=== PATIENT | female | born 1950 | race Caucasian/White ===

== ENCOUNTER 2021-11-08 09:55 | Outpatient (CLI) | payer MEDICARE, MEDICAID, SELFPAY ==
--- NOTE | 2021-11-08 10:03 | USCV_ITS ---
Paulina Kraus Age: 71 Gender: F : 1950 Exam Date: 11/08/2021 10:17 Ordering Phys: Gerald Cooper XX Technologist: [place] [facility] [place]: Aortic stenosis BP: 125 / 70 HR: 74 Rhythm: Sinus Technical Quality: Adequate MEASUREMENTS (Male / Female) Normal Values 2D ECHO LV Diastolic Diameter PLAX 4.0 cm 4.2 - 5.9 / 3.9 - 5.3 cm LV Systolic Diameter PLAX 2.1 cm IVS Diastolic Thickness 1.1 cm 0.6 - 1.0 / 0.6 - 0.9 cm IVS Systolic Thickness 1.3 cm LVPW Diastolic Thickness 1.1 cm 0.6 - 1.0 / 0.6 - 0.9 cm LVPW Systolic Thickness 1.3 cm LVOT Diameter 2.1 cm LV Ejection Fraction 2D Teich 79.0 % LV Ejection Fraction MOD 2C 71.9 % LV Ejection Fraction 2C AL 72.1 % LA Diameter 3.7 cm LA Width 3.8 cm LA Height 5.0 cm RA Width 3.8 cm RA Height 4.5 cm M-MODE LV Diastolic Diameter MM 4.2 cm 4.2 - 5.9 / 3.9 - 5.3 cm LV Systolic Diameter MM 2.7 cm LV Ejection Fraction MM Teich 66.6 % IVS Diastolic Thickness MM 1.2 cm 0.6 - 1.0 / 0.6 - 0.9 cm IVS Systolic Thickness MM 1.8 cm LVPW Diastolic Thickness MM 1.1 cm 0.6 - 1.0 / 0.6 - 0.9 cm LVPW Systolic Thickness MM 2.0 cm RV Diastolic Diameter MM 1.7 cm Aortic Annulus Diameter 2.7 cm LA Ao Ratio MM 1.4 MV E Point Septal Separation 0.9 cm DOPPLER AV Peak Velocity 512.8 cm/s LVOT Peak Velocity 108.0 cm/s AV Area Cont Eq vti 0.8 cm squared AV Area Cont Eq pk 0.7 cm squared MV Area PHT 5.0 cm squared Mitral E to A Ratio 0.7 MV E' Velocity 50.0 cm/s Mitral E to MV E' Ratio 15.7 Mitral E to LV E' Lateral Ratio 16.6 Mitral E to LV E' Septal Ratio 15.0 TR Peak Velocity 281.0 cm/s TR Peak Gradient 31.6 mmHg TV Peak E Velocity 68.0 cm/s Right Atrial Pressure 3.0 mmHg Pulmonary Artery Systolic Pressu 34.6 mmHg FINDINGS Left Ventricle Normal left ventricular cavity size. Normal left ventricular systolic function. Moderate concentric left ventricular hypertrophy. Left ventricular ejection fraction is estimated at 70 %. No regional wall motion abnormalities. Grade I diastolic dysfunction (abnormal relaxation filling pattern), normal to mildly elevated filling pressures. Right Ventricle Normal right ventricular size and systolic function. RVSP could not be calculated due to incomplete tricuspid regurgitation velocity profile. Right Atrium Normal right atrial size. Left Atrium Mildly increased left atrial size. Mitral Valve Moderate mitral annular calcification. No mitral valve stenosis. Trace mitral valve regurgitation. Aortic Valve Markedly thickened and calcified aortic valve. Severe aortic valve stenosis, pweak velocity 4.8 m/s, peak gradient 93 mm Hg, mean gradient 44 mmHg, HILDA 0.81 cm squared. Trace aortic valve regurgitation. Tricuspid Valve Tricuspid valve not well visualized. Pulmonic Valve Pulmonic valve not well visualized. No pulmonary valve stenosis. Pericardium No pericardial effusion. Aorta Normal size aortic root and proximal ascending aorta. Normal sized inferior vena cava. CONCLUSIONS 1. Normal left ventricular cavity size and systolic function. Moderate concentric left ventricular hypertrophy. Left ventricular ejection fraction is estimated at 70 %. No regional wall motion abnormalities. Grade I diastolic dysfunction (abnormal relaxation filling pattern), normal to mildly elevated filling pressures. 2. Severe aortic valve stenosis, pweak velocity 4.8 m/s, peak gradient 93 mm Hg, mean gradient 44 mmHg, HILDA 0.81 cm squared. 3. No prior similar studies to compare. Carolina Narayanan MD (Electronically Signed) Final Date: 09 November 2021 18:05 S
== END 2021-11-08 09:56 | disposition home or self-care (01) ==
PROVIDERS: PCP Specialist; Visit Provider Family Medicine
DX: I35.0 Nonrheumatic aortic (valve) stenosis (principal)
CPT/HCPCS: 93306

== ENCOUNTER → 2022-01-03 11:01 | Outpatient (BNVA) | payer MEDICARE, MEDICAID, SELFPAY | PROVIDERS: PCP Family Medicine; Visit Provider Internal Medicine Cardiovascular Disease | DX: I35.0 Nonrheumatic aortic (valve) stenosis (principal); E78.5 Hyperlipidemia, unspecified; E03.9 Hypothyroidism, unspecified | CPT/HCPCS: 99213 ==

== ENCOUNTER 2023-02-15 11:15 | Outpatient (CLI) | payer MEDICARE, SELFPAY ==
--- NOTE | 2023-02-15 11:31 | MM_ITS ---
WS: [id number] . BILATERAL SCREENING DIGITAL TOMOSYNTHESIS MAMMOGRAM WITH CAD HISTORY: SCREENING COMPARISON: 05/20/2018 Bilateral CC and MLO views with tomosynthesis and synthetic mammography submitted. Computer aided det ection analyzed. Breast composition: There are scattered areas of fibroglandular density. No suspicious masses, microc alcifications or architectural distortion. Bilateral breast calcifications. MM/[place] [id number] IMPRESSION: BI-RADS: 2-Benign FOLLOW UP: 1 Year Follow-up
== END 2023-02-15 11:16 | disposition home or self-care (01) ==
LOC: RAD 11:21
PROVIDERS: PCP Family Medicine; Visit Provider Registered Nurse
DX: Z12.31 Encounter for screening mammogram for malignant neoplasm of breast (principal)
CPT/HCPCS: 77063; 77067

== ENCOUNTER 2023-03-05 19:11 | Inpatient (IN) | payer MEDICARE, MEDICAID, SELFPAY ==
[2023-03-05 19:40] VITALS: BP 81/57; PULSE 95; RESP 16; TEMP 37.1; O2SAT 94; BMI 55.9
--- NOTE | 2023-03-05 20:03 | CTR_ITS ---
PROCEDURE INFORMATION: Exam: CT Head Without Contrast Exam date and time: 03/05/2023 8:32 PM Age: 72 years old Clinical indication: Pain; Headache; Additional info: Fall, head pain TECHNIQUE: Imaging protocol: Computed tomography of the head without contrast. Radiation optimization: All CT scans at this facility use at least one of these dose optimization techniques: automated exposure control; mA and/or kV adjustment per patient size (includes targeted exams where dose is matched to clinical indication); or iterative reconstruction. REPORTING DATA: Count of CT and Cardiac NM exams in prior 12 months: This patient has received 0 known CTs and 0 known cardiac nuclear medicine studies in the 12 months prior to the current study. COMPARISON: No relevant prior studies available. RADIATION DOSE METRICS: Total DLP (mGy-cm): 1841 FINDINGS: Brain: There is a cystic mass emanating from the left parasellar region measuring 3.8 x 3.0 cm maximum size for example on series 17, image 41. There are multiple regions of hypodensity in the left thalamus which may be chronic lacunar-type infarcts. There is mild mass effect with partial effacement of the left aspect of the 3rd ventricle. No acute hemorrhage. There are mild involutional white matter changes. No significant midline shift. Cerebral ventricles: Normal ventricular size. No ventriculomegaly. Paranasal sinuses: Visualized sinuses are unremarkable. No fluid levels. Mastoid air cells: Visualized mastoid air cells are well aerated. Bones/joints: Unremarkable. No acute fracture. Soft tissues: Unremarkable. CT/CT head wo con* [id number] IMPRESSION: 1. No acute intracranial findings. 2. There is a cystic mass in the left parasellar region with mass effect measuring 3.8 x 3.0 cm maximum size. There is adjacent regions of hypodensity in the left thalamus which may be related to chronic lacunar-type infarcts. Further characterization with MRI brain with and without contrast material is recommended. Differential diagnosis is most likely an arachnoid cyst or dermoid/epidermoid.
--- NOTE | 2023-03-05 20:11 | W.ED.FALL ---
Documented by User: Mike Randle DO 03/05/23 20:15 HPI - Fall General: Chief Complaint: Fall Stated Complaint: fall Time Seen by Provider: 03/05/23 19:56 History of Present Illness: Patient brought to the ER by EMS with complaints of falling off her bed injuring the back of her head approximately 1700. Patient denies being on any blood thinners any loss of consciousness or nausea vomiting. Patient is altered at baseline due to Alzheimer's but daughter states she is acting more tired than normal. MD complaint: fall Onset (ago): hour(s) (3 hours ago) Fall from: out of bed Place fall occurred: home Symptoms prior to fall: none Location of injury: head Associated symptoms-after fall: Reports no associated symptoms; Denies abdominal pain or chest pain Review of Systems General: Reports: 10 or more systems reviewed and unremarkable except in HPI and below Const: Denies: fever(s) or chills Eyes: Denies: change in vision or photophobia ENMT: Denies: throat pain or odynophagia Card: Denies: chest pain, palpitations or irregular heart rhythm Resp: Denies: dyspnea, productive cough or non-productive cough GI: Denies: abdominal pain, nausea, vomiting or diarrhea PFSH ED PFSH: Medical History COPD (chronic obstructive pulmonary disease) Dyslipidemia GERD (gastroesophageal reflux disease) Hypothyroidism Surgical History H/O: hysterectomy Social History Smoking and tobacco status: current every day smoker Physical Exam Const: COMMON NORMALS: no acute distress, average body habitus, no limitations, healthy appearing, alert and well nourished HENMT: COMMON NORMALS: normocephalic, hearing grossly normal bilaterally, external ears normal, Normal external nose present and moist oral mucous membranes HEAD & SCALP: normocephalic and other (Abrasion to posterior superior occipital area.) NOSE: Normal external nose present EXTERNAL EAR: Yes external ears normal Eye: COMMON NORMALS: Equal, round and reactive pupils present, EOMs intact bilaterally, conjunctivae normal and no scleral icterus CONJUNCTIVA: Yes conjunctivae normal PUPIL: Yes Equal, round and reactive pupils present Neck/C-Spine: COMMON NORMALS: full ROM, no lymphadenopathy, supple, no meningeal signs, no JVD and Thyroid normal THYROID: Thyroid normal Lymph: LYMPHATIC: no lymphadenopathy noted Chest: COMMONS NORMALS: normal inspection of the chest and normal palpation of entire chest wall Resp: COMMON NORMALS: normal respiratory effort, No retractions, No use of accessory muscles and clear to auscultation bilaterally AUSCULTATION: clear to auscultation bilaterally Cardio: COMMON NORMALS: no JVD, regular rate, regular rhythm, S1 normal heart sound present, S2 normal heart sound present, No gallops present (Cardio), No clicks present (Cardio), No murmurs present (Cardio) and No rub (Cardio) RATE: regular rate RHYTHM: regular rhythm HEART SOUNDS: S1 normal heart sound present and S2 normal heart sound present GI: COMMON NORMALS: Normal to inspection, nondistended, normoactive bowel sounds present, Soft to palpation, non-tender, No hepatosplenomegaly present and no masses PALPATION: Yes Soft to palpation and Yes No hepatosplenomegaly present : COMMON NORMALS: Yes no CVA tenderness BLADDER/KIDNEY EXAM: Yes no CVA tenderness Back/Pelvis: COMMON NORMALS: no CVA tenderness, thoracic and lumbar spine normal to inspection and no thoracic nor lumbar tenderness Neuro: SENSORIUM/ORIENTATION: Yes alert MENINGEAL SIGNS: Yes no meningeal signs Course Vital Signs: Vital signs: Vital Signs Temperature 98.8 F 03/05/23 19:40 Pulse Rate 90 03/05/23 23:12 Respiratory Rate 18 03/05/23 23:12 Blood Pressure 91/54 03/05/23 23:12 Pulse Oximetry 97 03/05/23 23:12 Oxygen Delivery Me thod Room Air 03/05/23 23:12 MDM - Fall Differential Diagnosis Likely concussion without loss of consciousness; Unlikely syncope, dislocation of shoulder region, fracture of wrist, compression fracture or concussion with loss of consciousness Medical Records I reviewed the patient's medical records. Lab Data I reviewed the patient's lab results. 03/05/23 20:05 03/05/23 20:[address] 03/05/23 20:03 IMPRESSION: 1. No acute intracranial findings. 2. There is a cystic mass in the left parasellar region with mass effect measuring 3.8 x 3.0 cm maximum size. There is adjacent regions of hypodensity in the left thalamus which may be related to chronic lacunar-type infarcts. Further characterization with MRI brain with and without contrast material is recommended. Differential diagnosis is most likely an arachnoid cyst or dermoid/epidermoid. ADDENDUM: 03/05/232132 THIS REPORT CONTAINS FINDINGS THAT MAY BE CRITICAL TO PATIENT CARE. The findings were verbally communicated via telephone conference with Mike Byrne at 9:30 PM CDT on 03/05/2023. The findings were acknowledged and understood. Head MRI 03/05/23 21:43 IMPRESSION: 1. No acute intracranial findings. 2. 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 Adjacent to this there is cystic changes in the left thalamus and cerebral peduncle which are most likely giant perivascular spaces. No suspicious appearing intracranial mass. Chest X-Ray 03/05/23 21:50 IMPRESSION: Mild perihilar infiltrates. Correlate for pulmonary vascular congestion versus pneumonia. Laboratory Results WBC 25.9 10^3/uL (4.0-10.0) H 03/05/23 20:05 RBC 4.16 10^6/uL (4.1-5.3) 03/05/23 20:05 Hgb 12.9 g/dL (11.5-15.3) 03/05/23 20:05 Hct 40.0 % (37.0-47.0) 03/05/23 20:05 MCV 96.2 fl (81-99) 03/05/23 20:05 MCH 31.0 pg (28.0-34.0) 03/05/23 20:05 MCHC 32.3 g/dL (30.0-36.0) 03/05/23 20:05 RDW 13.2 % (12.1-15.1) 03/05/23 20:05 Plt Count 313 10^3/cmm (130-400) 03/05/23 20:05 MPV 10.1 fL (7.4-10.4) 03/05/23 20:05 Neut % (Auto) 90.2 % 03/05/23 20:05 Lymph % (Auto) 2.6 % 03/05/23 20:05 [place] % (Auto) 6.1 % 03/05/23 20:05 Eos % (Auto) 0.0 % 03/05/23 20:05 Baso % (Auto) 0.3 % 03/05/23 20:05 Neut # (Auto) 23.39 10^3/uL (1.8-7.7) H 03/05/23 20:05 Lymph # (Auto) 0.7 10^3/uL (0.8-4.8) L 03/05/23 20:05 [place] # (Auto) 1.6 10^3/uL (0.2-0.9) H 03/05/23 20:05 Eos # (Auto) 0.0 10^3/uL (0.0-0.8) 03/05/23 20:05 Baso # (Auto) 0.1 10^3/uL (0.0-0.1) 03/05/23 20:05 Nucleated RBC % (auto) 0 % 03/05/23 20:05 Nucleated RBCs # 0.0 /100WBC 03/05/23 20:05 Sodium 136 mmol/L (136-145) 03/05/23 20:05 Potassium 3.7 mmol/L (3.5-5.1) 03/05/23 20:05 Chloride 98 mmol/L (98-107) 03/05/23 20:05 Carbon Dioxide 22 mmol/L (22-29) 03/05/23 20:05 Anion Gap 19.7 (5-19) H 03/05/23 20:05 BUN 17 mg/dL (8-23) 03/05/23 20:05 Creatinine 1.0 mg/dL (0.5-0.9) H 03/05/23 20:05 GFR Calculation Not Reportable 03/05/23 20:05 Glucose 119 mg/dL (65-115) H 03/05/23 20:05 Calculated Osmolality 285 mOsm/kg (285-295) 03/05/23 20:05 Lactic Acid 2.0 mmol/L (0.5-2.2) 03/05/23 22:13 Calcium 9.2 mg/dL (8.5-10.5) 03/05/23 20:05 Total Bilirubin 0.5 mg/dL (0.15-1.2) 03/05/23 20:05 AST 36 U/L (0-32) H 03/05/23 20:05 ALT 11 U/L (0-33) 03/05/23 20:05 Alkaline Phosphatase 138 U/L (35-105) H 03/05/23 20:05 Total Protein 7.2 g/dL (6.6-8.7) 03/05/23 20:05 Albumin 3.9 g/dL (3.5-5.2) 03/05/23 20:05 Globulin 3.3 g/dL (1.3-4.6) 03/05/23 20:05 Procalcitonin 1.15 ng/mL (0-0.5) H 03/05/23 22:13 Urine Color Yellow (Yellow) 03/05/23 21:11 Urine Appearance Sl hazy (CLEAR) A 03/05/23 21:11 Urine pH 5 (5-7) 03/05/23 21:11 Ur Specific [place] 1.020 (1.005-1.030) 03/05/23 21:11 Urine Protein Trace (Negative) 03/05/23 21:11 Urine Glucose (UA) Norm (Normal) 03/05/23 21:11 Urine Ketones Negative (Negative) 03/05/23 21:11 Urine Blood 2+ (Negative) H 03/05/23 21:11 Urine Nitrate Positive (Negative) H 03/05/23 21:11 Urine Bilirubin Neg (Negative) 03/05/23 21:11 Urine Urobilinogen Neg mg/dL (Negative) 03/05/23 21:11 Ur Leukocyte Esterase Negative (Negative) 03/05/23 21:11 Urine RBC 0-4 /hpf (0-2) H 03/05/23 21:11 Urine WBC 5-10 /hpf (0-5) H 03/05/23 21:11 Ur Squamous Epith Cells 0-4 /hpf (0-5) H 03/05/23 21:11 Amorphous Sediment Not Reportable 03/05/23 21:11 Urine Bacteria 4+ /hpf (NONE) H 03/05/23 21:11 Discharge Plan Discharge Patient Disposition: Admitted As Inpatient Clinical Impression: Acute cystitis, Closed head injury Condition: Stable Prescriptions: No Action oxybutynin chloride 5 mg tablet 5 mg PO TID sennosides-docusate sodium [Stimulant Laxative Plus] 8.6-50 mg tablet 1 tab-cap PO BID venlafaxine 75 mg capsule,extended release 24hr 75 mg PO DAILY atorvastatin 20 mg tablet 20 mg PO DAILY albuterol sulfate [Ventolin HFA] 90 mcg/actuation HFA aerosol inhaler 1 inh inhalation BID famotidine 20 mg tablet 20 mg PO BID ondansetron HCl 4 mg tablet 4 mg PO Q8H PRN Referrals: Gerald Cooper [Primary Care Provider] - Coding Level of Care Code ED Satellite Installation Technician for Chg Fwd Documented by User: Ronn Carr MD 03/05/23 23:38 HPI - Fall General: Chief Complaint: Fall Stated Complaint: fall Time Seen by Provider: 03/05/23 19:56 PFS ED PFSH: Medical History COPD (chronic obstructive pulmonary disease) Dyslipidemia GERD (gastroesophageal reflux disease) Hypothyroidism Surgical History H/O: hysterectomy Social History Smoking and tobacco status: current every day smoker Course Vital Signs: Vital signs: Vital Signs Temperature 98.8 F 03/05/23 19:40 Pulse Rate 90 03/05/23 23:12 Respiratory Rate 18 03/05/23 23:12 Blood Pressure 91/54 03/05/23 23:12 Pulse Oximetry 97 03/05/23 23:12 Oxygen Delivery Me thod Room Air 03/05/23 23:12 MDM - Fall Medical Decision Making Patient presents after a fall MRI does show a cyst no acute findings she has no signs of a bleed she does have a urinary tract infection with a leukocytosis will admit at this time for treatment. I took care of her from Dr. Randle to follow the MRI. Lab Data 03/05/23 20:05 03/05/23 20:[address] 03/05/23 20:03 IMPRESSION: 1. No acute intracranial findings. 2. There is a cystic mass in the left parasellar region with mass effect measuring 3.8 x 3.0 cm maximum size. There is adjacent regions of hypodensity in the left thalamus which may be related to chronic lacunar-type infarcts. Further characterization with MRI brain with and without contrast material is recommended. Differential diagnosis is most likely an arachnoid cyst or dermoid/epidermoid. ADDENDUM: 03/05/232132 THIS REPORT CONTAINS FINDINGS THAT MAY BE CRITICAL TO PATIENT CARE. The findings were verbally communicated via telephone conference with Mike Byrne at 9:30 PM CDT on 03/05/2023. The findings were acknowledged and understood. Head MRI 03/05/23 21:43 IMPRESSION: 1. No acute intracranial findings. 2. 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 Adjacent to this there is cystic changes in the left thalamus and cerebral peduncle which are most likely giant perivascular spaces. No suspicious appearing intracranial mass. Chest X-Ray 03/05/23 21:50 IMPRESSION: Mild perihilar infiltrates. Correlate for pulmonary vascular congestion versus pneumonia. Laboratory Results WBC 25.9 10^3/uL (4.0-10.0) H 03/05/23 20:05 RBC 4.16 10^6/uL (4.1-5.3) 03/05/23 20:05 Hgb 12.9 g/dL (11.5-15.3) 03/05/23 20:05 Hct 40.0 % (37.0-47.0) 03/05/23 20:05 MCV 96.2 fl (81-99) 03/05/23 20:05 MCH 31.0 pg (28.0-34.0) 03/05/23 20:05 MCHC 32.3 g/dL (30.0-36.0) 03/05/23 20:05 RDW 13.2 % (12.1-15.1) 03/05/23 20:05 Plt Count 313 10^3/cmm (130-400) 03/05/23 20:05 MPV 10.1 fL (7.4-10.4) 03/05/23 20:05 Neut % (Auto) 90.2 % 03/05/23 20:05 Lymph % (Auto) 2.6 % 03/05/23 20:05 [place] % (Auto) 6.1 % 03/05/23 20:05 Eos % (Auto) 0.0 % 03/05/23 20:05 Baso % (Auto) 0.3 % 03/05/23 20:05 Neut # (Auto) 23.39 10^3/uL (1.8-7.7) H 03/05/23 20:05 Lymph # (Auto) 0.7 10^3/uL (0.8-4.8) L 03/05/23 20:05 [place] # (Auto) 1.6 10^3/uL (0.2-0.9) H 03/05/23 20:05 Eos # (Auto) 0.0 10^3/uL (0.0-0.8) 03/05/23 20:05 Baso # (Auto) 0.1 10^3/uL (0.0-0.1) 03/05/23 20:05 Nucleated RBC % (auto) 0 % 03/05/23 20:05 Nucleated RBCs # 0.0 /100WBC 03/05/23 20:05 Sodium 136 mmol/L (136-145) 03/05/23 20:05 Potassium 3.7 mmol/L (3.5-5.1) 03/05/23 20:05 Chloride 98 mmol/L (98-107) 03/05/23 20:05 Carbon Dioxide 22 mmol/L (22-29) 03/05/23 20:05 Anion Gap 19.7 (5-19) H 03/05/23 20:05 BUN 17 mg/dL (8-23) 03/05/23 20:05 Creatinine 1.0 mg/dL (0.5-0.9) H 03/05/23 20:05 GFR Calculation Not Reportable 03/05/23 20:05 Glucose 119 mg/dL (65-115) H 03/05/23 20:05 Calculated Osmolality 285 mOsm/kg (285-295) 03/05/23 20:05 Lactic Acid 2.0 mmol/L (0.5-2.2) 03/05/23 22:13 Calcium 9.2 mg/dL (8.5-10.5) 03/05/23 20:05 Total Bilirubin 0.5 mg/dL (0.15-1.2) 03/05/23 20:05 AST 36 U/L (0-32) H 03/05/23 20:05 ALT 11 U/L (0-33) 03/05/23 20:05 Alkaline Phosphatase 138 U/L (35-105) H 03/05/23 20:05 Total Protein 7.2 g/dL (6.6-8.7) 03/05/23 20:05 Albumin 3.9 g/dL (3.5-5.2) 03/05/23 20:05 Globulin 3.3 g/dL (1.3-4.6) 03/05/23 20:05 Procalcitonin 1.15 ng/mL (0-0.5) H 03/05/23 22:13 Urine Color Yellow (Yellow) 03/05/23 21:11 Urine Appearance Sl hazy (CLEAR) A 03/05/23 21:11 Urine pH 5 (5-7) 03/05/23 21:11 Ur Specific [place] 1.020 (1.005-1.030) 03/05/23 21:11 Urine Protein Trace (Negative) 03/05/23 21:11 Urine Glucose (UA) Norm (Normal) 03/05/23 21:11 Urine Ketones Negative (Negative) 03/05/23 21:11 Urine Blood 2+ (Negative) H 03/05/23 21:11 Urine Nitrate Positive (Negative) H 03/05/23 21:11 Urine Bilirubin Neg (Negative) 03/05/23 21:11 Urine Urobilinogen Neg mg/dL (Negative) 03/05/23 21:11 Ur Leukocyte Esterase Negative (Negative) 03/05/23 21:11 Urine RBC 0-4 /hpf (0-2) H 03/05/23 21:11 Urine WBC 5-10 /hpf (0-5) H 03/05/23 21:11 Ur Squamous Epith Cells 0-4 /hpf (0-5) H 03/05/23 21:11 Amorphous Sediment Not Reportable 03/05/23 21:11 Urine Bacteria 4+ /hpf (NONE) H 03/05/23 21:11 Discharge Plan Discharge Patient Disposition: Admitted As Inpatient Clinical Impression: Acute cystitis, Closed head injury Condition: Stable Prescriptions: No Action oxybutynin chloride 5 mg tablet 5 mg PO TID sennosides-docusate sodium [Stimulant Laxative Plus] 8.6-50 mg tablet 1 tab-cap PO BID venlafaxine 75 mg capsule,extended release 24hr 75 mg PO DAILY atorvastatin 20 mg tablet 20 mg PO DAILY albuterol sulfate [Ventolin HFA] 90 mcg/actuation HFA aerosol inhaler 1 inh inhalation BID famotidine 20 mg tablet 20 mg PO BID ondansetron HCl 4 mg tablet 4 mg PO Q8H PRN Referrals: Gerald Cooper [Primary Care Provider] - Coding Level of Care Code ED Satellite Installation Technician for Brendan Peralta
[2023-03-05 20:12] VITALS: BP 79/58; PULSE 93; RESP 18; O2SAT 94
[2023-03-05 20:15] LABS: Basophils # 0.1 10^3/uL (0.0-0.1); Basophils % 0.3 %; Hemoglobin 12.9 g/dL (11.5-15.3); Lymphocytes # 0.7 10^3/uL (0.8-4.8); Lymphocytes % 2.6 %; Mean Corpuscular HGB Conc 32.3 g/dL (30.0-36.0); Mean Corpuscular Volume 96.2 fl (81-99); Mean Platelet Volume 10.1 fL (7.4-10.4); Monocytes # 1.6 10^3/uL (0.2-0.9); Monocytes % 6.1 %; Neutrophils # 23.39 10^3/uL (1.8-7.7); Neutrophils % 90.2 %; Nucleated Red Blood Cells % 0 %; Platelet Count 313 10^3/cmm (130-400); Red Blood Count 4.16 10^6/uL (4.1-5.3); Red Cell Distribution Width 13.2 % (12.1-15.1); White Blood Count 25.9 10^3/uL (4.0-10.0)
[2023-03-05] MEDS: sodium chloride 0.9% 1,000 ML 999 ML IV (20:16)
[2023-03-05 20:40] LABS: Alanine Aminotransferase 11 U/L (0-33); Albumin Level 3.9 g/dL (3.5-5.2); Alkaline Phosphatase 138 U/L (35-105); Anion Gap 19.7 (5-19); Aspartate Amino Transferase 36 U/L (0-32); Blood Urea Nitrogen 17 mg/dL (8-23); Calcium 9.2 mg/dL (8.5-10.5); Carbon Dioxide 22 mmol/L (22-29); Chloride 98 mmol/L (98-107); Globulin 3.3 g/dL (1.3-4.6); Glucose 119 mg/dL (65-115); Osmolality Calculated 285 mOsm/kg (285-295); Potassium 3.7 mmol/L (3.5-5.1); Sodium 136 mmol/L (136-145); Total Bilirubin 0.5 mg/dL (0.15-1.2); Total Protein 7.2 g/dL (6.6-8.7)
[2023-03-05 20:53] VITALS: BP 97/58; PULSE 91; RESP 17; O2SAT 95
[2023-03-05 21:14] VITALS: BP 94/52; PULSE 91; RESP 18; O2SAT 96
[2023-03-05 21:37] VITALS: BP 114/58; PULSE 87; RESP 20; O2SAT 96
[2023-03-05 21:42] LABS: Add Urine Microscopic? YES; Bilirubin Urine Neg (Negative); Blood Urine 2+ (Negative); Glucose Urine UA Norm (Normal); Ketones Urine Negative (Negative); Leukocyte Esterase Urine Negative (Negative); Nitrate Urine Positive (Negative); Protein Urine Trace (Negative); Urine Appearance SL Hazy (CLEAR); Urine Color Yellow (Yellow); Urobilinogen Urine Neg (Negative); pH Urine 5 (5-7)
[2023-03-05 21:43] LABS: Add Urine Culture? Yes; Bacteria Urine 4+ /hpf; RBC Urine 0-4 /hpf (0-2); Squamous Epithelial Cell Urine 0-4 /hpf (0-5)
--- NOTE | 2023-03-05 21:43 | MRR_ITS ---
PROCEDURE INFORMATION: Exam: MR Head Without and With Contrast Exam date and time: 03/05/2023 10:27 PM Age: 72 years old Clinical indication: Injury or trauma; Fall; Other: Fell and hit head; Speech disturbance; Aphasia; Additional info: Abnormal CT, parasellar cytic mass, falls, leukocytosis, pain TECHNIQUE: Imaging protocol: Magnetic resonance imaging of the head without and with contrast. Contrast material: MULTIHANCE; Contrast volume: 20 ml; Contrast route: INTRAVENOUS (IV); Other contrast: Rectal; COMPARISON: CT head wo con* [id number] 03/05/2023 8:32 PM FINDINGS: Brain: In the region of the left choroidal fissure there is a large CSF density mass which measures 3.2 cm AP x 3.4 cm transverse by 2.4 cm craniocaudal. This has suppression on FLAIR imaging, does not demonstrate diffusion restriction and does not enhance on the postcontrast imaging. This bulges towards the left parasellar region along its medial course. The mass elevates the left basal ganglia and compresses inferiorly the left hippocampus. In the left thalamus and cerebral peduncle there are numerous adjacent regions of cystic change measuring in conglomerate dimension 2.3 x 1.9 cm for example on series 601, image 12 which are likely giant perivascular spaces. Mild mass effect appearance seen with partially effaced left lateral ventricle. There is no midline shift. Mild involutional changes of the white matter stable. No diffusion restriction. No acute intracranial hemorrhage. Cerebral ventricles: Normal ventricular size. Bones/joints: Unremarkable. Paranasal sinuses: Scattered paranasal sinus mucosal thickening, without air-fluid level present. Mastoid air cells: Trace [id number]-left mastoid fluid. Orbital cavities: Unremarkable. Soft tissues: Unremarkable. Other findings: Study is motion degraded. MR/MR head wo/w con [id number] IMPRESSION: 1. No acute intracranial findings. 2. 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 Adjacent to this there is cystic changes in the left thalamus and cerebral peduncle which are most likely giant perivascular spaces. No suspicious appearing intracranial mass.
--- NOTE | 2023-03-05 21:50 | XRR_ITS ---
PROCEDURE INFORMATION: Exam: XR Chest Exam date and time: 03/05/2023 10:00 PM Age: 72 years old Clinical indication: Injury or trauma; Fall; Blunt trauma (contusions or hematomas); Additional info: Leukkocytosis TECHNIQUE: Imaging protocol: Radiologic exam of the chest. Views: 1 view. COMPARISON: No relevant prior studies available. FINDINGS: Lungs: Mild bilateral perihilar infiltrates. Pleural spaces: Unremarkable. No pleural effusion. No pneumothorax. Heart/Mediastinum: Mild cardiomegaly. Bones/joints: Unremarkable. XR/XR chest 1V portable [id number] IMPRESSION: Mild perihilar infiltrates. Correlate for pulmonary vascular congestion versus pneumonia.
--- NOTE | 2023-03-05 22:24 | PC.NURSE ---
Patient left for MRI via wheelchair with reliability technician
[2023-03-05] MEDS: gadobenate dimeglumine 20 mL vial IV (22:49)
[2023-03-05 22:57] LABS: Procalcitonin 1.15 ng/mL (0-0.5)
--- NOTE | 2023-03-05 23:02 | PC.NURSE ---
Patient returned from MRI
[2023-03-05] MEDS: cefTRIAXone 1,000 MG in sodium chloride 0.9% (plus) 50 ML 100 MG IV (23:08)
[2023-03-05 23:12] VITALS: BP 91/54; PULSE 90; RESP 18; O2SAT 97
[2023-03-06] VITALS (38 sets, daily range): BP systolic 86–129; BP diastolic 42–98; PULSE 71–96; RESP 14–28; TEMP 36.8; O2SAT 90–99; BMI 43.6
--- NOTE | 2023-03-06 00:18 | CTR_ITS ---
PROCEDURE INFORMATION: Exam: CT Abdomen And Pelvis Without Contrast Exam date and time: 03/06/2023 12:45 AM Age: 72 years old Clinical indication: Abnormal findings; Abnormal lab test; Elevated wbc; Prior surgery; Surgery type: Hysterectomy; Patient HX: Wbc of 26k with bacteriuria. ; Additional info: UTI, kidney stone TECHNIQUE: Imaging protocol: Computed tomography of the abdomen and pelvis without contrast. Radiation optimization: All CT scans at this facility use at least one of these dose optimization techniques: automated exposure control; mA and/or kV adjustment per patient size (includes targeted exams where dose is matched to clinical indication); or iterative reconstruction. REPORTING DATA: Count of CT and Cardiac NM exams in prior 12 months: This patient has received [address] and 0 known cardiac nuclear medicine studies in the 12 months prior to the current study. COMPARISON: CR (CHEST, ) 03/05/2023 10:00 PM RADIATION DOSE METRICS: Total DLP (mGy-cm): 879.65 FINDINGS: Lungs: There is a 5 mm right lower lobe calcified granuloma present with minimal right basilar atelectasis. Heart: Cardiomegaly with valvular calcifications. Liver: Normal. No mass. Gallbladder and bile ducts: The gallbladder is distended with gallstones. Pancreas: Normal. No ductal dilation. Spleen: Granuloma in the spleen. Adrenal glands: Mildly thickened left adrenal gland likely adenomatous hyperplasia. Kidneys and ureters: Normal. No hydronephrosis. Stomach and bowel: There are postsurgical changes in the small bowel midabdomen. Appendix: No evidence of appendicitis. Intraperitoneal space: Unremarkable. No free air. No significant fluid collection. Vasculature: Unremarkable. No abdominal aortic aneurysm. Lymph nodes: Unremarkable. No enlarged lymph nodes. Urinary bladder: There is air in the bladder with excreted contrast. Reproductive: Unremarkable as visualized. Bones/joints: Unremarkable. No acute fracture. Soft tissues: There is a large left infraumbilical ventral abdominal wall hernia containing portions of the descending colon. There is stranding in the hernia sac with neck of the hernia measuring 3 cm. There is also thickening of the colon at the level of the hernia neck with stool seen in the colon proximal and distal to the hernia sac. No high-grade obstruction is seen. Soft tissue inflammation is seen in the left ventral abdominal wall adjacent to the hernia sac. There is no drainable abscess or fluid collection seen. CT/CT abdomen pelvis wo con [id number] IMPRESSION: 1. There is a left lower quadrant ventral abdominal wall hernia with narrow neck containing a portion of descending colon. The colon in the neck of the hernia is thickened and there is likely partial large bowel obstruction present. There is stranding in the hernia sac suspicious for strangulation- correlate for possible incarceration clinically. There is also adjacent soft tissue inflammation suspicious for cellulitis. No abscess or fluid collection is seen. 2. Distended gallbladder with gallstones. Suggest right upper quadrant ultrasound correlation. 3. Small focus of air in the bladder. Correlate for cystitis.
--- NOTE | 2023-03-06 00:33 | ECG_ITS ---
[facility] Test Date: 2023-03-06 Pat Name: Paulina Kraus Department: Room: ICU04 Gender: Female Living Supervisor: : 1950 Requested By: Tarik Green Order Number: [id number] Ru MD: Angel Casillas M.D. Measurements Intervals [place] Rate: 83 P: 51 [place]: 136 QRS: -19 QRSD: 93 T: 85 QT: 348 QTc: 410 Interpretive Statements SINUS RHYTHM LEFT VENTRICULAR HYPERTROPHY AND ST-T CHANGE [VOLTAGE CRITERIA PLUS ST/T ABNORMALITY] POSSIBLE ANTERIOR MYOCARDIAL INFARCTION , OF INDETERMINATE AGE [30 ms Q WAVE IN V3/V4, OR R < 0.2 mV IN V4] No previous ECG available for comparison Electronically Signed On 03-06-2023 14:18:18 CDT by Angel Casillas M.D. [id number]
--- NOTE | 2023-03-06 00:34 | P.HP_ITS ---
Providers/Chief Complaint Admitting Physician: Tarik Green MD Primary Care Provider: Gerald Cooper Chief Complaint: fall History of Present Illness Paulina Kraus is a 72 year old female history of [place] PD, history of smoking, hypothyroidism, GERD CKD stage III, dyslipidemia, dementia, history of aortic stenosis, patient has declined TAVR, declined heart cath who presents [facility] due to increased confusion, and fall out of bed. Currently patient is alert to person, not to place, to time, she can follow commands, but is quite confused, family members at bedside tells me that she lives at home with her daughter and her son-in-law, she has been more confused recently, she has been falling, this evening, she fell out of bed, not exactly sure how, she has dementia, no fevers, no chills, no cough. She denies any shortness of breath, she is on room air, she shows me that she has a knot in her abdomen that she wants me to take a look at that it bothers her sometimes. She denies any headache, no blurry vision, no neck pain, no back pain, no joint pain, but family numbers do tell me that she has been complaining of right knee pain recently she has had a right knee replaced Review of Systems Const: Denies: fever(s) Card: Denies: chest pain Resp: Denies: dyspnea GI: Denies: abdominal pain : Denies: flank pain, difficulty voiding or dysuria Neuro: Denies: headache(s) Medications/Allergies Home Medications Medication Instructions Recorded Confirmed Last Taken Type albuterol sulfate 90 mcg/actuation 1 inh inhalation BID 12/06/21 Unknown Hist ory aerosol inhaler (Ventolin HFA) atorvastatin 20 mg tablet 20 mg PO DAILY 12/06/21 Unknown History famotidine 20 mg tablet 20 mg PO BID 12/06/21 Unknown History ondansetron HCl 4 mg tablet 4 mg PO Q8H PRN 12/06/21 Unknown History oxybutynin chloride 5 mg tablet 5 mg PO TID 12/06/21 Unknown History sennosides 8.6 mg-docusate sodium 1 tab-cap PO BID 12/06/21 Unknown History 50 mg tablet (Stimulant Laxative Plus) venlafaxine 75 mg capsule,extended 75 mg PO DAILY 12/06/21 Unknown History release 24 hr Allergies Allergy/AdvReac Type Severity Reaction Status Date / Time Latex, Natural Rubber Allergy Unknown unknown Verified 07/10/22 08:44 tomato Allergy Unknown unknown Verified 07/10/22 08:44 PFSH Acute PFSH: Medical History COPD (chronic obstructive pulmonary disease) Dyslipidemia GERD (gastroesophageal reflux disease) Hypothyroidism Surgical History H/O: hysterectomy Social History Smoking and tobacco status: current every day smoker Vitals/I&O/Wt Last Vital Signs Temp 98.8 F 03/05/23 19:40 Pulse 83 03/06/23 00:05 Resp 18 03/05/23 23:12 BP 98/64 03/06/23 00:05 Pulse Ox 97 03/06/23 00:05 O2 Del Method Room Air 03/06/23 00:05 Weight last 48 hrs Weight 88.451 kg Physical Exam Const: COMMON NORMALS: no acute distress ORIENTATION/CONSCIOUSNESS: Yes awake, Yes oriented to person and Yes confused; not oriented to place and not oriented to time HENMT: COMMON NORMALS: normocephalic HEAD & SCALP: normocephalic Eye: COMMON NORMALS: Equal, round and reactive pupils present Neck/C-Spine: COMMON NORMALS: no JVD Lymph: LYMPHATIC: no lymphadenopathy noted Resp: COMMON NORMALS: normal respiratory effort, No retractions, No use of accessory muscles and clear to auscultation bilaterally AUSCULTATION: clear to auscultation bilaterally Cardio: COMMON NORMALS: no JVD, regular rate, regular rhythm, S1 normal heart sound present and S2 normal heart sound present RATE: regular rate RHYTHM: regular rhythm HEART SOUNDS: S1 normal heart sound present and S2 normal heart sound present GI: COMMON NORMALS: Normal to inspection, nondistended, normoactive bowel sounds present, Soft to palpation, non-tender and no bruits PALPATION: Yes Soft to palpation OTHER: Masslike density, left lower quadrant, site of incisional hernia : COMMON NORMALS: Yes no CVA tenderness Extremity: COMMON NORMALS: no pedal edema Neuro: OTHER: pupils equal round reactive to light, can follow some neurologic testing such as squeezing my fingers, wiggling her toes able to smile for me Data 03/05/23 20:05 03/05/23 20:05 Micro: Microbiology 03/05/23 22:16 Blood Culture - Preliminary Blood SPECIMEN COLLECTED 03/05/23 22:13 Blood Culture - Preliminary Blood SPECIMEN COLLECTED A&P Assessment and plan (1) Acute encephalopathy: (2) Fall: (3) Acute cystitis: (4) GERD (gastroesophageal reflux disease): (5) Dyslipidemia: (6) Dementia: (7) Aortic stenosis: (8) Hypothyroidism: (9) COPD exacerbation: (10) Pneumonia: (11) DINA (acute kidney injury): Plan Acute encephalopathy -Secondary to UTI -Monitor mentation -Aspiration precautions, neurochecks Urinary tract infection -With leukocyte elevated Pro-Jl -Start Zosyn DINA sec to dehydration, UTI, will get CPK given her fall, IV fluids Recurrent falls, PT OT Pneumonia: pneumonia on chest x-ray, Zosyn, MRSA nares PCR, vancomycin COPD exacerbation, DuoNeb, budesonide, Decadron Masslike density right lower quadrant, CT scan Hypothyroidism, not on levothyroxine, check TSH Full code, Lovenox for DVT prophylaxis Attestations Medical Necessity Statement*: Patient requires hot sedation for acute encephalopathy, UTI, inpatient, greater than 2 midnights Diagnoses Acute encephalopathy G93.40 Fall W19.XXXA Acute cystitis N30.00 GERD (gastroesophageal reflux disease) K21.9 Dyslipidemia E78.5 Dementia F03.90 Aortic stenosis I35.0 Hypothyroidism E03.9 COPD exacerbation J44.1 Pneumonia J18.9 DINA (acute kidney injury) N17.9
[2023-03-06] MEDS: sodium chloride 0.9% 1,000 ML 75 ML IV ×2 (01:26→13:35)
[2023-03-06] MEDS: dexamethasone 10 mg/mL INJ 6 MG IVP (01:29)
[2023-03-06] MEDS: enoxaparin 40 mg/0.4 mL Syringe SUBCUT (01:32)
--- NOTE | 2023-03-06 01:40 | US_ITS ---
WS: [id number] Gallbladder and right upper quadrant ultrasound, 03/06/2023 Clinical Data: gallstones Comparison: None. Findings: The gallbladder shows sludge and at least 2 stones. The wall measures 0.2 cm with no pericholecystic fluid. The common bile duct is 0.5 cm and there are no intrahepatic ductal abnormalities. Liver shows no cysts, masses or dilated intrahepatic ducts. The main portal vein shows normal flow. The pancreas is obscured by overlying bowel gas but no cyst, pseudocyst, or evidence of pancreatitis is noted. Right kidney measures 10.6 cm and no cyst, masses or hydronephrosis can be seen. The aorta and inferior vena cava show no vascular abnormalities. US/US gall bladder [id number] Impression: Sludge in the gallbladder and at least 2 gallstones.
--- NOTE | 2023-03-06 01:40 | PC.PHAR ---
Pharmacokinetic dosing service Date: 03/06/2023 Time: 139 Objective: Patient: Paulina Kraus Floor: ICU-4 Age: 72 yo Serum creatinine: 1.0 mg/dL Height: 49.5 Inches Weight (kg): 88.451 Diagnosis: Relevant medical/social history: Cultures and sensitivities: Other labs: Assessment: IBW (kg): 37.54 Dosing wt(kg): 57.9 Estimated Creatinine clearance (ml/min): 30.6 CRCL method: Cockcroft and Gault using ibw(default). Drug selected: Vancomycin Loading dose (mg): 0 Vd (liters): 52.1 (factor used: 0.9 L/kg) Clive (hr-1): 0.030 Half life (hrs): 23.10 Recommended dose: 1000 mg Interval: 24 hrs Infusion time (hrs): 1.5 Predicted peak (mcg/mL): 36.6 Predicted trough (mcg/mL): 18.64 Adjusted body weight was selected for vancomycin dosing. To switch back, select the total body weight option above. Renal function is stable [ ] /unstable [ ] Recommendations: Give Vancomycin 1000 mg q 24 hrs with an expected Cpeak of 36.6 mcg/ml and an expected Ctrough of 18.64 mcg/ml Renal dosing of other antibiotics (review renal dosing of other medications and list guidelines here): Thank you for the consult, will continue to follow. Signature: Henny Austin [facility]
[2023-03-06 01:50] LABS: C Reactive Protein 56.2 mg/L (0.0-4.9); Chol HDL Ratio 2.79 mg/dL (0.0-4.40); Cholesterol 120 mg/dL (0-200); HDL Cholesterol 43 mg/dL (60-100); LDL Cholesterol Calculated 63 mg/dL (50-129); LDL HDL Ratio 1.47 RATIO (0.00-3.22); NT Pro B Type Natriuretic Pept 1815 pg/mL (0-125); Thyroid Stimulating Hormone 0.73 uIU/mL (0.27-4.20); Triglycerides 72 mg/dL (0-150)
[2023-03-06 01:50] LABS: Estmated Average Glucose 97
[2023-03-06 01:55] LABS: Creatine Phosphokinase 1656 U/L (26-192)
--- NOTE | 2023-03-06 02:10 | ECG_ITS ---
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 Measurements Intervals [place] Rate: 85 P: 137 [place]: 139 QRS: 208 QRSD: 86 T: 96 QT: 342 QTc: 407 Interpretive Statements ECTOPIC ATRIAL RHYTHM RIGHT AXIS DEVIATION [QRS AXIS > 100] POSSIBLE ANTERIOR MYOCARDIAL INFARCTION , PROBABLY OLD [30 ms Q WAVE IN V3/V4, OR R < 0.2 mV IN V4] Compared to ECG 03/06/2023 00:40:06 Ectopic atrial rhythm now present Right-axis deviation now present Sinus rhythm no longer present Left ventricular hypertrophy no longer present ST (T wave) deviation no longer present Myocardial infarct finding still present Electronically Signed On 03-06-2023 14:22:43 CDT by Angel Casillas M.D. [id number]
[2023-03-06 02:45] LABS: Troponin(5th) Baseline 592 ng/L (0-10)
[2023-03-06] MEDS: vancomycin 1,000 MG in sodium chloride 0.9% 250 ML 250 MG IV (02:52)
--- NOTE | 2023-03-06 03:16 | PC.NURSE ---
Admission Note: Pt arrived to ICU 4 from ER @0057 03/06/23. Continuos cardiac monitoring initiated. Pt reports 0/10 pain at this time. Lower abdomen is firm, tender to the touch, and distended. Dr. Green aware. Pt is a poor historian, hx. membreno, no family @bedside. Room air, SpO2 93%. No skin issues noted @ this time.
[2023-03-06 04:11] LABS: Adenovirus Not Detected (NOT DETECT); Chlamydia Pneumoniae Not Detected (NOT DETECT); Coronavirus 229E,HKU1,NL63,OC4 Not Detected (NOT DETECT); Human Metapneumovirus Not Detected (NOT DETECT); Human Rhinovirus/Enterovirus Not Detected (NOT DETECT); Influenza A Not Detected (NOT DETECT); Influenza A H1 Not Detected (NOT DETECT); Influenza A H1-2009 Not Detected (NOT DETECT); Influenza A H3 Not Detected (NOT DETECT); Influenza B Not Detected (NOT DETECT); Mycoplasma Pneumoniae Not Detected (NOT DETECT); Parainfluenza Virus Type 1 Not Detected (NOT DETECT); Parainfluenza Virus Type 2 Not Detected (NOT DETECT); Parainfluenza Virus Type 3 Not Detected (NOT DETECT); Parainfluenza Virus Type 4 Not Detected (NOT DETECT); Respiratory Syncytial Virus A Not Detected (NOT DETECT); Respiratory Syncytial Virus B Not Detected (NOT DETECT); SARS-COV-2 Not Detected (NOT DETECT)
[2023-03-06] MEDS: piperacillin-tazobactam 3.375 GM in sodium chloride 0.9% (plus) 50 ML IV ×3 (04:22→18:50)
[2023-03-06 04:59] LABS: Troponin 5 2HR 665.6 ng/L (0-10); Troponin 5 2HR Delta 73.6 ABS# (0-10)
[2023-03-06] MEDS: ipratropium-albuterol 3 mL Neb INHALATION ×6 (05:19→23:32)
--- NOTE | 2023-03-06 05:27 | USCV_ITS ---
Paulina Kraus Age: 72 Gender: F : 1950 Exam Date: 03/06/2023 08:33 Ordering Phys: Tarik Green MD Technologist: Harrison Scott Exam Location: [facility] Indication: NSTEMI BP: 101 / 54 HR: 78 Rhythm: Sinus Technical Quality: Adequate MEASUREMENTS (Male / Female) Normal Values 2D ECHO LVOT Diameter 2.0 cm LV Ejection Fraction MOD 2C 63.7 % LV Ejection Fraction 2C AL 63.8 % LA Diameter 3.6 cm LA Width 3.0 cm LA Height 4.3 cm RA Width 3.7 cm RA Height 4.4 cm Aorta at Sinotubular Diameter 1.7 cm IVC Diameter 1.9 cm M-MODE Aortic Annulus Diameter 2.2 cm LA Ao Ratio MM 1.7 MV E Point Septal Separation 0.4 cm DOPPLER AV Peak Velocity 607.0 cm/s LVOT Peak Velocity 157.0 cm/s AV Area Cont Eq vti 0.7 cm squared AV Area Cont Eq pk 0.8 cm squared MV Peak Velocity 199.0 cm/s MV Area PHT 4.5 cm squared Mitral E to A Ratio 0.9 MV E' Velocity 59.0 cm/s Mitral E to MV E' Ratio 15.6 Mitral E to LV E' Lateral Ratio 16.0 Mitral E to LV E' Septal Ratio 15.4 TR Peak Velocity 455.3 cm/s TR Peak Gradient 82.9 mmHg TR Mean Velocity 323.0 cm/s TR Mean Gradient 47.2 mmHg TR Velocity Time Integral 119.8 cm Right Atrial Pressure 8.0 mmHg Pulmonary Artery Systolic Pressu 90.9 mmHg PV Peak Velocity 141.0 cm/s RV Acceleration Time 0.1 s RV Ejection Time 0.3 s RV AcT/ET 0.3 FINDINGS Left Ventricle Normal left ventricular size and systolic function, EF 69 %. Moderate hypokinesia of the apical septum. Grade I/IV diastolic dysfunction (abnormal relaxation filling pattern), normal to mildly elevated filling pressures. Right Ventricle The right ventricle is normal in size and function. Right Atrium The right atrium is normal in size. Left Atrium Mildly increased left atrial size. Mitral Valve Moderate mitral annular calcification. Aortic Valve Severe aortic valve stenosis, mean gradient 76.8 mmHg, HILDA 0.65 cm squared. Peak velocity of 6.07 m/s. Peak gradient of 158 mmHg and a mean gradient of 74 mmHg Tricuspid Valve Mild tricuspid valve regurgitation. Estimated pulmonary artery peak systolic pressure 91 mmHg Pulmonic Valve Trace pulmonary valve regurgitation. Pericardium No pericardial effusion. Aorta Normal ascending aorta dimension. IVC The inferior vena cava appears normal. CONCLUSIONS Normal left ventricular size and systolic function, EF 69 %. Moderate hypokinesia of the apical septum. Grade I/IV diastolic dysfunction (abnormal relaxation filling pattern), normal to mildly elevated filling pressures. Severe aortic valve stenosis, mean gradient 76.8 mmHg, HILDA 0.65 cm squared. Peak velocity of 6.07 m/s. Peak gradient of 158 mmHg and a mean gradient of 74 mmHg. Mildly increased left atrial size. Moderate mitral annular calcification. Mild tricuspid valve regurgitation. Severe pulmonary hypertension.Estimated pulmonary artery peak systolic pressure 91 mmHg. Trace pulmonary valve regurgitation. Compared to the study from 11/08/2021, exact comparison may be difficult because of the difference in technical quality. The aortic stenosis appears to be more severe. Development of severe pulmonary hypertension also is noted Dr Chante Lopez MD [facility] (Electronically Signed) Final Date: 07 Mar 2023 07:52 S
[2023-03-06] MEDS: heparin drip 25,000 UNIT/500 ML PREMIX 26 UNIT IV (05:46)
[2023-03-06] MEDS: heparin 5,000 unit/mL INJ 1 mL IV (05:47)
--- NOTE | 2023-03-06 06:30 | ECG_ITS ---
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 Measurements Intervals [place] Rate: 80 P: 47 [place]: 131 QRS: -20 QRSD: 87 T: 110 QT: 347 QTc: 403 Interpretive Statements SINUS RHYTHM LEFT VENTRICULAR HYPERTROPHY AND ST-T CHANGE [VOLTAGE CRITERIA PLUS ST/T ABNORMALITY] Compared to ECG 03/06/2023 02:10:40 Left ventricular hypertrophy now present ST (T wave) deviation now present Ectopic atrial rhythm no longer present Right-axis deviation no longer present Myocardial infarct finding no longer present Electronically Signed On 03-06-2023 14:24:31 CDT by Angel Casillas M.D. [id number]
[2023-03-06] MEDS: budesonide 0.5 mg/2 mL Neb INHALATION ×2 (07:41→20:37)
[2023-03-06 08:19] LABS: Lactic Sepsis W/Reflex 0.9 mmol/L (0.5-2.2)
[2023-03-06 08:29] LABS: Troponin 5 6HR 822.7 ng/L (0-10); Troponin 5 6HR Delta 230.7 ng/L (0-12)
--- NOTE | 2023-03-06 08:40 | PC.PHAR ---
pts daughter caprice [phone] verified pts medications
--- NOTE | 2023-03-06 09:23 | PC.OT ---
OT EVALUATION HELD THIS DATE DUE TO HIGH/ELEVATED TROPONIN LEVELS. WILL ATTEMPT AGAIN TOMORROW.
[2023-03-06 10:03] LABS: Basophils % 0.1 %; Hematocrit 33.5 % (37.0-47.0); Hemoglobin 10.7 g/dL (11.5-15.3); Lymphocytes # 1.2 10^3/uL (0.8-4.8); Lymphocytes % 5.4 %; Mean Corpuscular HGB Conc 31.9 g/dL (30.0-36.0); Mean Corpuscular Hemoglobin 31.4 pg (28.0-34.0); Mean Corpuscular Volume 98.2 fl (81-99); Mean Platelet Volume 10.1 fL (7.4-10.4); Monocytes # 1.7 10^3/uL (0.2-0.9); Monocytes % 7.7 %; Neutrophils # 19.09 10^3/uL (1.8-7.7); Neutrophils % 86.3 %; Nucleated Red Blood Cells % 0 %; Platelet Count 243 10^3/cmm (130-400); Red Blood Count 3.41 10^6/uL (4.1-5.3); Red Cell Distribution Width 13.2 % (12.1-15.1); White Blood Count 22.1 10^3/uL (4.0-10.0)
[2023-03-06] MEDS: aspirin 300 mg Supp PR (10:04)
[2023-03-06 10:17] LABS: Alanine Aminotransferase 19 U/L (0-33); Alkaline Phosphatase 99 U/L (35-105); Anion Gap 14.6 (5-19); Aspartate Amino Transferase 97 U/L (0-32); Blood Urea Nitrogen 14 mg/dL (8-23); Calcium 8.2 mg/dL (8.5-10.5); Carbon Dioxide 21 mmol/L (22-29); Chloride 105 mmol/L (98-107); Glucose 112 mg/dL (65-115); Iron 14 ug/dL (37-145); Osmolality Calculated 285 mOsm/kg (285-295); Percent Saturation 5.4 % (20-50); Potassium 3.6 mmol/L (3.5-5.1); Sodium 137 mmol/L (136-145); Total Bilirubin 0.5 mg/dL (0.15-1.2); Total Iron Binding Capacity 258 mcg/dl; Unsaturated Iron Binding 244 ug/dL (112-347)
[2023-03-06 10:32] LABS: Vitamin B12 203 pg/mL (232-1245)
[2023-03-06 11:38] LABS: Folate Level 6.2 ng/mL (4.8-37.3)
[2023-03-06 12:13] LABS: Partial Thromboplastin Time 160.6 SECONDS (23.9-36.7)
[2023-03-06 15:03] LABS: Partial Thromboplastin Time 35.1 SECONDS (23.9-36.7)
--- NOTE | 2023-03-06 15:23 | PM.CONSULT ---
Providers/Reason For Consult Consulting Physician/Specialty*: Dr. Jeet Butler, DO/General surgery Reason for Consult*: Incarcerated ventral hernia Attending Physician: Mark Cash MD Primary Care Provider: Gerald Cooper History of Present Illness History of Present Illness Paulina Kraus is a 72 year old female who presented to the hospital due to multiple falls. She has some dementia and is oriented x2 currently. HPI and review of systems are limited secondary to this. She was found to have a UTI. CT of the abdomen pelvis also revealed a ventral hernia containing small and large bowel with some fat stranding. She reports that she has had that hernia for many years and that it feels the same way it always feels. She does have some pain with palpation at the site that she says has been present for years. Denies any nausea or vomiting. She reports having a bowel movement yesterday. She does not remember what abdominal surgeries that she has had Review of Systems General: Reports: ROS unobtainable due to mental status Medications/Allergies Home Medications Medication Instructions Recorded Confirmed Last Taken Type albuterol sulfate 90 mcg/actuation 2 puff inhalation Q4H PRN 12/06/21 03/06/23 Unknown History aerosol inhaler (Ventolin HFA) Shortness Of Breath atorvastatin 20 mg tablet 20 mg PO BEDTIME 12/06/21 03/06/23 Unknown History famotidine 20 mg tablet 20 mg PO BID 12/06/21 03/06/23 Unknown History oxybutynin chloride 5 mg tablet 5 mg PO TID 12/06/21 03/06/23 Unknown History sennosides 8.6 mg-docusate sodium 1 tab-cap PO BID PRN Constipation 12/06/21 03/06/23 Unknown History 50 mg tablet (Stimulant Laxative Plus) venlafaxine 75 mg capsule,extended 75 mg PO QAM 12/06/21 03/06/23 Unknown History release 24 hr donepezil 10 mg tablet 10 mg PO BEDTIME 03/06/23 03/06/23 Unknown History levothyroxine 125 mcg tablet 125 mcg PO QAM 03/06/23 03/06/23 Unknown History risperidone 0.25 mg tablet 0.25 mg PO BID 03/06/23 03/06/23 Unknown History Allergies Allergy/AdvReac Type Severity Reaction Status Date / Time Latex, Natural Rubber Allergy Unknown unknown Verified 03/06/23 08:36 tomato Allergy Unknown unknown Verified 03/06/23 08:36 Current Medications Generic Name Dose Route Start Last Admin Trade Name Freq PRN Reason Stop Dose Admin Albuterol/Ipratropium 3 ml 03/06/23 04:00 03/06/23 11:24 Ipratropium-Albuterol 3 Ml Neb INHALATION 3 ml Q4H.RESPIRATORY VELIA Administration Aspirin 300 mg 03/06/23 09:25 03/06/23 10:04 Aspirin 300 Mg Supp NM 300 mg DAILY VELIA Administration Budesonide 0.5 mg 03/06/23 08:00 03/06/23 07:41 Budesonide 0.5 Mg/2 Ml Neb INHALATION 0.5 mg BID.RESPIRATORY VELIA Administration Heparin Sodium (Porcine) 0 unit 03/06/23 05:27 03/06/23 05:47 Heparin 5,000 Unit/Ml Inj 1 Ml IV 4,600 unit PRN PRN Administration Heparin weight-base protocol Protocol Piperacillin Sod/Tazobactam 50 mls @ 12.5 mls/hr 03/06/23 03:30 03/06/23 15:23 Sod 3.375 gm/ Sodium Chloride IV Infused Q8H VELIA Infusion Protocol Sodium Chloride 1,000 mls @ 75 mls/hr 03/06/23 01:03 03/06/23 13:35 Sodium Chloride 0.9% IV 75 mls/hr .Q12Q00Y VELIA Administration Vancomycin HCl 1,000 mg/ 250 mls @ 250 mls/hr 03/06/23 02:00 03/06/23 03:59 Sodium Chloride IV Infused Q24H VELIA Infusion Heparin Sodium/Sodium Chloride 25,000 unit in 500 mls @ 0 mls/hr 03/06/23 05:30 03/06/23 12:30 Heparin Drip IV 0 unit/kg/hr .Q0M VELIA 0 mls/hr Titration Protocol Per Protocol PFSH Acute PFSH: Medical History (Updated 03/06/23 @ 15:27 by Jeet Butler DO) Bowel obstruction COPD (chronic obstructive pulmonary disease) Dyslipidemia GERD (gastroesophageal reflux disease) Hernia Hypothyroidism Ovarian cancer Surgical History H/O: hysterectomy Social History Smoking and tobacco status: current every day smoker Vitals/I&O/Wt Last Vital Signs Temp 98.2 F 03/06/23 05:00 Pulse 71 03/06/23 12:00 Resp 16 03/06/23 11:20 BP 90/42 03/06/23 12:00 Pulse Ox 94 03/06/23 12:00 O2 Del Method Room Air 03/06/23 11:20 03/06/23 03/06/23 03/06/23 06:59 14:59 22:59 Intake Total 1300 / 1300 1136.317 / 1136.317 50 / 1186.317 Balance 1300 / 1300 1136.317 / 1136.317 50 / 1186.317 Weight last 48 hrs Weight 201 lb 11.2 oz Weight 195 lb Physical Exam Narrative: General : Patient is well developed , no acute distress, oriented x2, Not to time Head : Normal cephalic, a-traumatic. Ears : Pinnae and external canal are normal. Hearing is normal. Eyes : PERRLA, Sclera and injection are normal. No conjunctival discharge. Nose : Mucous membranes are without erythema. Throat : buccal mucosa is normal, gums are without significant recession or hypertrophy. Lungs : Equal chest rise bilaterally, no use of accessory muscles, trachea is midline. Cor : Rate and rhythm are normal. Abdomen : Soft, ND, tender to palpation over a reducible incisional hernia, no g/r/m Extremities : No edema, no cyanosis or clubbing, dorsalis pedis pulses are present bilaterally, non-tender to palpation of calves. Upper extremities are normal bilaterally. Back : non-tender to palpation, no CVA tenderness. Neuro : CN II - XII intact, Upper and lower extremities have equal and full strength Urinary Catheter Management: Thompson: Cath Placed During This Visit: yes Urinary Catheter Date of Insertion: 03/06/23 Urinary Catheter Time of Insertion: 11:16 Data 03/06/23 09:49 03/06/23 09:49 Micro: Microbiology 03/06/23 02:15 MRSA Culture - Final Nose 03/05/23 22:16 Blood Culture - Preliminary Blood SPECIMEN COLLECTED 03/05/23 22:13 Blood Culture - Preliminary Blood SPECIMEN COLLECTED A&P Assessment and plan (1) Incisional hernia without obstruction or gangrene: Plan I was able to somewhat easily reduce the hernia at bedside. She says this is chronic and not causing her any new symptoms. She also has very elevated troponins. Fixing this hernia, especially at this time, is very high risk. Recommend conservative management for now. No acute surgical intervention Clear liquid diet Medical management per hospitalist Coding Level of Care Code Acute Code for Chg Fwd Diagnoses Incisional hernia without obstruction or gangrene K43.2
--- NOTE | 2023-03-06 17:00 | P.CONIM_ITS ---
Providers/Reason For Consult Consulting Physician/Specialty*: CIERA Lopez MD/cardiology Reason for Consult*: Patient with a severe aortic valve stenosis, presenting with non-ST elevation myocardial infarction Requesting Physician: Dr. Cash Attending Physician: Mark Cash MD Primary Care Provider: Gerald Cooper History of Present Illness History of Present Illness Paulina Kraus is a 72 year old female is admitted to the hospital through the emergency room, where she presented with complaints of altered mental status, generalized body aches. Patient is known to have severe aortic valve stenosis. She was found to have elevated troponin T with a significant delta. Cardiology consult is requested for further cardiac evaluation recommendations. This patient is known to have dementia. Most of the information is from her daughter and also with the medical records. Her daughter has the power of admitted attorneys. Yesterday the patient had a fall at home. Since then, she was complaining of generalized body aches. She also was found to be more confused than usual. According to daughter, the patient requested the family to take her to the hospital. She did not have any unusual shortness of breath, fever, chills or cough. She has a baseline cough off and on. No orthopnea PND. In the hospital, she was complaining of abdominal pain. She was found to have features of partial bowel obstruction. This is being managed conservatively. She was evaluated by Dr. Narayanan in the past for the aortic valve stenosis. TAVR was recommended. Apparently the patient and family have decided not to undergo this procedure. She also is known to have chronic kidney disease, hypertension, dyslipidemia, degenerative joint disease, hypothyroidism. She was found to have a baseline troponin T of 530 with a 2-hour delta of 73 and a 6-hour delta of 232. She denies any chest pain at this point. She has some shortness of breath. Also has a productive cough. Currently is complaining of pain in the umbilical region. No other specific complaints. Review of Systems Narrative: CONSTITUTIONAL: No fever or chills. EYES: No blurring of vision or other visual disturbances lately. ENT: No hoarseness of voice, auditory disturbances or sore throat. CARDIOVASCULAR: As mentioned above. RESPIRATORY: Has some cough and shortness of breath GASTROINTESTINAL: No hematemesis or melena. GENITOURINARY: N abdominal pain as mentioned above INTEGUMENTARY: No skin rashes or history of skin cancer. NEURO: Dementia as mentioned above PSYCHIATRIC: No history of psychosis or major depression. HEMATOLOGIC: No bleeding disorders or significant anemia. ENDOCRINE: History of hypothyroidism MUSCULOSKELETAL: No recent joint pain or swelling. ALLERGY/IMMUNOLOGY: As mentioned above. Medications/Allergies Home Medications Medication Instructions Recorded Confirmed Last Taken Type albuterol sulfate 90 mcg/actuation 2 puff inhalation Q4H PRN 12/06/21 03/06/23 Unknown History aerosol inhaler (Ventolin HFA) Shortness Of Breath atorvastatin 20 mg tablet 20 mg PO BEDTIME 12/06/21 03/06/23 Unknown History famotidine 20 mg tablet 20 mg PO BID 12/06/21 03/06/23 Unknown History oxybutynin chloride 5 mg tablet 5 mg PO TID 12/06/21 03/06/23 Unknown History sennosides 8.6 mg-docusate sodium 1 tab-cap PO BID PRN Constipation 12/06/21 03/06/23 Unknown History 50 mg tablet (Stimulant Laxative Plus) venlafaxine 75 mg capsule,extended 75 mg PO QAM 12/06/21 03/06/23 Unknown History release 24 hr donepezil 10 mg tablet 10 mg PO BEDTIME 03/06/23 03/06/23 Unknown History levothyroxine 125 mcg tablet 125 mcg PO QAM 03/06/23 03/06/23 Unknown History risperidone 0.25 mg tablet 0.25 mg PO BID 03/06/23 03/06/23 Unknown History Allergies Allergy/AdvReac Type Severity Reaction Status Date / Time Latex, Natural Rubber Allergy Unknown unknown Verified 03/06/23 08:36 tomato Allergy Unknown unknown Verified 03/06/23 08:36 Current Medications Generic Name Dose Route Start Last Admin Trade Name Freq PRN Reason Stop Dose Admin Albuterol/Ipratropium 3 ml 03/06/23 04:00 03/06/23 15:30 Ipratropium-Albuterol 3 Ml Neb INHALATION 3 ml Q4H.RESPIRATORY VELIA Administration Aspirin 300 mg 03/06/23 09:25 03/06/23 10:04 Aspirin 300 Mg Supp [place] 300 mg DAILY VELIA Administration Budesonide 0.5 mg 03/06/23 08:00 03/06/23 07:41 Budesonide 0.5 Mg/2 Ml Neb INHALATION 0.5 mg BID.RESPIRATORY VELIA Administration Heparin Sodium (Porcine) 0 unit 03/06/23 05:27 03/06/23 05:47 Heparin 5,000 Unit/Ml Inj 1 Ml IV 4,600 unit PRN PRN Administration Heparin weight-base protocol Protocol Piperacillin Sod/Tazobactam 50 mls @ 12.5 mls/hr 03/06/23 03:30 03/06/23 15:23 Sod 3.375 gm/ Sodium Chloride IV Infused Q8H VELIA Infusion Protocol Sodium Chloride 1,000 mls @ 75 mls/hr 03/06/23 01:03 03/06/23 13:35 Sodium Chloride 0.9% IV 75 mls/hr .[id number] VELIA Administration Vancomycin HCl 1,000 mg/ 250 mls @ 250 mls/hr 03/06/23 02:00 03/06/23 03:59 Sodium Chloride IV Infused Q24H VELIA Infusion Heparin Sodium/Sodium Chloride 25,000 unit in 500 mls @ 0 mls/hr 03/06/23 05:30 03/06/23 12:30 Heparin Drip IV 0 unit/kg/hr .Q0M VELIA 0 mls/hr Titration Protocol Per Protocol PFSH Acute PFSH: Medical History DINA (acute kidney injury) Bowel obstruction COPD (chronic obstructive pulmonary disease) Dyslipidemia GERD (gastroesophageal reflux disease) Hernia Hypothyroidism Ovarian cancer Surgical History H/O: hysterectomy Social History Smoking and tobacco status: current every day smoker Vitals/I&O/Wt Last Vital Signs Temp 98.2 F 03/06/23 05:00 Pulse 87 03/06/23 16:00 Resp 24 H 03/06/23 16:00 BP 122/57 03/06/23 16:00 Pulse Ox 96 03/06/23 16:00 O2 Del Method Room Air 03/06/23 15:30 03/06/23 03/06/23 03/06/23 06:59 14:59 22:59 Intake Total 1300 / 1300 1136.317 / 1136.317 50 / 1186.317 Balance 1300 / 1300 1136.317 / 1136.317 50 / 1186.317 Weight last 48 hrs Weight 201 lb 11.2 oz Weight 195 lb Physical Exam Narrative: GENERAL: The patient is alert and oriented times three. Not in any acute distress. HEENT: No significant pallor, icterus or lymphadenopathy.Oral cavity: There are no mucous membrane lesions. NECK: Trachea appears to be central. No masses noted. No JVD or thyromegaly appreciated. RESPIRATORY: Chest is symmetrical. No intercostals muscle retraction or any accessory muscle activation. There is no chest wall tenderness. Breath sounds are heard bilaterally. No rales or rhonchi heard. No evidence of any consolidation. BREASTS: Deferred. HEART: The first heart sound is muffled. Ejection systolic murmur grade 4/6 in the aortic area. No diastolic murmurs. No S3 or S4. No pericardial rub ABDOMEN: No vessel pulsations or distention. No tenderness. No organomegaly appreciated. Bowel sounds are normally heard. : Deferred. RECTAL: Deferred. LYMPHATIC: No lymphadenopathy noted in the neck. EXTREMITIES: 1+ edema. The peripheral pulses are weak bilaterally. No edema or cyanosis. No clubbing. MUSCULOSKELETAL: No acute joint deformities or swelling SKIN: There are no significant rashes or ecchymosis NEUROPSYCHIATRIC: No focal motor deficits. Urinary Catheter Management: Thompson: Cath Placed During This Visit: yes Urinary Catheter Date of Insertion: 03/06/23 Urinary Catheter Time of Insertion: 11:16 Data 03/07/23 03:52 03/07/23 03:52 Other Labs: Laboratory Last Values WBC 22.1 10^3/uL (4.0-10.0) H 03/06/23 09:49 RBC 3.41 10^6/uL (4.1-5.3) L 03/06/23 09:49 Hgb 10.7 g/dL (11.5-15.3) L 03/06/23 09:49 Hct 33.5 % (37.0-47.0) L 03/06/23 09:49 MCV 98.2 fl (81-99) 03/06/23 09:49 MCH 31.4 pg (28.0-34.0) 03/06/23 09:49 MCHC 31.9 g/dL (30.0-36.0) 03/06/23 09:49 RDW 13.2 % (12.1-15.1) 03/06/23 09:49 Plt Count 243 10^3/cmm (130-400) 03/06/23 09:49 MPV 10.1 fL (7.4-10.4) 03/06/23 09:49 Neut % (Auto) 86.3 % 03/06/23 09:49 Lymph % (Auto) 5.4 % 03/06/23 09:49 [place] % (Auto) 7.7 % 03/06/23 09:49 Eos % (Auto) 0.0 % 03/06/23 09:49 Baso % (Auto) 0.1 % 03/06/23 09:49 Neut # (Auto) 19.09 10^3/uL (1.8-7.7) H 03/06/23 09:49 Lymph # (Auto) 1.2 10^3/uL (0.8-4.8) 03/06/23 09:49 [place] # (Auto) 1.7 10^3/uL (0.2-0.9) H 03/06/23 09:49 Eos # (Auto) 0.0 10^3/uL (0.0-0.8) 03/06/23 09:49 Baso # (Auto) 0.0 10^3/uL (0.0-0.1) 03/06/23 09:49 Nucleated RBC % (auto) 0 % 03/06/23 09:49 Nucleated RBCs # 0.0 /100WBC 03/06/23 09:49 APTT 35.1 SECONDS (23.9-36.7) D 03/06/23 14:30 Sodium 137 mmol/L (136-145) 03/06/23 09:49 Potassium 3.6 mmol/L (3.5-5.1) 03/06/23 09:49 Chloride 105 mmol/L (98-107) 03/06/23 09:49 Carbon Dioxide 21 mmol/L (22-29) L 03/06/23 09:49 Anion Gap 14.6 (5-19) 03/06/23 09:49 BUN 14 mg/dL (8-23) 03/06/23 09:49 Creatinine 0.6 mg/dL (0.5-0.9) 03/06/23 09:49 GFR Calculation Not Reportable 03/06/23 09:49 Glucose 112 mg/dL (65-115) 03/06/23 09:49 Estimat Average Glucose 97 03/05/23 20:05 Hemoglobin A1c 5.0 % (4.0-6.0) 03/05/23 20:05 Calculated Osmolality 285 mOsm/kg (285-295) 03/06/23 09:49 Lactic Acid 0.9 mmol/L (0.5-2.2) 03/06/23 07:14 Calcium 8.2 mg/dL (8.5-10.5) L 03/06/23 09:49 Iron 14 ug/dL (37-145) L 03/06/23 09:49 TIBC 258 mcg/dl 03/06/23 09:49 % Saturation 5.4 % (20-50) L 03/06/23 09:49 Unsat Iron Binding 244 ug/dL (112-347) 03/06/23 09:49 Total Bilirubin 0.5 mg/dL (0.15-1.2) 03/06/23 09:49 AST 97 U/L (0-32) H 03/06/23 09:49 ALT 19 U/L (0-33) 03/06/23 09:49 Alkaline Phosphatase 99 U/L (35-105) 03/06/23 09:49 Creatine Kinase 1656 U/L (26-192) H* 03/05/23 22:13 Troponin T Baseline 592 ng/L (0-10) H* 03/06/23 01:34 Troponin T 120 Minute 665.6 ng/L (0-10) H 03/06/23 03:34 Delta Troponin T 73.6 ABS# (0-10) H* 03/06/23 03:34 Troponin T Hi Sens 6Hr 822.7 ng/L (0-10) H 03/06/23 07:14 Troponin T Hi Sens 6Hr Delta 230.7 ng/L (0-12) H* 03/06/23 07:14 C-Reactive Protein 56.2 mg/L (0.0-4.9) H 03/05/23 22:13 NT-Pro-B Natriuret Pep 1815 pg/mL (0-125) H 03/05/23 22:13 Total Protein 6.0 g/dL (6.6-8.7) L 03/06/23 09:49 Albumin 3.0 g/dL (3.5-5.2) L 03/06/23 09:49 Globulin 3.0 g/dL (1.3-4.6) 03/06/23 09:49 Triglycerides 72 mg/dL (0-150) 03/05/23 22:13 Cholesterol 120 mg/dL (0-200) 03/05/23 22:13 LDL Cholesterol, Calc 63 mg/dL (50-129) 03/05/23 22:13 HDL Cholesterol 43 mg/dL (60-100) L 03/05/23 22:13 LDL/HDL Ratio 1.47 RATIO (0.00-3.22) 03/05/23 22:13 Cholesterol/HDL Ratio 2.79 mg/dL (0.0-4.40) 03/05/23 22:13 Vitamin B12 203 pg/mL (232-1245) L 03/06/23 09:49 Folate 6.2 ng/mL (4.8-37.3) 03/06/23 09:49 Procalcitonin 1.15 ng/mL (0-0.5) H 03/05/23 22:13 TSH 0.73 uIU/mL (0.27-4.20) 03/05/23 22:13 Urine Color Yellow (Yellow) 03/05/23 21:11 Urine Appearance Sl hazy (CLEAR) A 03/05/23 21:11 Urine pH 5 (5-7) 03/05/23 21:11 Ur Specific [place] 1.020 (1.005-1.030) 03/05/23 21:11 Urine Protein Trace (Negative) 03/05/23 21:11 Urine Glucose (UA) Norm (Normal) 03/05/23 21:11 Urine Ketones Negative (Negative) 03/05/23 21:11 Urine Blood 2+ (Negative) H 03/05/23 21:11 Urine Nitrate Positive (Negative) H 03/05/23 21:11 Urine Bilirubin Neg (Negative) 03/05/23 21:11 Urine Urobilinogen Neg mg/dL (Negative) 03/05/23 21:11 Ur Leukocyte Esterase Negative (Negative) 03/05/23 21:11 Urine RBC 0-4 /hpf (0-2) H 03/05/23 21:11 Urine WBC 5-10 /hpf (0-5) H 03/05/23 21:11 Ur Squamous Epith Cells 0-4 /hpf (0-5) H 03/05/23 21:11 Amorphous Sediment Not Reportable 03/05/23 21:11 Urine Bacteria 4+ /hpf (NONE) H 03/05/23 21:11 Nasal Influ A H1 2009 PCR Not detected (NOT DETECT) 03/06/23 02:15 Adenovirus (PCR) Not detected (NOT DETECT) 03/06/23 02:15 C. pneumoniae DNA (PCR) Not detected (NOT DETECT) 03/06/23 02:15 Coronavirus 229E (PCR) Not detected (NOT DETECT) 03/06/23 02:15 Human Metapneumovir PCR Not detected (NOT DETECT) 03/06/23 02:15 Influenza A (H1) PCR Not detected (NOT DETECT) 03/06/23 02:15 Influenza A (H3) PCR Not detected (NOT DETECT) 03/06/23 02:15 Influenza Type A (PCR) Not detected (NOT DETECT) 03/06/23 02:15 Influenza Type B (PCR) Not detected (NOT DETECT) 03/06/23 02:15 M. pneumoniae (PCR) Not detected (NOT DETECT) 03/06/23 02:15 Parainfluenza 1 (PCR) Not detected (NOT DETECT) 03/06/23 02:15 Parainfluenza 2 (PCR) Not detected (NOT DETECT) 03/06/23 02:15 Parainfluenza 3 (PCR) Not detected (NOT DETECT) 03/06/23 02:15 Parainfluenza 4 (PCR) Not detected (NOT DETECT) 03/06/23 02:15 RSV Type A (PCR) Not detected (NOT DETECT) 03/06/23 02:15 RSV Type B (PCR) Not detected (NOT DETECT) 03/06/23 02:15 Entero/Rhino (PCR) Not detected (NOT DETECT) 03/06/23 02:15 SARS-CoV-2 (PCR) Not detected (NOT DETECT) 03/06/23 02:15 Micro: Microbiology 03/06/23 02:15 MRSA Culture - Final Nose 03/05/23 22:16 Blood Culture - Preliminary Blood SPECIMEN COLLECTED 03/05/23 22:13 Blood Culture - Preliminary Blood SPECIMEN COLLECTED EKG 1: My Interpretation: Normal sinus rhythm. Poor R wave progression. Diffuse nonspecific ST-T changes. Features of LVH. Left axis deviation. Other data: TTE (11/08/2021) CONCLUSIONS ?1. Normal left ventricular cavity size and systolic function. ?Moderate concentric left ventricular hypertrophy.? Left ?ventricular ejection fraction is estimated at 70 %. No regional ?wall motion abnormalities. Grade I diastolic dysfunction ?(abnormal relaxation filling pattern), normal to mildly elevated?filling pressures. ?2. Severe aortic valve stenosis, pweak velocity 4.8 m/s, peak?gradient 93 mm Hg, mean gradient 44 mmHg, HILDA 0.81 cm squared. ?3. No prior similar studies to compare. A&P Assessment and plan (1) Acute non-ST elevation myocardial infarction (NSTEMI): Patient may be treated with heparin, beta-emery, aspirin, Plavix, statin and other symptomatic measures. For further evaluation of the patient's coronary status, she requires a cardiac catheterization. (2) Severe aortic valve stenosis: The patient and the family consistently declined any intervention for the aortic stenosis. Patient does not want to go for TAVR or open procedure. Repeat echo to reevaluate the dysfunction and to relative the pathology. (3) Dyslipidemia: May continue on the current medications (4) Hypothyroidism: Continue on the current medications (5) Dementia: Mild (6) Abdominal pain: Management as per the general surgery Plan Even though the patient and the family does not want to undergo any aortic valve intervention, they would like to go ahead with the cardiac catheterization to see if she has any fixable coronary lesions. There seems understand the risk of doing coronary intervention in presence of severe aortic valve stenosis. Once the patient's abdominal pain is resolved, we may go ahead with the coronary angiogram and possible intervention. The risk of bleeding, hematoma, vascular injury, myocardial infarction, myocardial perforation, malignant cardiac arrhythmias ,CVA, renal failure and other concomitant complications were explained in detail. In view of the history of kidney injury, patient carries a high risk for contrast-induced nephropathy. The family understand this well. Based on the results of the above tests and the patient's clinical progress, further recommendations will be made. Thank you for the opportunity to evaluate this patient and make these recommendations Consult Attestations Medical Necessity Statement: Patient requires continued hospital stay for close monitoring and further man agement Coding Level of Care Code 13044 Diagnoses Acute non-ST elevation myocardial infarction (NSTEMI) I21.4 Severe aortic valve stenosis I35.0 Dyslipidemia E78.5 Hypothyroidism E03.9 Dementia F03.90 Abdominal pain R10.9 Time Spent (min) 70
--- NOTE | 2023-03-06 18:34 | W.PM.EVENTAC ---
Event Note Event Note: Admitted overnight. H&P and labs appreciated. Examination Patient lying comfortably in bed. Denies any nausea, vomiting, headache. Alert to time, place, self but not to why she is in the hospital. Denies any abdominal pain. Not sure when she had last bowel movement. Thinks she had a last bowel movement yesterday. Passing flatus. Denies any chest pain or difficulty breathing. Has remained hemodynamically stable on room air. Plan: Incarcerated hernia with partial small bowel obstruction: Appreciate surgical recommendations. No OR for now. Start on clear liquid diet. For now continue with vancomycin and Zosyn. Follow-up blood culture and urine culture. Discontinue vancomycin if MRSA negative. Non-ST elevation FL: Delta troponin of more than 230. Continue with heparin drip. Appreciate A1c, lipid panel. Aspirin 81 mg oral daily. Normal saline at 75 cc/h. Consult cardiology. Follow echocardiogram. Most likely patient will need further ACS work-up with cardiac angiogram versus Lexiscan stress test. Patient does have history of aortic stenosis: Family in past had refused TAVR. Concern for pneumonia: Follow-up sputum culture. Pneumonia less likely as patient is on room air. Check respiratory viral panel. Already on antibiotics. Start on levothyroxine at home dose. Can start other chronic medications now when patient can take oral medications. Care discussed in detail with patient and patient's daughter at bedside. All the questions were answered. For now patient is agreeable for cardiac catheterization. Event Notes Attestations Time Spent in Patient Care: Greater than 35 minutes Other Coding Information Prolonged care (total time indicated above or notated here) (Discussing care with cardiology given non-ST elevation FL. Discussing care plan today with multiple family members and patient. Monitor hemodynamics.)
[2023-03-06] MEDS: donepezil 5 MG Tablet 10 MG PO (20:29)
[2023-03-06] MEDS: oxybutynin 5 mg Tablet PO (20:29)
[2023-03-06] MEDS: atorvastatin 40 mg Tablet 20 MG PO (20:29)
[2023-03-06] MEDS: cyanocobalamin 1,000 mcg/mL SDV 1000 MCG IM (20:33)
[2023-03-06 22:33] LABS: Partial Thromboplastin Time 79.4 SECONDS (23.9-36.7)
[2023-03-07] VITALS (17 sets, daily range): BP systolic 92–103; BP diastolic 47–65; PULSE 86–99; RESP 16–33; TEMP 36.9–38.5; O2SAT 91–98
[2023-03-07] MEDS: sodium chloride 0.9% 1,000 ML 75 ML IV (03:15)
[2023-03-07] MEDS: piperacillin-tazobactam 3.375 GM in sodium chloride 0.9% (plus) 50 ML IV ×2 (03:43→13:32)
[2023-03-07] MEDS: ipratropium-albuterol 3 mL Neb INHALATION ×3 (03:59→15:23)
[2023-03-07 04:53] LABS: Basophils # 0.1 10^3/uL (0.0-0.1); Basophils % 0.3 %; Hematocrit 32.5 % (37.0-47.0); Hemoglobin 10.4 g/dL (11.5-15.3); Lymphocytes # 1.4 10^3/uL (0.8-4.8); Lymphocytes % 7.3 %; Mean Corpuscular Hemoglobin 31.8 pg (28.0-34.0); Mean Corpuscular Volume 99.4 fl (81-99); Mean Platelet Volume 10.8 fL (7.4-10.4); Monocytes # 1.5 10^3/uL (0.2-0.9); Monocytes % 7.7 %; Neutrophils # 16.15 10^3/uL (1.8-7.7); Neutrophils % 83.8 %; Nucleated Red Blood Cells % 0 %; Platelet Count 241 10^3/cmm (130-400); Red Blood Count 3.27 10^6/uL (4.1-5.3); Red Cell Distribution Width 13.4 % (12.1-15.1); White Blood Count 19.3 10^3/uL (4.0-10.0)
[2023-03-07 05:04] LABS: Partial Thromboplastin Time 67.8 SECONDS (23.9-36.7)
[2023-03-07 05:06] LABS: Alanine Aminotransferase 20 U/L (0-33); Albumin Level 2.9 g/dL (3.5-5.2); Alkaline Phosphatase 86 U/L (35-105); Anion Gap 14.2 (5-19); Aspartate Amino Transferase 78 U/L (0-32); Blood Urea Nitrogen 13 mg/dL (8-23); Calcium 7.5 mg/dL (8.5-10.5); Carbon Dioxide 22 mmol/L (22-29); Chloride 106 mmol/L (98-107); Globulin 2.8 g/dL (1.3-4.6); Glucose 92 mg/dL (65-115); Osmolality Calculated 288 mOsm/kg (285-295); Potassium 3.2 mmol/L (3.5-5.1); Sodium 139 mmol/L (136-145); Total Bilirubin 0.5 mg/dL (0.15-1.2); Total Protein 5.7 g/dL (6.6-8.7)
[2023-03-07] MEDS: heparin drip 25,000 UNIT/500 ML PREMIX 24 UNIT IV (05:08)
[2023-03-07] MEDS: venlafaxine ER (24HR) 75 mg Capsule PO (05:45)
[2023-03-07] MEDS: levothyroxine 125 mcg Tablet PO (05:45)
[2023-03-07] MEDS: acetaminophen 325 mg Tablet 650 MG PO (05:45)
[2023-03-07] MEDS: budesonide 0.5 mg/2 mL Neb INHALATION (09:07)
--- NOTE | 2023-03-07 09:39 | XR_ITS ---
WS: [id number] XR acute abdomen series [id number] REASON FOR EXAM: partial sbo FINDINGS: Dilated right, transverse, and left colon. There is a large focal dilated bowel loop (colon) extendin g beyond the peritoneal cavity congruent with the strangulated obstructing ventral hernia demonstrate d on the CT scan of the prior day. No free air identified. XR/XR acute abdomen series [id number] IMPRESSION: Ventral hernia with colon obstruction as above.
[2023-03-07] MEDS: oxybutynin 5 mg Tablet PO (09:51)
[2023-03-07] MEDS: potassium chloride ER 20 mEq Tablet 40 MEQ PO (09:51)
[2023-03-07] MEDS: cyanocobalamin 1,000 mcg Tablet 1000 MCG PO (09:51)
[2023-03-07] MEDS: risperiDONE 0.25 mg Tablet PO (09:51)
[2023-03-07] MEDS: aspirin 81 mg EC Tablet PO (09:51)
--- NOTE | 2023-03-07 12:04 | PC.NURSE ---
Patient came to [facility] from the med surg floor. She is currently sitting in a wheelchair.
--- NOTE | 2023-03-07 12:44 | PM.PN ---
Subjective Subjective: The patient seems to be doing okay. She has a baseline shortness of breath with activities. She has occasional audible expiratory wheezing. Had a repeat echocardiogram which revealed worsening of the aortic valve stenosis and severe pulmonary hypertension with an estimated pulmonary artery peak systolic pressure of 90 mmHg. Medications: Medication Review Details: Current Medications Acetaminophen (Acetaminophen 325 Mg Tablet) 650 mg PO Q6H PRN PRN Reason: Mild/Mod Pain Or Temp >/= 101 Last Admin: 03/07/23 05:45 Dose: 650 mg Albuterol/Ipratropium (Ipratropium-Albuterol 3 Ml Neb) 3 ml INHALATION Q4H.RESPIRATORY VELIA Last Admin: 03/07/23 11:46 Dose: Not Given Aspirin (Aspirin 81 Mg Ec Tablet) 81 mg PO DAILY VELIA Last Admin: 03/07/23 09:51 Dose: 81 mg Atorvastatin Calcium (Atorvastatin 40 Mg Tablet) 20 mg PO BEDTIME VELIA Last Admin: 03/06/23 20:29 Dose: 20 mg Budesonide (Budesonide 0.5 Mg/2 Ml Neb) 0.5 mg INHALATION BID.RESPIRATORY VELIA Last Admin: 03/07/23 09:07 Dose: 0.5 mg Cyanocobalamin (Cyanocobalamin 1,000 Mcg Tablet) 1,000 mcg PO DAILY VELIA Last Admin: 03/07/23 09:51 Dose: 1,000 mcg Denture Adhesive (Fixodent 39 Gm Tube) 1 applic DENTAL PRN PRN PRN Reason: denture adhesive Donepezil HCl (Donepezil 5 Mg Tablet) 10 mg PO BEDTIME VELIA Last Admin: 03/06/23 20:29 Dose: 10 mg Ferrous Gluconate (Ferrous Gluconate 324 Mg Tablet) 324 mg PO BIDWM [facility] Heparin Sodium (Porcine) (Heparin 5,000 Unit/Ml Inj 1 Ml) 0 unit IV PRN PRN; Protocol PRN Reason: Heparin weight-base protocol Last Admin: 03/06/23 05:47 Dose: 4,600 unit Piperacillin Sod/Tazobactam (Sod 3.375 gm/ Sodium Chloride) 50 mls @ 12.5 mls/hr IV Q8H VELIA; Protocol Last Infusion: 03/07/23 08:07 Dose: Infused Sodium Chloride (Sodium Chloride 0.9%) 1,000 mls @ 75 mls/hr IV .[id number] VELIA Last Admin: 03/07/23 03:15 Dose: 75 mls/hr Heparin Sodium/Sodium Chloride (Heparin Drip) 25,000 unit in 500 mls @ 0 mls/hr IV .Q0M [facility]; Protocol Last Admin: 03/07/23 05:08 Dose: 13.12 unit/kg/hr, 24 mls/hr Levothyroxine Sodium (Levothyroxine 125 Mcg Tablet) [facility] [place] Last Admin: 03/07/23 05:45 Dose: 125 mcg Ondansetron HCl (Ondansetron 2 Mg/Ml Sdv 2 Ml) 4 mg IVP Q8H PRN PRN Reason: vomiting, or N/V if npo Oxybutynin Chloride (Oxybutynin 5 Mg Tablet) 5 mg PO TID [facility] Last Admin: 03/07/23 09:51 Dose: 5 mg Risperidone (Risperidone 0.25 Mg Tablet) 0.25 mg PO BID [facility] Last Admin: 03/07/23 09:51 Dose: 0.25 mg Venlafaxine HCl (Venlafaxine Er (24hr) 75 Mg Capsule) 75 mg PO [facility] Last Admin: 03/07/23 05:45 Dose: 75 mg Vitals/I&O/Wt Last Vital Signs Temp 99.5 F 03/07/23 08:00 Pulse 94 03/07/23 09:10 Resp 18 03/07/23 09:10 BP 97/62 03/07/23 08:00 Pulse Ox 94 03/07/23 09:10 O2 Del Method Room Air 03/07/23 09:10 03/06/23 03/07/23 03/07/23 22:59 06:59 14:59 Intake Total 545.333 / 3483.873 8613.2 / 2836.850 290 / 290 Output Total 250 / 250 350 / 600 Balance 295.333 / 1431.650 805.2 / 2236.850 290 / 290 Weight last 48 hrs Weight 201 lb 11.2 oz Weight 195 lb Physical Exam Narrative: GENERAL: The patient is alert and oriented times three. Not in any acute distress. HEENT: No significant pallor, icterus or lymphadenopathy.Oral cavity: There are no mucous membrane lesions. NECK: Trachea appears to be central. No masses noted. No JVD or thyromegaly appreciated. RESPIRATORY: Chest is symmetrical. No intercostals muscle retraction or any accessory muscle activation. There is no chest wall tenderness. Breath sounds are heard bilaterally. No rales or rhonchi heard. No evidence of any consolidation. BREASTS: Deferred. HEART: The heart sounds are normal. No S3 or S4. Ejection systolic murmur grade 4/6 in the aortic area. No diastolic murmurs. No pericardial rub ABDOMEN: No vessel pulsations or distention. No tenderness. No organomegaly appreciated. Bowel sounds are normally heard. : Deferred. RECTAL: Deferred. LYMPHATIC: No lymphadenopathy noted in the neck. EXTREMITIES: 1+ edema of the lower extremities. MUSCULOSKELETAL: No acute joint deformities or swelling SKIN: There are no significant rashes or ecchymosis NEUROPSYCHIATRIC: The patient is alert and oriented x3. Appears to be in a good mood. No tremors or rigidity noted. Urinary Catheter Management: Thompson: Cath Placed During This Visit: yes Reason for Continuing Indwelling Catheter: Accurate Measurement of Urinary Output in Critically Ill Patients Urinary Catheter Date of Insertion: 03/06/23 Urinary Catheter Time of Insertion: 11:16 Data 03/07/23 03:52 03/07/23 03:52 Micro: Microbiology 03/05/23 21:11 Urine Culture - Preliminary Urine,Clean Catch Gram Negative Rods 03/05/23 22:16 Blood Culture - Preliminary Blood NEGATIVE TO DATE 03/05/23 22:13 Blood Culture - Preliminary Blood NEGATIVE TO DATE 03/06/23 02:15 MRSA Culture - Final Nose A&P Assessment and plan (1) Acute non-ST elevation myocardial infarction (NSTEMI): Patient may be treated with heparin, beta-emery, aspirin, Plavix, statin and other symptomatic measures. For further evaluation of the patient's coronary status, she requires a cardiac catheterization. (2) Severe aortic valve stenosis: The patient and the family consistently declined any intervention for the aortic stenosis. Patient does not want to go for TAVR or open procedure. The repeat echocardiogram revealed worsening of the aortic valve stenosis. The gradient across the aortic valve has significantly increased. She also has severe pulmonary hypertension with a PA pressure in the 90s. Based on this, the patient's overall prognosis is poor. (3) Dyslipidemia: May continue on the current medications (4) Hypothyroidism: Continue on the current medications (5) Dementia: Management as per the primary. (6) Abdominal pain: Management as per the general surgery Plan Today most of the family was in her room. Once again I discussed with the patient's condition and the treatment options with the family in detail. All the children present at that time were unanimously for the coronary angiogram. The risk and benefits were once again discussed. They understood this well and consented to proceed. Tomorrow since I will be off, I endorsed this patient to Dr. Casillas. Based on the patient's status tomorrow, the timing of the angiogram will be decided. Attestations Medical Necessity Statement*: Patient requires continued hospital stay for close monitoring and further management Coding Level of Care Code 14612 Diagnoses Acute non-ST elevation myocardial infarction (NSTEMI) I21.4 Severe aortic valve stenosis I35.0 Dyslipidemia E78.5 Hypothyroidism E03.9 Dementia F03.90 Abdominal pain R10.9
--- NOTE | 2023-03-07 14:53 | PM.MISC ---
Miscellaneous Note Note: Dr. Lopez asked me to see this patient for purposes of performing coronary angiography tomorrow. She is 72 and has a long list of problems including chronic kidney disease, critical aortic stenosis, COPD, dyslipidemia, dementia, thyroid disease, history of ovarian cancer and anemia. She was admitted with change in mental status and aching all over. Inadvertently her troponins were found to be elevated 592, 665 and 822. Her hemoglobin was 10.4. Her creatinine is 0.7. Her echo was repeated which shows a normal ejection fraction with possibly some mild hypokinesis near the apex. The gradient across the aortic valve is 76 mmHg with a valve area of 0.65 cm?. She was also found to have severe pulmonary hypertension with pulmonary pressure of 91 mmHg. She has a ventral hernia and was seen by surgery. She is a very obese woman. The hernia is to be treated expectantly. It is my understanding the angiogram was requested because of the elevated troponin. The patient's not having any chest pain. She is the only 1 in the room this evening. Her family members are not there and she is not really capable of understanding what I am telling her and what the risks of this procedure are. Therefore, I am not comfortable performing the angiogram at this time until I talk to her family and explained the risks. This is a high risk situation given her aortic stenosis and potential for renal failure then complicated by severe pulmonary hypertension. I will check in with her again tomorrow morning and see if I can speak to the family.
--- NOTE | 2023-03-07 15:12 | PM.TDS ---
Transfer Summary Providers Date of Admission: 03/05/23 23:35 Date of Discharge/Transfer: 03/07/23 Attending Provider at Admission: Tarik Green MD Attending Provider at Transfer: Mark Cash MD Consults: Surgery: Dr. Butler Cardiology: Dr. Lopez Primary Care Provider: Gerald Cooper Transfer Plans: Anticipated date of transfer: 03/07/23. Receiving Facility: [facility]. Receiving Provider: Dr. Keller. Diagnoses at Discharge Discharge Diagnosis (1) Acute non-ST elevation myocardial infarction (NSTEMI): Status: Acute (2) Severe aortic valve stenosis: Status: Acute (3) Dyslipidemia: Status: Acute (4) Hypothyroidism: Status: Acute (5) Dementia: Status: Acute (6) Abdominal pain: Status: Acute Reason for Visit Reason for Visit fall Hospital Course Hospital Course Paulina Kraus is a 72 year old female history of [place] PD, history of smoking, hypothyroidism, GERD CKD stage III, dyslipidemia, dementia, history of aortic stenosis, patient has declined TAVR, who presents [facility] due to increased confusion, and fall out of bed.? Currently patient is alert to person, not to place, to time, she can follow commands, but is quite confused, family members at bedside tells me that she lives at home with her daughter and her son-in-law, she has been more confused recently, she has been falling, this evening, she fell out of bed, not exactly sure how, she has dementia, no fevers, no chills, no cough.? She denies any shortness of breath, she is on room air, she shows me that she has a knot in her abdomen that she wants me to take a look at that it bothers her sometimes.? She denies any headache, no blurry vision, no neck pain, no back pain, no joint pain, but family numbers do tell me that she has been complaining of right knee pain recently she has had a right knee replaced. Patient was under the ICU further evaluation and management of strangulated ventral hernia with partial bowel obstruction. Surgery was consulted. She was started on broad-spectrum antibiotics and IV hydration. On admission she was found to have elevated troponins with positive delta. She was started on IV heparin drip with concerns for non-ST elevation [place]. Cardiology was consulted. Echocardiogram was repeated which showed EF of 69% with grade 1 diastolic dysfunction, regional wall motion abnormality with mild hypokinesia of apical septum, severe with mean gradient of 74 across the valve, severe pulmonary hypertension with PASP of 91 mmHg. During hospitalization patient declined any chest pains and remained hemodynamically stable on room air. Patient underwent serial abdominal examinations. At first as per surgery recommendations she was started on clear liquid diet. During hospitalization she developed more abdominal pain and hernia became nonreducible for which surgical team recommended urgent surgery. Surgical team also requested patient to be transferred to a higher center given multiple comorbidities with ongoing non-ST elevation [place], severe pulmonary hypertension and severe as we do not have an ic engineer and most likely patient will require prolonged ICU care postoperatively. Above discussed in detail with the patient and she was agreeable for transfer. Patient was accepted at [facility] by . She has been transferred in hemodynamically stable condition Physical Exam Narrative: General: Mild acute distress because of abdominal pain, AO x3, morbid obesity HEENT: PERRLA, pupils bilaterally equal and reactive Chest: Normal vesicular breath sounds, no added sounds, equal good air entry bilaterally CVS: S1-S2 regular, no murmurs, no tachycardia, no gallops, no rubs Abdomen: Soft, generalized tenderness more so in central abdomen, nonreducible ventral hernia, no organomegaly, bowel sounds present but sluggish Neuro: No focal deficits, no facial deformity, AO x3, power 5/5 in all limbs Urinary Catheter Management: Thompson: Cath Placed During This Visit: yes Reason for Continuing Indwelling Catheter: Accurate Measurement of Urinary Output in Critically Ill Patients Urinary Catheter Date of Insertion: 03/06/23 Urinary Catheter Time of Insertion: 11:16 TS Data Studies Completed and Pending Pending at discharge Category Date Time Status Blood Culture Stat Lab 03/05/23 22:16 Results PTT [Partial Thromboplastin Time] Routine Lab 03/07/23 16:55 Ordered Platelet Count Q2D Lab 03/08/23 04:00 Ordered Platelet Count Q2D Lab 03/10/23 04:00 Ordered Sputum Culture and Gram Stain Stat Lab 03/06/23 00:34 Uncollected Urine Culture Stat Lab 03/05/23 21:11 Results NM serafin perf SPECT r/s* [id number] Routine Nuc Med 03/08/23 00:08 Ordered Labs from last 24 hours 03/07/23 03/07/2323 10:55 03:52 03:52 WBC 19.3 H RBC 3.27 L Hgb 10.4 L Hct 32.5 L MCV 99.4 H MCH 31.8 MCHC 32.0 RDW 13.4 Plt Count 241 MPV 10.8 H Neut % (Auto) 83.8 Lymph % (Auto) 7.3 [place] % (Auto) 7.7 Eos % (Auto) 0.0 Baso % (Auto) 0.3 Neut # (Auto) 16.15 H Lymph # (Auto) 1.4 [place] # (Auto) 1.5 H Eos # (Auto) 0.0 Baso # (Auto) 0.1 Nucleated RBC % (auto) 0 Nucleated RBCs # 0.0 APTT 60.0 H Sodium 139 Potassium 3.2 L Chloride 106 Carbon Dioxide 22 Anion Gap 14.2 BUN 13 Creatinine 0.7 GFR Calculation Not Reportable Glucose 92 Calculated Osmolality 288 Calcium 7.5 L Total Bilirubin 0.5 AST 78 H ALT 20 Alkaline Phosphatase 86 Total Protein 5.7 L Albumin 2.9 L Globulin 2.8 03/07/23 03/06/23 03/06/23 03:52 21:44 14:30 WBC RBC Hgb Hct MCV MCH MCHC RDW Plt Count MPV Neut % (Auto) Lymph % (Auto) [place] % (Auto) Eos % (Auto) Baso % (Auto) Neut # (Auto) Lymph # (Auto) [place] # (Auto) Eos # (Auto) Baso # (Auto) Nucleated RBC % (auto) Nucleated RBCs # APTT 67.8 H 79.4 H D 35.1 D Sodium Potassium Chloride Carbon Dioxide Anion Gap BUN Creatinine GFR Calculation Glucose Calculated Osmolality Calcium Total Bilirubin AST ALT Alkaline Phosphatase Total Protein Albumin Globulin Completed Studies During Hospitalization Category Date Time Status CT abdomen pelvis wo con [id number] Routine Cat Scan 03/06/23 00:[address] head wo con* [id number] Stat Cat Scan 03/05/23 20:03 Completed XR acute abdomen series [id number] Routine Exams 03/07/23 09:39 Completed XR chest 1V portable [id number] Stat Exams 03/05/23 21:50 Completed MR head wo/w con [id number] Stat MRI 03/05/23 21:43 Completed CV. echo complete* [id number] Routine Ultrasound 03/06/23 05:27 Completed US gall bladder [id number] Routine Ultrasound 03/06/23 01:40 Completed Laboratory Last Values WBC 19.3 10^3/uL (4.0-10.0) H 03/07/23 03:52 RBC 3.27 10^6/uL (4.1-5.3) L 03/07/23 03:52 Hgb 10.4 g/dL (11.5-15.3) L 03/07/23 03:52 Hct 32.5 % (37.0-47.0) L 03/07/23 03:52 MCV 99.4 fl (81-99) H 03/07/23 03:52 MCH 31.8 pg (28.0-34.0) 03/07/23 03:52 MCHC 32.0 g/dL (30.0-36.0) 03/07/23 03:52 RDW 13.4 % (12.1-15.1) 03/07/23 03:52 Plt Count 241 10^3/cmm (130-400) 03/07/23 03:52 MPV 10.8 fL (7.4-10.4) H 03/07/23 03:52 Neut % (Auto) 83.8 % 03/07/23 03:52 Lymph % (Auto) 7.3 % 03/07/23 03:52 [place] % (Auto) 7.7 % 03/07/23 03:52 Eos % (Auto) 0.0 % 03/07/23 03:52 Baso % (Auto) 0.3 % 03/07/23 03:52 Neut # (Auto) 16.15 10^3/uL (1.8-7.7) H 03/07/23 03:52 Lymph # (Auto) 1.4 10^3/uL (0.8-4.8) 03/07/23 03:52 [place] # (Auto) 1.5 10^3/uL (0.2-0.9) H 03/07/23 03:52 Eos # (Auto) 0.0 10^3/uL (0.0-0.8) 03/07/23 03:52 Baso # (Auto) 0.1 10^3/uL (0.0-0.1) 03/07/23 03:52 Nucleated RBC % (auto) 0 % 03/07/23 03:52 Nucleated RBCs # 0.0 /100WBC 03/07/23 03:52 APTT 60.0 SECONDS (23.9-36.7) H 03/07/23 10:55 Sodium 139 mmol/L (136-145) 03/07/23 03:52 Potassium 3.2 mmol/L (3.5-5.1) L 03/07/23 03:52 Chloride 106 mmol/L (98-107) 03/07/23 03:52 Carbon Dioxide 22 mmol/L (22-29) 03/07/23 03:52 Anion Gap 14.2 (5-19) 03/07/23 03:52 BUN 13 mg/dL (8-23) 03/07/23 03:52 Creatinine 0.7 mg/dL (0.5-0.9) 03/07/23 03:52 GFR Calculation Not Reportable 03/07/23 03:52 Glucose 92 mg/dL (65-115) 03/07/23 03:52 Estimat Average Glucose 97 03/05/23 20:05 Hemoglobin A1c 5.0 % (4.0-6.0) 03/05/23 20:05 Calculated Osmolality 288 mOsm/kg (285-295) 03/07/23 03:52 Lactic Acid 0.9 mmol/L (0.5-2.2) 03/06/23 07:14 Calcium 7.5 mg/dL (8.5-10.5) L 03/07/23 03:52 Iron 14 ug/dL (37-145) L 03/06/23 09:49 TIBC 258 mcg/dl 03/06/23 09:49 % Saturation 5.4 % (20-50) L 03/06/23 09:49 Unsat Iron Binding 244 ug/dL (112-347) 03/06/23 09:49 Total Bilirubin 0.5 mg/dL (0.15-1.2) 03/07/23 03:52 AST 78 U/L (0-32) H 03/07/23 03:52 ALT 20 U/L (0-33) 03/07/23 03:52 Alkaline Phosphatase 86 U/L (35-105) 03/07/23 03:52 Creatine Kinase 1656 U/L (26-192) H* 03/05/23 22:13 Troponin T Baseline 592 ng/L (0-10) H* 03/06/23 01:34 Troponin T 120 Minute 665.6 ng/L (0-10) H 03/06/23 03:34 Delta Troponin T 73.6 ABS# (0-10) H* 03/06/23 03:34 Troponin T Hi Sens 6Hr 822.7 ng/L (0-10) H 03/06/23 07:14 Troponin T Hi Sens 6Hr Delta 230.7 ng/L (0-12) H* 03/06/23 07:14 C-Reactive Protein 56.2 mg/L (0.0-4.9) H 03/05/23 22:13 NT-Pro-B Natriuret Pep 1815 pg/mL (0-125) H 03/05/23 22:13 Total Protein 5.7 g/dL (6.6-8.7) L 03/07/23 03:52 Albumin 2.9 g/dL (3.5-5.2) L 03/07/23 03:52 Globulin 2.8 g/dL (1.3-4.6) 03/07/23 03:52 Triglycerides 72 mg/dL (0-150) 03/05/23 22:13 Cholesterol 120 mg/dL (0-200) 03/05/23 22:13 LDL Cholesterol, Calc 63 mg/dL (50-129) 03/05/23 22:13 HDL Cholesterol 43 mg/dL (60-100) L 03/05/23 22:13 LDL/HDL Ratio 1.47 RATIO (0.00-3.22) 03/05/23 22:13 Cholesterol/HDL Ratio 2.79 mg/dL (0.0-4.40) 03/05/23 22:13 Vitamin B12 203 pg/mL (232-1245) L 03/06/23 09:49 Folate 6.2 ng/mL (4.8-37.3) 03/06/23 09:49 Procalcitonin 1.15 ng/mL (0-0.5) H 03/05/23 22:13 TSH 0.73 uIU/mL (0.27-4.20) 03/05/23 22:13 Urine Color Yellow (Yellow) 03/05/23 21:11 Urine Appearance Sl hazy (CLEAR) A 03/05/23 21:11 Urine pH 5 (5-7) 03/05/23 21:11 Ur Specific [place] 1.020 (1.005-1.030) 03/05/23 21:11 Urine Protein Trace (Negative) 03/05/23 21:11 Urine Glucose (UA) Norm (Normal) 03/05/23 21:11 Urine Ketones Negative (Negative) 03/05/23 21:11 Urine Blood 2+ (Negative) H 03/05/23 21:11 Urine Nitrate Positive (Negative) H 03/05/23 21:11 Urine Bilirubin Neg (Negative) 03/05/23 21:11 Urine Urobilinogen Neg mg/dL (Negative) 03/05/23 21:11 Ur Leukocyte Esterase Negative (Negative) 03/05/23 21:11 Urine RBC 0-4 /hpf (0-2) H 03/05/23 21:11 Urine WBC 5-10 /hpf (0-5) H 03/05/23 21:11 Ur Squamous Epith Cells 0-4 /hpf (0-5) H 03/05/23 21:11 Amorphous Sediment Not Reportable 03/05/23 21:11 Urine Bacteria 4+ /hpf (NONE) H 03/05/23 21:11 Nasal Influ A H1 2008 PCR Not detected (NOT DETECT) 03/06/23 02:15 Adenovirus (PCR) Not detected (NOT DETECT) 03/06/23 02:15 C. pneumoniae DNA (PCR) Not detected (NOT DETECT) 03/06/23 02:15 Coronavirus 229E (PCR) Not detected (NOT DETECT) 03/06/23 02:15 Human Metapneumovir PCR Not detected (NOT DETECT) 03/06/23 02:15 Influenza A (H1) PCR Not detected (NOT DETECT) 03/06/23 02:15 Influenza A (H3) PCR Not detected (NOT DETECT) 03/06/23 02:15 Influenza Type A (PCR) Not detected (NOT DETECT) 03/06/23 02:15 Influenza Type B (PCR) Not detected (NOT DETECT) 03/06/23 02:15 M. pneumoniae (PCR) Not detected (NOT DETECT) 03/06/23 02:15 Parainfluenza 1 (PCR) Not detected (NOT DETECT) 03/06/23 02:15 Parainfluenza 2 (PCR) Not detected (NOT DETECT) 03/06/23 02:15 Parainfluenza 3 (PCR) Not detected (NOT DETECT) 03/06/23 02:15 Parainfluenza 4 (PCR) Not detected (NOT DETECT) 03/06/23 02:15 RSV Type A (PCR) Not detected (NOT DETECT) 03/06/23 02:15 RSV Type B (PCR) Not detected (NOT DETECT) 03/06/23 02:15 Entero/Rhino (PCR) Not detected (NOT DETECT) 03/06/23 02:15 SARS-CoV-2 (PCR) Not detected (NOT DETECT) 03/06/23 02:[address] 03/05/23 20:03 IMPRESSION: 1. No acute intracranial findings. 2. There is a cystic mass in the left parasellar region with mass effect measuring 3.8 x 3.0 cm maximum size. There is adjacent regions of hypodensity in the left thalamus which may be related to chronic lacunar-type infarcts. Further characterization with MRI brain with and without contrast material is recommended. Differential diagnosis is most likely an arachnoid cyst or dermoid/epidermoid. ADDENDUM: 03/05/232132 THIS REPORT CONTAINS FINDINGS THAT MAY BE CRITICAL TO PATIENT CARE. The findings were verbally communicated via telephone conference with Mike Byrne at 9:30 PM CDT on 03/05/2023. The findings were acknowledged and understood. Head MRI 03/05/23 21:43 IMPRESSION: 1. No acute intracranial findings. 2. 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 Adjacent to this there is cystic changes in the left thalamus and cerebral peduncle which are most likely giant perivascular spaces. No suspicious appearing intracranial mass. Chest X-Ray 03/05/23 21:50 IMPRESSION: Mild perihilar infiltrates. Correlate for pulmonary vascular congestion versus pneumonia. Abdomen/Pelvis CT 03/06/23 00:18 IMPRESSION: 1. There is a left lower quadrant ventral abdominal wall hernia with narrow neck containing a portion of descending colon. The colon in the neck of the hernia is thickened and there is likely partial large bowel obstruction present. There is stranding in the hernia sac suspicious for strangulation- correlate for possible incarceration clinically. There is also adjacent soft tissue inflammation suspicious for cellulitis. No abscess or fluid collection is seen. 2. Distended gallbladder with gallstones. Suggest right upper quadrant ultrasound correlation. 3. Small focus of air in the bladder. Correlate for cystitis. ADDENDUM: 03/06/23 0115 THIS REPORT CONTAINS FINDINGS THAT MAY BE CRITICAL TO PATIENT CARE. The findings were verbally communicated via telephone conference with TARIK MUNGUIA at 1:13 AM CDT on 03/06/2023. The findings were acknowledged and understood. Gallbladder Ultrasound 03/06/23 01:40 Impression: Sludge in the gallbladder and at least 2 gallstones. Chest/Abdomen X-ray 03/07/23 09:39 IMPRESSION: Ventral hernia with colon obstruction as above. Echocardiogram: CONCLUSIONS ?Normal left ventricular size and systolic function, EF 69 %.? ?Moderate hypokinesia of the apical septum. ?Grade I/IV diastolic dysfunction (abnormal relaxation filling ?pattern), normal to mildly elevated filling pressures. ?Severe aortic valve stenosis, mean gradient 76.8 mmHg, HILDA 0.65 ?cm squared.? Peak velocity of 6.07 m/s.? Peak gradient of? 158 mmHg and ?a mean gradient of 74 mmHg. ?Mildly increased left atrial size. ?Moderate mitral annular calcification. ?Mild tricuspid valve regurgitation. ?Severe pulmonary hypertension.Estimated pulmonary artery peak ?systolic pressure 91 mmHg. ?Trace pulmonary valve regurgitation. ?Compared to the study from 11/08/2021, exact comparison may be ?difficult because of the difference in technical quality.? The ?aortic stenosis appears to be more severe.? Development of ?severe pulmonary hypertension also is noted ?Dr Chante Lopez MD [facility] ?(Electronically Signed) ?Final Date:? ? ? 07 Mar 2023 07:52 S Recent Clincial Data Last Vital Signs Temp 98.5 F 03/07/23 13:40 Pulse 86 03/07/23 13:40 Resp 23 H 03/07/23 13:40 BP 101/65 03/07/23 13:40 Pulse Ox 98 03/07/23 13:40 O2 Del Method Room Air 03/07/23 13:40 Vital Signs Temp Pulse Resp BP Pulse Ox O2 Del Method 03/07/23 13:40 98.5 F 86 23 H 101/65 98 Room Air 03/07/23 12:00 97 19 H 96/59 97 Room Air 03/07/23 09:10 94 18 94 Room Air 03/07/23 08:00 99.5 F 90 19 H 97/62 93 Room Air 03/07/23 06:15 99.0 F 03/07/23 06:00 92 03/07/23 05:40 101.3 F H 96 22 H 100/63 93 Room Air 03/07/23 05:00 91 25 H 96/53 91 Room Air 03/07/23 04:00 90 21 H 92/52 03/07/23 04:00 91 16 92 Room Air Intake & Output/Weight 03/05/23 03/06/23 03/07/23 03/08/23 06:59 06:59 06:59 06:59 Intake Total 1300 / 1300 2836.850 / 2836.850 910 / 910 Output Total 600 / 600 Balance 1300 / 1300 2236.850 / 2236.850 910 / 910 Weight 91.49 kg Vitals Last Vital Signs Temp 98.5 F 03/07/23 13:40 Pulse 86 03/07/23 13:40 Resp 23 H 03/07/23 13:40 BP 101/65 03/07/23 13:40 Pulse Ox 98 03/07/23 13:40 O2 Del Method Room Air 03/07/23 13:40 TS Medications Medications Acetaminophen (Acetaminophen 325 Mg Tablet) 650 mg PO Q6H PRN PRN Reason: Mild/Mod Pain Or Temp >/= 101 Last Admin: 03/07/23 05:45 Dose: 650 mg Albuterol/Ipratropium (Ipratropium-Albuterol 3 Ml Neb) 3 ml INHALATION Q4H.RESPIRATORY VELIA Last Admin: 03/07/23 11:46 Dose: Not Given Aspirin (Aspirin 81 Mg Ec Tablet) 81 mg PO DAILY VELIA Last Admin: 03/07/23 09:51 Dose: 81 mg Aspirin (Aspirin 325 Mg Tablet) 325 mg PO ONCE ONE Stop: 03/08/23 06:01 Atorvastatin Calcium (Atorvastatin 40 Mg Tablet) 20 mg PO BEDTIME VELIA Last Admin: 03/06/23 20:29 Dose: 20 mg Budesonide (Budesonide 0.5 Mg/2 Ml Neb) 0.5 mg INHALATION BID.RESPIRATORY VELIA Last Admin: 03/07/23 09:07 Dose: 0.5 mg Cyanocobalamin (Cyanocobalamin 1,000 Mcg Tablet) 1,000 mcg PO DAILY [facility] Last Admin: 03/07/23 09:51 Dose: 1,000 mcg Denture Adhesive (Fixodent 39 Gm Tube) 1 applic DENTAL PRN PRN PRN Reason: denture adhesive Diphenhydramine HCl (Diphenhydramine 50 Mg Capsule) 50 mg PO ONCE ONE Stop: 03/08/23 06:01 Donepezil HCl (Donepezil 5 Mg Tablet) 10 mg PO BEDTIME [facility] Last Admin: 03/06/23 20:29 Dose: 10 mg Ferrous Gluconate (Ferrous Gluconate 324 Mg Tablet) 324 mg PO BIDWM [facility] Heparin Sodium (Porcine) (Heparin 5,000 Unit/Ml Inj 1 Ml) 0 unit IV PRN PRN; Protocol PRN Reason: Heparin weight-base protocol Last Admin: 03/06/23 05:47 Dose: 4,600 unit Piperacillin Sod/Tazobactam (Sod 3.375 gm/ Sodium Chloride) 50 mls @ 12.5 mls/hr IV Q8H [facility]; Protocol Last Admin: 03/07/23 13:32 Dose: 12.5 mls/hr Sodium Chloride (Sodium Chloride 0.9%) 1,000 mls @ 75 mls/hr IV .[id number] [facility] Last Admin: 03/07/23 03:15 Dose: 75 mls/hr Heparin Sodium/Sodium Chloride (Heparin Drip) 25,000 unit in 500 mls @ 0 mls/hr IV .Q0M VELIA; Protocol Last Admin: 03/07/23 05:08 Dose: 13.12 unit/kg/hr, 24 mls/hr Sodium Chloride (Sodium Chloride 0.9%) 1,000 mls @ 50 mls/hr IV .Q20H ONE Stop: 03/09/23 01:59 Levothyroxine Sodium (Levothyroxine 125 Mcg Tablet) 125 mcg PO QAM [facility] Last Admin: 03/07/23 05:45 Dose: 125 mcg Ondansetron HCl (Ondansetron 2 Mg/Ml Sdv 2 Ml) 4 mg IVP Q8H PRN PRN Reason: vomiting, or N/V if npo Oxybutynin Chloride (Oxybutynin 5 Mg Tablet) 5 mg PO TID [facility] Last Admin: 03/07/23 09:51 Dose: 5 mg Risperidone (Risperidone 0.25 Mg Tablet) 0.25 mg PO BID [facility] Last Admin: 03/07/23 09:51 Dose: 0.25 mg Venlafaxine HCl (Venlafaxine Er (24hr) 75 Mg Capsule) 75 mg PO QAM [facility] Last Admin: 03/07/23 05:45 Dose: 75 mg Discontinued Medications Aspirin (Aspirin 81 Mg Ec Tablet) 81 mg PO DAILY [facility] Last Admin: 03/07/23 07:39 Dose: Not Given Aspirin (Aspirin 300 Mg Supp) 300 mg [place] DAILY [facility] Last Admin: 03/07/23 09:52 Dose: Not Given Cyanocobalamin (Cyanocobalamin 1,000 Mcg/Ml Sdv) 1,000 mcg IM ONCE ONE Stop: 03/06/23 18:52 Last Admin: 03/06/23 20:33 Dose: 1,000 mcg Dexamethasone (Dexamethasone 10 Mg/Ml Inj) 6 mg IVP Q24H [facility] Last Admin: 03/06/23 01:29 Dose: 6 mg Enoxaparin Sodium (Enoxaparin 40 Mg/0.4 Ml Syringe) 40 mg SUBCUT Q24H [facility] Last Admin: 03/06/23 01:32 Dose: 40 mg Gadobenate Dimeglumine (Gadobenate Dimeglumine 20 Ml Vial) 0 ml IV ONCE ONE Stop: 03/05/23 22:49 Last Admin: 03/05/23 22:49 Dose: 20 ml Sodium Chloride (Sodium Chloride 0.9%) 1,000 mls @ 999 mls/hr IV .Q1H1M ONE Stop: 03/05/23 21:03 Last Infusion: 03/06/23 00:36 Dose: Infused Ceftriaxone Sodium 1,000 mg/ (Sodium Chloride) 50 mls @ 100 mls/hr IV ONCE ONE; Protocol Stop: 03/05/23 22:20 Last Infusion: 03/06/23 00:36 Dose: Infused Vancomycin HCl 1,000 mg/ (Sodium Chloride) 250 mls @ 250 mls/hr IV Q24H [facility] Last Infusion: 03/06/23 03:59 Dose: Infused Levothyroxine Sodium (Levothyroxine 100 Mcg Sdv) 50 mcg IVP DAILY [facility] Potassium Chloride (Potassium Chloride Er 20 Meq Tablet) 40 meq PO ONCE ONE Stop: 03/07/23 09:40 Last Admin: 03/07/23 09:51 Dose: 40 meq Allergies Latex, Natural Rubber Allergy (Unknown, Verified 03/06/23 08:36) unknown tomato Allergy (Unknown, Verified 03/06/23 08:36) unknown Home Medications albuterol sulfate 90 mcg/actuation aerosol inhaler (Ventolin HFA) 2 puff inhalation Q4H PRN Shortness Of Breath 12/06/21 [History Confirmed 03/06/23] atorvastatin 20 mg tablet 20 mg PO BEDTIME 12/06/21 [History Confirmed 03/06/23] famotidine 20 mg tablet 20 mg PO BID 12/06/21 [History Confirmed 03/06/23] oxybutynin chloride 5 mg tablet 5 mg PO TID 12/06/21 [History Confirmed 03/06/23] sennosides 8.6 mg-docusate sodium 50 mg tablet (Stimulant Laxative Plus) 1 tab-cap PO BID PRN Constipation 12/06/21 [History Confirmed 03/06/23] venlafaxine 75 mg capsule,extended release 24 hr 75 mg PO QAM 12/06/21 [History Confirmed 03/06/23] donepezil 10 mg tablet 10 mg PO BEDTIME 03/06/23 [History Confirmed 03/06/23] levothyroxine 125 mcg tablet 125 mcg PO QAM 03/06/23 [History Confirmed 03/06/23] risperidone 0.25 mg tablet 0.25 mg PO BID 03/06/23 [History Confirmed 03/06/23] Discharge Plan Discharge Patient Disposition: Home Condition: Stable Prescriptions: No Action oxybutynin chloride 5 mg tablet 5 mg PO TID sennosides-docusate sodium [Stimulant Laxative Plus] 8.6-50 mg tablet 1 tab-cap PO BID PRN (Reason: Constipation) venlafaxine 75 mg capsule,extended release 24hr 75 mg PO QAM atorvastatin 20 mg tablet 20 mg PO BEDTIME albuterol sulfate [Ventolin HFA] 90 mcg/actuation HFA aerosol inhaler 2 puff inhalation Q4H PRN (Reason: Shortness Of Breath) famotidine 20 mg tablet 20 mg PO BID donepezil 10 mg tablet 10 mg PO BEDTIME risperidone 0.25 mg tablet 0.25 mg PO BID levothyroxine 125 mcg tablet 125 mcg PO QAM Discharge Orders: Transfer Out of Facility (Order); Ordered 03/07/23 Ordered By: Mark Cash Referrals: Gerald Cooper [Primary Care Provider] - Bianka Figueroa FNP [Nurse Practitioner] - Discharge Diet: Advance as tolerated Discharge Activity: Resume usual activity and Increase activity as tolerated Patient Instructions: Opioid Safety Transfer Attestations Time Spent in Transfer Care: critical care time Critical Care Time (min): 60 Specific Discharge Activities: educating patient, educating and/or supporting family/caregiver, discussing with pcp/other providers, discussing with rn case management/social workers/dc planners, documenting/other paperwork and evaluating patient/reviewing data Quality Metrics Clinical Quality Measures [ Acute Myocardial Infaction { Clinical Trial Participant: No; Contraindication to aspirin: None; Aspirin prescribed; Contraindication to statin: None; Statin prescribed; Contraindication to PCI: Procedure contraindicated; Contraindication to Fibrinolytics: None; fibrinolytics given}] Coding Level of Care Code Critical Care >/= 30 minutes Critical care time (in minutes): 60 The high probability of a clinically significant, sudden or life threatening deterioration, as referenced in this documentation, required my full and direct attention, intervention and personal management. The critical care time shown is in addition to time spent performing any reported separately billable procedures and includes the following: [x] Data and vital sign review and interpretation [x] Patient assessment, examination and intervention [x] Medication orders and management [x] Patient/Family updates as able [x] Care Coordination and Documentation. Diagnoses Acute non-ST elevation myocardial infarction (NSTEMI) I21.4 Severe aortic valve stenosis I35.0 Dyslipidemia E78.5 Hypothyroidism E03.9 Dementia F03.90 Abdominal pain R10.9
[2023-03-07 17:28] LABS: Partial Thromboplastin Time 74.9 SECONDS (23.9-36.7)
--- NOTE | 2023-03-07 18:28 | PC.NURSE ---
Called report to Laurie Bagley RN at [facility].
--- NOTE | 2023-03-07 18:31 | PC.NURSE ---
Patient is being transferred to [facility] to 4B bed 4155-1.
== END 2023-03-07 19:30 | disposition short-term general hospital (02) | DRG 281 ==
LOC: ER 23:38 → ICU 23:58 → MEDSURG 03-07 05:32 → CSU 03-07 11:37
PROVIDERS: Emergency Medicine; Admitting Provider Family Medicine; Emergency Provider Emergency Medicine; PCP Family Medicine; Visit Provider Student in an Organized Health Care Education/Training Program
DX: I21.4 Non-ST elevation (NSTEMI) myocardial infarction (principal); G93.49 Other encephalopathy; K43.0 Incisional hernia with obstruction, without gangrene; J44.1 Chronic obstructive pulmonary disease with (acute) exacerbation; K56.609 Unspecified intestinal obstruction, unspecified as to partial versus complete obstruction; Z68.41 Body mass index [BMI] 40.0-44.9, adult; N17.9 Acute kidney failure, unspecified; N30.00 Acute cystitis without hematuria; M62.82 Rhabdomyolysis; W06.XXXA Fall from bed, initial encounter; I35.0 Nonrheumatic aortic (valve) stenosis; E78.5 Hyperlipidemia, unspecified; E03.9 Hypothyroidism, unspecified; F03.90 Unspecified dementia, unspecified severity, without behavioral disturbance, psychotic disturbance, mood disturbance, and anxiety; F17.200 Nicotine dependence, unspecified, uncomplicated; K21.9 Gastro-esophageal reflux disease without esophagitis; I12.9 Hypertensive chronic kidney disease with stage 1 through stage 4 chronic kidney disease, or unspecified chronic kidney disease; N18.30 Chronic kidney disease, stage 3 unspecified; Z96.651 Presence of right artificial knee joint; I27.20 Pulmonary hypertension, unspecified; Z79.51 Long term (current) use of inhaled steroids; E66.9 Obesity, unspecified; D63.1 Anemia in chronic kidney disease; Z85.43 Personal history of malignant neoplasm of ovary; E86.0 Dehydration
CPT/HCPCS: 36415; 51702; 70450; 70553; 71045; 74022; 74176; 76705; 80053; 80061; 81001; 82550; 82607; 82746; 83036; 83540; 83550; 83605; 83880; 84145; 84443; 84484; 85025; 85730; 86140; 87040; 87077; 87086; 87186; 87486; 87581; 87633; 87641; 93005; 93306; 94640; 94664; 96365; 96372; 97110; 97161; 97167; 97530; 99285; A9577; J0696; J1100; J1644; J1650; J2543; J3370; J3420; J7030; J7050; J7626

== ENCOUNTER 2023-06-19 10:11 | Emergency (ER) | payer MEDICARE, MEDICAID, SELFPAY ==
[2023-06-19 10:15] VITALS: BMI 36.1
[2023-06-19 10:18] VITALS: BP 100/73; PULSE 63; RESP 16; TEMP 36.9; O2SAT 96
--- NOTE | 2023-06-19 10:21 | ECG_ITS ---
[facility] Test Date: 2023-06-19 Pat Name: Paulina Kraus Department: Room: Gender: Female Pond Scaler: : 1950 Requested By: Gregorio Marina Order Number: [id number] Ru MD: Angel Casillas M.D. Measurements Intervals [place] Rate: 59 P: 20 AL: 150 QRS: -17 QRSD: 98 T: 56 QT: 435 QTc: 434 Interpretive Statements SINUS BRADYCARDIA VOLTAGE CRITERIA FOR LVH [MEETS CRITERIA IN ONE OF: R(aVL), S(V1), R(V5), R(V5/V6)+S(V1)] POSSIBLE ANTERIOR MYOCARDIAL INFARCTION , OF INDETERMINATE AGE [30 ms Q WAVE IN V3/V4, OR R < 0.2 mV IN V4] Compared to ECG 03/06/2023 06:16:45 Myocardial infarct finding now present Sinus rhythm no longer present ST (T wave) deviation no longer present Electronically Signed On 06-19-2023 14:43:44 CDT by Angel Casillas M.D. [id number]
--- NOTE | 2023-06-19 10:47 | ED_ITS ---
HPI - Abdominal Pain General: Chief Complaint: Abdominal Pain Stated Complaint: stool through Abd Wound Time Seen by Provider: 06/19/23 10:18 Source: patient and RN notes reviewed Mode of arrival: EMS History of Present Illness: 73-year-old female who presents emergency room with complaints of fecal leakage from the abdominal wall defect. She is previously had a bowel resection and has a colostomy and has a abdominal wall defect with exposed mesh. There is a lot of mucus debris there at the intermediate they are concerned she had fecal leakage. MD elicited complaint: abdominal pain Associated Symptoms: Denies anorexia, belching, bloating, change in bowel habits, change in stool character, chills, coffee ground emesis, constipation, GI cramping, diarrhea, dyspepsia, dysuria, excessive flatus, fever(s), heartburn, hematochezia, hematuria, hematemesis, fecal incontinence, loose stools, melena, nausea, poor appetite, syncope and vomiting Review of Systems Const: Denies: fever(s) or chills Card: Denies: syncope Resp: Denies: dyspnea, productive cough or non-productive cough GI: Reports: abdominal pain (Chronic unchanged); Denies: nausea, vomiting, hematemesis, coffee ground emesis, heartburn, diarrhea, constipation, bloating, GI cramping, belching, excessive flatus, fecal incontinence, change in bowel habits, change in stool character, hematochezia or melena : Denies: dysuria, urinary frequency, urinary urgency or hematuria Musc: Denies: neck pain or back pain Skin/Breast: Denies: rash or pruritus PFSH ED PFSH: Medical History DINA (acute kidney injury) Bowel obstruction Closed head injury COPD (chronic obstructive pulmonary disease) COPD exacerbation Dyslipidemia GERD (gastroesophageal reflux disease) Hernia Hypothyroidism Ovarian cancer Surgical History H/O: hysterectomy Social History Smoking and tobacco status: current every day smoker Physical Exam Const: GENERAL APPEARANCE: cooperative and comfortable ORIENTATION/CONSCIOUSNESS: Yes awake, Yes oriented to person, Yes oriented to place and Yes oriented to time HENMT: COMMON NORMALS: normocephalic, atraumatic and hearing grossly normal bilaterally HEAD & SCALP: normocephalic and atraumatic Resp: COMMON NORMALS: normal respiratory effort, No retractions, No use of accessory muscles and clear to auscultation bilaterally AUSCULTATION: clear to auscultation bilaterally Cardio: COMMON NORMALS: regular rate, regular rhythm and No murmurs present (Cardio) RATE: regular rate RHYTHM: regular rhythm GI: COMMON NORMALS: Soft to palpation and No hepatosplenomegaly present A USCULTATION: Yes normoactive bowel sounds PALPATION: Yes Soft to palpation, No Tenderness to palpation present (GI), No Guarding due to palpation present (GI) and Yes No hepatosplenomegaly present Extremity: COMMON NORMALS: normal to inspection, capillary refill normal, no clubbing, cyanosis or edema, no calf tenderness and no pedal edema Neuro: SENSORIUM/ORIENTATION: Yes oriented to person, Yes oriented to place and Yes oriented to time Skin: COMMON NORMALS: no rashes or lesions noted GENERAL SKIN EXAM: no rashes or lesions noted Course Vital Signs: Vital signs: Vital Signs Temperature 98.4 F 06/19/23 10:18 Pulse Rate 63 06/19/23 10:18 Respiratory Rate 16 06/19/23 10:18 Blood Pressure 100/73 06/19/23 10:18 Pulse Oximetry 96 06/19/23 10:18 Oxygen Delivery Me thod Room Air 06/19/23 10:18 MDM - Abdominal Pain Medical Decision Making Examination the wound and there is no fecal matter exiting from the wound itself there is exposure of the underlying mesh and the significant dehiscence of the abdominal wall incision. CT shows bowel immediately underlying the mesh but there is no communication exteriorly. Reviewed with radiology. Reexamination of the dehisced wound after initial evaluation I did not see any evidence of drainage. There is some mucousy eschar at the edges and granulation tissue. For now continue routine wound care return to the intermediate Medical Records I reviewed the patient's medical records. Lab Data I reviewed the patient's lab results. 06/19/23 10:48 06/19/23 10:48 Labs/Radiology: Laboratory Results WBC 8.4 10^3/uL (4.0-10.0) 06/19/23 10:48 RBC 3.65 10^6/uL (4.1-5.3) L 06/19/23 10:48 Hgb 9.7 g/dL (11.5-15.3) L 06/19/23 10:48 Hct 33.7 % (37.0-47.0) L 06/19/23 10:48 MCV 92.3 fl (81-99) 06/19/23 10:48 MCH 26.6 pg (28.0-34.0) L 06/19/23 10:48 MCHC 28.8 g/dL (30.0-36.0) L 06/19/23 10:48 RDW 14.8 % (12.1-15.1) 06/19/23 10:48 Plt Count 392 10^3/cmm (130-400) 06/19/23 10:48 MPV 10.1 fL (7.4-10.4) 06/19/23 10:48 Neut % (Auto) 51.9 % 06/19/23 10:48 Lymph % (Auto) 37.7 % 06/19/23 10:48 [place] % (Auto) 7.5 % 06/19/23 10:48 Eos % (Auto) 2.0 % 06/19/23 10:48 Baso % (Auto) 0.7 % 06/19/23 10:48 Neut # (Auto) 4.34 10^3/uL (1.8-7.7) 06/19/23 10:48 Lymph # (Auto) 3.2 10^3/uL (0.8-4.8) 06/19/23 10:48 Traill # (Auto) 0.6 10^3/uL (0.2-0.9) 06/19/23 10:48 Eos # (Auto) 0.2 10^3/uL (0.0-0.8) 06/19/23 10:48 Baso # (Auto) 0.1 10^3/uL (0.0-0.1) 06/19/23 10:48 Nucleated RBC % (auto) 0 % 06/19/23 10:48 Nucleated RBCs # 0.0 /100WBC 06/19/23 10:48 Sodium 139 mmol/L (136-145) 06/19/23 10:48 Potassium 3.2 mmol/L (3.5-5.1) L 06/19/23 10:48 Chloride 103 mmol/L (98-107) 06/19/23 10:48 Carbon Dioxide 26 mmol/L (22-29) 06/19/23 10:48 Anion Gap 13.2 (5-19) 06/19/23 10:48 BUN 6 mg/dL (8-23) L 06/19/23 10:48 Creatinine 0.4 mg/dL (0.5-0.9) L 06/19/23 10:48 GFR Calculation Not Reportable 06/19/23 10:48 Glucose 89 mg/dL (65-115) 06/19/23 10:48 Calculated Osmolality 285 mOsm/kg (285-295) 06/19/23 10:48 Lactic Acid 1.9 mmol/L (0.5-2.2) 06/19/23 10:48 Calcium 8.5 mg/dL (8.5-10.5) 06/19/23 10:48 Total Bilirubin 0.2 mg/dL (0.15-1.2) 06/19/23 10:48 AST 16 U/L (0-32) 06/19/23 10:48 ALT 7 U/L (0-33) 06/19/23 10:48 Alkaline Phosphatase 103 U/L (35-105) 06/19/23 10:48 Total Protein 6.3 g/dL (6.6-8.7) L 06/19/23 10:48 Albumin 3.0 g/dL (3.5-5.2) L 06/19/23 10:48 Globulin 3.3 g/dL (1.3-4.6) 06/19/23 10:48 Lipase 17 U/L (13-60) 06/19/23 10:48 Urine Color Yellow (Yellow) 06/19/23 11:07 Urine Appearance Clear (CLEAR) 06/19/23 11:07 Urine pH 5 (5-7) 06/19/23 11:07 Ur Specific [place] 1.020 (1.005-1.030) 06/19/23 11:07 Urine Protein Neg (Negative) 06/19/23 11:07 Urine Glucose (UA) Norm (Normal) 06/19/23 11:07 Urine Ketones Negative (Negative) 06/19/23 11:07 Urine Blood Neg (Negative) 06/19/23 11:07 Urine Nitrate Negative (Negative) 06/19/23 11:07 Urine Bilirubin Neg (Negative) 06/19/23 11:07 Urine Urobilinogen Norm mg/dL (Negative) 06/19/23 11:07 Ur Leukocyte Esterase Negative (Negative) 06/19/23 11:07 Discharge Plan Discharge Patient Disposition: Home Clinical Impression: Abdominal wall dehiscence Condition: Stable Prescriptions: No Action venlafaxine 75 mg capsule,extended release 24hr 75 mg PO QAM famotidine 20 mg tablet 20 mg PO BID Aspir-81 81 mg Tablet,Delayed Release (Dr/Ec) 81 mg PO DAILY amoxicillin-pot clavulanate 875-125 mg Tablet 1 tab PO BID acetaminophen 325 mg Capsule 650 mg PO QID PRN (Reason: Pain) fluconazole 200 mg Tablet 400 mg PO DAILY Ferrex 150 150 mg iron Capsule 150 mg PO DAILY Probiotic 10 billion cell Capsule 10,000 mmu cells PO DAILY risperidone 0.5 mg tablet 0.5 mg PO BID donepezil 10 mg tablet 10 mg PO BEDTIME levothyroxine 125 mcg tablet 125 mcg PO QAM Discharge Orders: Discharge ED (Routine); Ordered 06/19/23 Ordered By: Gregorio Portillo Referrals: Gerald Cooper [Primary Care Provider] - Discharge Diet: Usual diet Discharge Activity: Increase activity as tolerated Patient Instructions: Opioid Safety, Pain Management Activity Restrictions/Additional Instructions: You are seen today for complaint of stool coming from the abdominal wall. CT reviewed and discussed the radiologist I do not see any evidence of a communication of bowel between the dehiscence at the abdominal wall incision. Recommend they continue routine cares for the dehiscence of the abdominal wall incision and to follow-up with the surgeon who did your surgery in [place] as soon as you are able. Coding Level of Care Code ED Auger Press Operator for Brendan Peralta
--- NOTE | 2023-06-19 10:55 | CT_ITS ---
WS: [id number] CT ABDOMEN AND PELVIS NONCONTRAST HISTORY: Abdominal pain TECHNIQUE: Imaging performed through the abdomen and pelvis. Coronal and sagittal reformats are submi tted. All CT scans at [facility] use at least one of these dose optimization techniques: auto mated exposure control; mA and/or kV adjustment per patient size (includes targeted exams where dose is matched to clinical indication); or iterative reconstruction. DLP: 842.31 mGy.cm COMPARISON: 03/06/2023 Lower thorax: Lung bases are clear. Visualized heart is normal. No hiatal hernia. Liver: Mild hepatic steatosis and hepatomegaly. Gallbladder: Prior cholecystectomy. Pancreas: Normal size and attenuation. Normal pancreatic duct. No pancreatitis or mass. Spleen: Normal. Adrenal glands: Normal. No mass. Right kidney: Normal size kidney with no mass or hydronephrosis. Left kidney: Normal size kidney with no mass or hydronephrosis. Aorta: Mild atherosclerosis abdominal aorta with no aneurysm. No free fluid, intraperitoneal air or significant lymphadenopathy. GI tract: Gastrostomy tube is present. No small bowel obstruction. Left lower quadrant colostomy. The re is no dilatation or obstruction at the end colostomy. No parastomal hernia is identified. There is a single loop of colon extending to the ostomy. No obstruction. Ventral abdominal wall postsurgical changes. There is a small superficial soft tissue collection which is probably a postoperative seroma measuring 2.7 x 2.1 cm. Ventral abdominal wall postsurgical site remains open. There is a loop of small bowel and possibly co francisco very close to the ventral peritoneum which could be protruding through as a history suggest. Ther e is no obstruction or obvious protrusion. Pelvis: No free fluid. Nondistended urinary bladder. Osseous structures: Mild increase in the lumbar lordosis. IMPRESSION: 1. Left lower quadrant colostomy. No parastomal hernia identified on this exam. 2. Large postsurgical defect along the anterior abdominal wall. Loops of GI tract very close to the ventral peritoneum. No obvious protrusion beyond the peritoneal cavity by imaging. 3. Small superficial soft tissue collection along the right anterior abdominal wall measures 2.7 x 2 .1 cm. Postoperative seroma versus small abscess. 4. Prior cholecystectomy.
[2023-06-19 10:57] LABS: Basophils # 0.1 10^3/uL (0.0-0.1); Basophils % 0.7 %; Eosinophils # 0.2 10^3/uL (0.0-0.8); Hematocrit 33.7 % (37.0-47.0); Hemoglobin 9.7 g/dL (11.5-15.3); Lymphocytes # 3.2 10^3/uL (0.8-4.8); Lymphocytes % 37.7 %; Mean Corpuscular HGB Conc 28.8 g/dL (30.0-36.0); Mean Corpuscular Hemoglobin 26.6 pg (28.0-34.0); Mean Corpuscular Volume 92.3 fl (81-99); Mean Platelet Volume 10.1 fL (7.4-10.4); Monocytes # 0.6 10^3/uL (0.2-0.9); Monocytes % 7.5 %; Neutrophils # 4.34 10^3/uL (1.8-7.7); Neutrophils % 51.9 %; Nucleated Red Blood Cells % 0 %; Platelet Count 392 10^3/cmm (130-400); Red Blood Count 3.65 10^6/uL (4.1-5.3); Red Cell Distribution Width 14.8 % (12.1-15.1); White Blood Count 8.4 10^3/uL (4.0-10.0)
[2023-06-19 11:09] LABS: Add Urine Microscopic? NO; Charge for UA Resulting for Rev
[2023-06-19 11:12] LABS: Lactic Sepsis W/Reflex 1.9 mmol/L (0.5-2.2)
[2023-06-19 11:12] LABS: Urine Appearance Clear (CLEAR); Urine Color Yellow (Yellow)
[2023-06-19 11:13] LABS: Bilirubin Urine Neg (Negative); Blood Urine Neg (Negative); Glucose Urine UA Norm (Normal); Ketones Urine Negative (Negative); Leukocyte Esterase Urine Negative (Negative); Nitrate Urine Negative (Negative); Protein Urine Neg (Negative); Urobilinogen Urine Norm (Negative); pH Urine 5 (5-7)
[2023-06-19 11:30] LABS: Alanine Aminotransferase 7 U/L (0-33); Alkaline Phosphatase 103 U/L (35-105); Anion Gap 13.2 (5-19); Aspartate Amino Transferase 16 U/L (0-32); Blood Urea Nitrogen 6 mg/dL (8-23); Calcium 8.5 mg/dL (8.5-10.5); Carbon Dioxide 26 mmol/L (22-29); Chloride 103 mmol/L (98-107); Globulin 3.3 g/dL (1.3-4.6); Glucose 89 mg/dL (65-115); Lipase 17 U/L (13-60); Osmolality Calculated 285 mOsm/kg (285-295); Potassium 3.2 mmol/L (3.5-5.1); Sodium 139 mmol/L (136-145); Total Bilirubin 0.2 mg/dL (0.15-1.2); Total Protein 6.3 g/dL (6.6-8.7)
== END 2023-06-19 14:02 | disposition home or self-care (01) ==
PROVIDERS: Emergency Provider Family Medicine; PCP Family Medicine
DX: T81.31XA Disruption of external operation (surgical) wound, not elsewhere classified, initial encounter (principal); Y83.3 Surgical operation with formation of external stoma as the cause of abnormal reaction of the patient, or of later complication, without mention of misadventure at the time of the procedure; F17.210 Nicotine dependence, cigarettes, uncomplicated; J44.9 Chronic obstructive pulmonary disease, unspecified; E78.5 Hyperlipidemia, unspecified; Z85.43 Personal history of malignant neoplasm of ovary
CPT/HCPCS: 36415; 74176; 80053; 81003; 83605; 83690; 85025; 93005; 99285

== ENCOUNTER → 2024-03-03 08:25 | Outpatient (BNVA) | payer MEDICARE, MEDICAID, SELFPAY | PROVIDERS: PCP Family Medicine; Visit Provider Podiatrist Foot & Ankle Surgery | DX: B35.1 Tinea unguium (principal); I73.9 Peripheral vascular disease, unspecified | CPT/HCPCS: 11721; 99203 ==

== ENCOUNTER 2024-04-11 17:50 | Inpatient (IN) | payer MEDICARE, MEDICAID, SELFPAY ==
[2024-04-11] VITALS (25 sets, daily range): BP systolic 87–102; BP diastolic 48–72; PULSE 63–75; RESP 11–19; TEMP 36.6; O2SAT 91–96; BMI 41.0
--- NOTE | 2024-04-11 18:00 | XRR_ITS ---
PROCEDURE INFORMATION: Exam: XR Chest Exam date and time: 04/11/2024 6:29 PM Age: 74 years old Clinical indication: Patient HX: AMS. Per family, patient becoming more disoriented and non verbal. TECHNIQUE: Imaging protocol: Radiologic exam of the chest. Views: 1 view. COMPARISON: CR (CHEST, ) 03/05/2023 10:00 PM FINDINGS: Lungs: The lung bases are suboptimally assessed due to technique however the upper lungs are clear of focal consolidation. Retrocardiac ill-defined opacity may be related to atelectasis versus developing pneumonia and follow-up should be obtained. Pleural spaces: Unremarkable. No pleural effusion. No pneumothorax. Heart/Mediastinum: Cardiac silhouette appears normal in size. No obvious vascular congestion. Bones/joints: No acute osseous findings. Other findings: Single view was submitted. XR/XR chest 1V portable [id number] IMPRESSION: Probable retrocardiac opacity as described.
--- NOTE | 2024-04-11 18:00 | CTR_ITS ---
PROCEDURE INFORMATION: Exam: CT Chest With Contrast; Diagnostic Exam date and time: 04/11/2024 9:04 PM Age: 74 years old Clinical indication: Other: Abn cxr; Prior surgery; Surgery date: 6+ months; Surgery type: Colostomy. Hysterectomy. Gb; Patient HX: EMS arrival for leaking fistula. Patient poor historian and family unable to specify exactly where fistula is located. Family states they believe fluid is leaking from umbilicus. Patient scheduled for appt at [facility] next week. ; Additional info: Abn cxr. Leaking fistula, colostomy, altered mental status TECHNIQUE: Imaging protocol: Diagnostic computed tomography of the chest with contrast. Radiation optimization: All CT scans at this facility use at least one of these dose optimization techniques: automated exposure control; mA and/or kV adjustment per patient size (includes targeted exams where dose is matched to clinical indication); or iterative reconstruction. Contrast material: OMNI 350; Contrast volume: 80 ml; Contrast route: INTRAVENOUS (IV); COMPARISON: CR XR chest 1V portable [id number] 04/11/2024 6:29 PM RADIATION DOSE METRICS: Total DLP (mGy-cm): 3328.14 FINDINGS: Lungs: Unremarkable. No consolidation. No masses. Pleural spaces: Unremarkable. No pneumothorax. No pleural effusion. Heart: Minimal cardiomegaly with coronary calcification. No obvious vascular congestion. Lymph nodes: No enlarged lymph nodes. Vasculature: See Heart finding. Bones/joints: No acute findings. Soft tissues: No acute findings. Other findings: Several images are somewhat degraded by artifacts from the patient's arm(s.) PROCEDURE INFORMATION: Exam: CT Abdomen And Pelvis With Contrast Exam date and time: 04/11/2024 9:04 PM Age: 74 years old Clinical indication: Other: Abn cxr; Prior surgery; Surgery date: 6+ months; Surgery type: Colostomy. Hysterectomy. Gb; Patient HX: EMS arrival for leaking fistula. Patient poor historian and family unable to specify exactly where fistula is located. Family states they believe fluid is leaking from umbilicus. Patient scheduled for appt at [facility] next week. ; Additional info: Abn cxr. Leaking fistula, colostomy, altered mental status TECHNIQUE: Imaging protocol: Computed tomography of the abdomen and pelvis with contrast. Radiation optimization: All CT scans at this facility use at least one of these dose optimization techniques: automated exposure control; mA and/or kV adjustment per patient size (includes targeted exams where dose is matched to clinical indication); or iterative reconstruction. Contrast material: OMNI 350; Contrast volume: 80 ml; Contrast route: INTRAVENOUS (IV); COMPARISON: CT abdomen pelvis con [id number] 06/19/2023 11:24 AM RADIATION DOSE METRICS: Total DLP (mGy-cm): 3328.14 FINDINGS: Liver: Mild hepatomegaly with somewhat low-density. No obvious cirrhosis or suspicious mass during portal venous phase. Gallbladder and bile ducts: No abnormal bile duct dilatation. Cholecystectomy clips. Pancreas: Normal. No ductal dilation. Spleen: Normal. No splenomegaly. Adrenal glands: Normal. No mass. Kidneys and ureters: No obstructing calculus. No hydronephrosis. Small hypodense lesion posterior right kidney measuring 4 mm, too small to characterize but are likely simple cysts. Stomach and bowel: Moderate stool burden. There is a midline localized protrusion of anterior small bowel presumably related to the fistula sagittal image 47 axial series 5, image 58. No regional fluid collection is noted. Appendix: No evidence of appendicitis. Intraperitoneal space: Unremarkable. No free air. No significant fluid collection. Vasculature: No abdominal aortic aneurysm. Lymph nodes: No enlarged lymph nodes. Urinary bladder: Nondistended urinary bladder with Thompson balloon in place. Reproductive: Unremarkable as visualized. Bones/joints: No acute fracture. Soft tissues: There is a left lower quadrant ostomy with interval increase/protrusion of intra-abdominal fat and increasing redundancy of the bowel loop within the stoma suggesting worsening of parastomal hernia. No regional bowel dilatation to suggest obstruction or acute inflammatory response. There is a new left paramedian hernia with defect just below and medial the ostomy defect. This hernia contains a small segment of nondilated bowel and fat. Anterior abdominal wall soft tissue haziness/stranding has resolved suggesting interval improvement of postop changes and inflammatory response. There is a persistent right anterior lower quadrant deep subcutaneous collection, now measuring about 2.9 x 2.2 cm demonstrating thick enhancing wall, versus 3.5 x 2[address]/CT chest abdpel w/*[id number] IMPRESSION: 1. No acute thoracic findings. 2. Coronary calcification. IMPRESSION: 1. Comparison CT 06/19/2023. Interval improvement of anterior lower abdominal wall soft tissue edema/inflammatory response. 2. 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 3. Midline inferior ventral localized protrusion of anterior small bowel presumably related to the known fistula. No regional drainable abscess or significant stranding or obstruction. 4. A new left paramedian ventral hernia is noted just inferior and medial to the ostomy as described containing small amount of fat and short segment of bowel without obstruction. 5. Persistent right lower quadrant anterior deep subcutaneous collection with slight interval decrease in size however it demonstrates thick enhancing rim. Continued clinical and imaging follow-up should be obtained. 6. Mild hepatosplenomegaly. Probable hepatic steatosis. 7. No acute abdominopelvic findings otherwise. COMMENTS: Consistent with the [employer]'s Incidental Findings Committee white paper (J Am Naa Radiol 2018): Any incidental renal lesion less than 1 cm or classified as too small to characterize, or any incidental cystic renal lesion characterized as simple-appearing, is likely benign. No follow-up imaging is recommended for these lesions per consensus recommendations based on imaging criteria.
--- NOTE | 2024-04-11 18:02 | W.ED.AMS ---
Documented by User: Mike Randle DO 04/12/24 10:05 HPI - Altered Mental Status General: Chief Complaint: Altered Mental Status Stated Complaint: LEAKING FISTULA Time Seen by Provider: 04/11/24 17:52 History of Present Illness: Patient presents to the ER by EMS with complaints of leaking fistula per EMS. 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 She had multiple abdominal surgeries by a physician in [facility] in [place] but he says there is nothing else that he can do for her. But within the last couple days she is went from alert and oriented x 4 to alert to verbal stimuli. Patient cannot answer any questions but can follow simple commands. Patient does have a colostomy and bandages on her abdomen. Nursing did get the patient to answer simple questions and follow simple commands. Review of Systems General: Reports: ROS unobtainable due to medical condition [facility] ED PFSH: Medical History Acute kidney insufficiency Altered mental status Acute non-ST elevation myocardial infarction (NSTEMI) Abdominal pain Incisional hernia without obstruction or gangrene Pneumonia Fall Acute cystitis Aortic stenosis Hernia Ovarian cancer Bowel obstruction DINA (acute kidney injury) COPD exacerbation Closed head injury GERD (gastroesophageal reflux disease) Dyslipidemia Hypothyroidism COPD (chronic obstructive pulmonary disease) Surgical History H/O: hysterectomy Social History Smoking and tobacco/nicotine status: current every day tobacco/nicotine user Physical Exam Const: COMMON NORMALS: no acute distress, average body habitus, alert and well nourished HENMT: COMMON NORMALS: normocephalic, atraumatic, hearing grossly normal bilaterally, external ears normal, Normal external nose present and moist oral mucous membranes HEAD & SCALP: normocephalic and atraumatic NOSE: Normal external nose present EXTERNAL EAR: Yes external ears normal Eye: COMMON NORMALS: Equal, round and reactive pupils present, EOMs intact bilaterally, conjunctivae normal and no scleral icterus CONJUNCTIVA: Yes conjunctivae normal PUPIL: Yes Equal, round and reactive pupils present Neck/C-Spine: COMMON NORMALS: no JVD Chest: COMMONS NORMALS: normal inspection of the chest and normal palpation of entire chest wall Resp: COMMON NORMALS: normal respiratory effort, No retractions, No use of accessory muscles and clear to auscultation bilaterally AUSCULTATION: clear to auscultation bilaterally Cardio: COMMON NORMALS: no JVD, regular rate, regular rhythm, S1 normal heart sound present, S2 normal heart sound present, No gallops present (Cardio), No clicks present (Cardio) and No murmurs present (Cardio) RATE: regular rate RHYTHM: regular rhythm HEART SOUNDS: S1 normal heart sound present and S2 normal heart sound present GI: COMMON NORMALS: Normal to inspection, nondistended, normoactive bowel sounds present, Soft to palpation, non-tender, No hepatosplenomegaly present and no masses PALPATION: Yes Soft to palpation and Yes No hepatosplenomegaly present OTHER: Colostomy noted bandages noted to abdomen clean dry and intact, bandages removed by nursing and noted whole anterior abdominal wall excoriated, patient has a ostomy type opening in her middle of her abdomen with surgical scarring around it extensively she is oozing liquid stool out of it and is excoriating everything around. This is presumed to be where the fistula is. Neuro: SENSORIUM/ORIENTATION: Yes alert Course Vital Signs: Vital signs: Vital Signs Temperature 97.6 F 04/12/24 09:15 Pulse Rate 53 L 04/12/24 09:15 Respiratory Rate 10 L 04/12/24 09:15 Blood Pressure 96/55 04/12/24 09:15 Pulse Oximetry 95 04/12/24 09:15 Oxygen Delivery Me thod Room Air 04/12/24 04:00 MDM - Altered Mental Status Medical Decision Making Lab work was obtained as well as chest abdomen pelvis CT scan, did show elevated white count 19.9 sodium of 119, potassium 6.0, BUN/creatinine of 83 and 1.7, lactic acid 2.7, UA showed urinary tract infection. Images of the chest abdomen pelvis were pushed to [place]. The fellow on-call looked at the images and we discussed the case. 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 She already has appointment up there on the of this month. Dr. Coronel was consulted who agreed to place patient in the hospital for electrolyte abnormalities and her urinary tract infection. He did want Dr. Brody consulted in case patient was to go downhill and/or need any type of surgical interaction. I spoke to [facility] did get patient accepted there but they have a wait list at today's I spoke to the hospitalist will admit to the ICU here pending bed at [facility] Differential Diagnosis Likely altered mental status Medical Records I reviewed the patient's medical records. Lab Data I reviewed the patient's lab results. 04/11/24 18:46 04/12/24 05:29 Radiology Impressions Chest X-Ray 04/11/24 18:00 IMPRESSION: Probable retrocardiac opacity as described. Chest/Abdomen/Pelvis CT 04/11/24 18:00 IMPRESSION: 1. No acute thoracic findings. 2. Coronary calcification. IMPRESSION: 1. Comparison CT 06/19/2023. Interval improvement of anterior lower abdominal wall soft tissue edema/inflammatory response. 2. 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 3. Midline inferior ventral localized protrusion of anterior small bowel presumably related to the known fistula. No regional drainable abscess or significant stranding or obstruction. 4. A new left paramedian ventral hernia is noted just inferior and medial to the ostomy as described containing small amount of fat and short segment of bowel without obstruction. 5. Persistent right lower quadrant anterior deep subcutaneous collection with slight interval decrease in size however it demonstrates thick enhancing rim. Continued clinical and imaging follow-up should be obtained. 6. Mild hepatosplenomegaly. Probable hepatic steatosis. 7. No acute abdominopelvic findings otherwise. COMMENTS: Consistent with the [employer]'s Incidental Findings Committee white paper (J Am Ana Radiol 2018): Any incidental renal lesion less than 1 cm or classified as too small to characterize, or any incidental cystic renal lesion characterized as simple-appearing, is likely benign. No follow-up imaging is recommended for these lesions per consensus recommendations based on imaging criteria. Laboratory Results WBC 19.91 10^3/uL (3.29-11.43) H 04/11/24 18:46 RBC 4.81 10^6/uL (3.85-5.65) 04/11/24 18:46 Hgb 14.20 g/dL (11.27-16.99) 04/11/24 18:46 Hct 42.7 % (36-47) 04/11/24 18:46 MCV 88.8 fl (85-98) 04/11/24 18:46 MCH 29.5 pg (27-33) 04/11/24 18:46 MCHC 33.3 g/dL (30-55) 04/11/24 18:46 RDW 13.0 % (12.1-15.1) 04/11/24 18:46 Plt Count 556 10^3/cmm (157-399) H 04/11/24 18:46 MPV 9.9 fL (7.4-10.4) 04/11/24 18:46 Neut % (Auto) 78.2 % 04/11/24 18:46 Lymph % (Auto) 13.5 % 04/11/24 18:46 Armstrong % (Auto) 6.6 % 04/11/24 18:46 Eos % (Auto) 0.6 % 04/11/24 18:46 Baso % (Auto) 0.5 % 04/11/24 18:46 Neut # (Auto) 15.58 10^3/uL (1.8-7.7) H 04/11/24 18:46 Lymph # (Auto) 2.7 10^3/uL (0.8-4.8) 04/11/24 18:46 Armstrong # (Auto) 1.3 10^3/uL (0.2-0.9) H 04/11/24 18:46 Eos # (Auto) 0.1 10^3/uL (0.0-0.8) 04/11/24 18:46 Baso # (Auto) 0.1 10^3/uL (0.0-0.1) 04/11/24 18:46 Nucleated RBC % (auto) 0 % 04/11/24 18:46 Nucleated RBCs # 0.0 /100WBC 04/11/24 18:46 Sodium 122 mmol/L (136-145) L 04/12/24 01:04 Potassium 5.6 mmol/L (3.5-5.1) H 04/12/24 01:04 Chloride 88 mmol/L (98-107) L 04/12/24 01:04 Carbon Dioxide 21 mmol/L (22-29) L 04/12/24 01:04 Anion Gap 18.6 (5-19) 04/12/24 01:04 BUN 67 mg/dL (8-23) H 04/12/24 01:04 Creatinine 1.4 mg/dL (0.5-0.9) H 04/12/24 01:04 GFR Calculation Not Reportable 04/12/24 01:04 Glucose 106 mg/dL (65-115) 04/12/24 01:04 Calculated Osmolality 274 mOsm/kg (285-295) L 04/11/24 18:46 Lactic Acid 2.7 mmol/L (0.5-2.2) H 04/11/24 18:46 Lactic Acid (Sepsis) 1.5 mmol/L (0.5-2.2) 04/11/24 21:47 Calcium 7.9 mg/dL (8.5-10.5) L 04/12/24 01:04 Phosphorus 4.8 mg/dL (2.5-4.5) H 04/12/24 01:04 Total Bilirubin 0.2 mg/dL (0.15-1.2) 04/11/24 18:46 AST 34 U/L (0-32) H 04/11/24 18:46 ALT 26 U/L (0-33) 04/11/24 18:46 Alkaline Phosphatase 169 U/L (35-105) H 04/11/24 18:46 Total Protein 8.8 g/dL (6.6-8.7) H 04/11/24 18:46 Albumin 2.8 g/dL (3.5-5.2) L 04/12/24 01:04 Globulin 5.0 g/dL (1.3-4.6) H 04/11/24 18:46 Procalcitonin 0.39 ng/mL (0-0.5) 04/11/24 18:46 TSH 59.27 uIU/mL (0.27-4.20) H 04/11/24 18:46 Urine Color Yellow (Yellow) 04/11/24 20:14 Urine Appearance Cloudy (CLEAR) A 04/11/24 20:14 Urine pH 5 (5-7) 04/11/24 20:14 Ur Specific [place] 1.020 (1.005-1.030) 04/11/24 20:14 Urine Protein Neg (Negative) 04/11/24 20:14 Urine Glucose (UA) Norm (Normal) 04/11/24 20:14 Urine Ketones Negative (Negative) 04/11/24 20:14 Urine Blood Neg (Negative) 04/11/24 20:14 Urine Nitrate Negative (Negative) 04/11/24 20:14 Urine Bilirubin Neg (Negative) 04/11/24 20:14 Urine Urobilinogen Neg mg/dL (Negative) 04/11/24 20:14 Ur Leukocyte Esterase 2+ (Negative) H 04/11/24 20:14 Urine RBC 5-10 /hpf (0-2) H 04/11/24 20:14 Urine WBC 25-40 /hpf (0-5) H 04/11/24 20:14 Ur Squamous Epith Cells 0-4 /hpf (0-5) H 04/11/24 20:14 Calcium Oxalate Crystal 0-4 /hpf H 04/11/24 20:14 Amorphous Sediment 1+ /hpf 04/11/24 20:14 Urine Bacteria 3+ /hpf (NONE) H 04/11/24 20:14 Hyaline Casts 5-10 /lpf H 04/11/24 20:14 Urine Mucus Trace /hpf 04/11/24 20:14 All radiology interpretation(s) finalized by discharge EKG Data EKG 1: I personally reviewed and interpreted this EKG as follows: EKG interpretation date: 04/11/24 EKG interpretation time: 20:43 Interpretation: Ventricular rate 65 bpm, IL interval 150, QRS duration 108, QTc of 427, sinus rhythm with sinus arrhythmia Discharge Plan Discharge Patient Disposition: Admitted As Inpatient Admit Provider: Daniel Coronel Clinical Impression: Altered mental status, Acute hyponatremia, Acute hyperkalemia, Acute kidney insufficiency, Fistula of small intestine Urinary tract infection Qualifiers: Urinary tract infection type: acute cystitis Hematuria presence: with hematuria Qualified Code(s): N30.01 - Acute cystitis with hematuria Hypothyroidism Qualifiers: Hypothyroidism type: unspecified Qualified Code(s): E03.9 - Hypothyroidism, unspecified Condition: Stable Coding Level of Care Code ED Predictive Maintenance Specialist for Chg Fwd Documented by User: Ronn Carr MD 04/12/24 02:40 HPI - Altered Mental Status General: Chief Complaint: Altered Mental Status Stated Complaint: LEAKING FISTULA Time Seen by Provider: 04/11/24 17:52 PFSH ED PFSH: Medical History Acute kidney insufficiency Altered mental status Acute non-ST elevation myocardial infarction (NSTEMI) Abdominal pain Incisional hernia without obstruction or gangrene Pneumonia Fall Acute cystitis Aortic stenosis Hernia Ovarian cancer Bowel obstruction DINA (acute kidney injury) COPD exacerbation Closed head injury GERD (gastroesophageal reflux disease) Dyslipidemia Hypothyroidism COPD (chronic obstructive pulmonary disease) Surgical History H/O: hysterectomy Social History Smoking and tobacco/nicotine status: current every day tobacco/nicotine user Course Vital Signs: Vital signs: Vital Signs Temperature 97.6 F 04/12/24 09:15 Pulse Rate 53 L 04/12/24 09:15 Respiratory Rate 10 L 04/12/24 09:15 Blood Pressure 96/55 04/12/24 09:15 Pulse Oximetry 95 04/12/24 09:15 Oxygen Delivery Me thod Room Air 04/12/24 04:00 MDM - Altered Mental Status Medical Decision Making Lab work was obtained as well as chest abdomen pelvis CT scan, did show elevated white count 19.9 sodium of 119, potassium 6.0, BUN/creatinine of 83 and 1.7, lactic acid 2.7, UA showed urinary tract infection. Images of the chest abdomen pelvis were pushed to Alejo. The fellow on-call looked at the images and we discussed the case. 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 She already has appointment up there on the of this month. Dr. Coronel was consulted who agreed to place patient in the hospital for electrolyte abnormalities and her urinary tract infection. He did not Dr. Brody consulted and case patient was to go downhill and/or need any type of surgical interaction. I spoke to [facility] did get patient accepted there but they have a wait list at today's I spoke to the hospitalist will admit to the ICU here pending bed at [facility] Lab Data 04/11/24 18:46 04/12/24 05:29 Radiology Impressions Chest X-Ray 04/11/24 18:00 IMPRESSION: Probable retrocardiac opacity as described. Chest/Abdomen/Pelvis CT 04/11/24 18:00 IMPRESSION: 1. No acute thoracic findings. 2. Coronary calcification. IMPRESSION: 1. Comparison CT 06/19/2023. Interval improvement of anterior lower abdominal wall soft tissue edema/inflammatory response. 2. 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 3. Midline inferior ventral localized protrusion of anterior small bowel presumably related to the known fistula. No regional drainable abscess or significant stranding or obstruction. 4. A new left paramedian ventral hernia is noted just inferior and medial to the ostomy as described containing small amount of fat and short segment of bowel without obstruction. 5. Persistent right lower quadrant anterior deep subcutaneous collection with slight interval decrease in size however it demonstrates thick enhancing rim. Continued clinical and imaging follow-up should be obtained. 6. Mild hepatosplenomegaly. Probable hepatic steatosis. 7. No acute abdominopelvic findings otherwise. COMMENTS: Consistent with the [employer]'s Incidental Findings Committee white paper (J Am Ana Radiol 2018): Any incidental renal lesion less than 1 cm or classified as too small to characterize, or any incidental cystic renal lesion characterized as simple-appearing, is likely benign. No follow-up imaging is recommended for these lesions per consensus recommendations based on imaging criteria. Laboratory Results WBC 19.91 10^3/uL (3.29-11.43) H 04/11/24 18:46 RBC 4.81 10^6/uL (3.85-5.65) 04/11/24 18:46 Hgb 14.20 g/dL (11.27-16.99) 04/11/24 18:46 Hct 42.7 % (36-47) 04/11/24 18:46 MCV 88.8 fl (85-98) 04/11/24 18:46 MCH 29.5 pg (27-33) 04/11/24 18:46 MCHC 33.3 g/dL (30-55) 04/11/24 18:46 RDW 13.0 % (12.1-15.1) 04/11/24 18:46 Plt Count 556 10^3/cmm (157-399) H 04/11/24 18:46 MPV 9.9 fL (7.4-10.4) 04/11/24 18:46 Neut % (Auto) 78.2 % 04/11/24 18:46 Lymph % (Auto) 13.5 % 04/11/24 18:46 Armstrong % (Auto) 6.6 % 04/11/24 18:46 Eos % (Auto) 0.6 % 04/11/24 18:46 Baso % (Auto) 0.5 % 04/11/24 18:46 Neut # (Auto) 15.58 10^3/uL (1.8-7.7) H 04/11/24 18:46 Lymph # (Auto) 2.7 10^3/uL (0.8-4.8) 04/11/24 18:46 Armstrong # (Auto) 1.3 10^3/uL (0.2-0.9) H 04/11/24 18:46 Eos # (Auto) 0.1 10^3/uL (0.0-0.8) 04/11/24 18:46 Baso # (Auto) 0.1 10^3/uL (0.0-0.1) 04/11/24 18:46 Nucleated RBC % (auto) 0 % 04/11/24 18:46 Nucleated RBCs # 0.0 /100WBC 04/11/24 18:46 Sodium 122 mmol/L (136-145) L 04/12/24 01:04 Potassium 5.6 mmol/L (3.5-5.1) H 04/12/24 01:04 Chloride 88 mmol/L (98-107) L 04/12/24 01:04 Carbon Dioxide 21 mmol/L (22-29) L 04/12/24 01:04 Anion Gap 18.6 (5-19) 04/12/24 01:04 BUN 67 mg/dL (8-23) H 04/12/24 01:04 Creatinine 1.4 mg/dL (0.5-0.9) H 04/12/24 01:04 GFR Calculation Not Reportable 04/12/24 01:04 Glucose 106 mg/dL (65-115) 04/12/24 01:04 Calculated Osmolality 274 mOsm/kg (285-295) L 04/11/24 18:46 Lactic Acid 2.7 mmol/L (0.5-2.2) H 04/11/24 18:46 Lactic Acid (Sepsis) 1.5 mmol/L (0.5-2.2) 04/11/24 21:47 Calcium 7.9 mg/dL (8.5-10.5) L 04/12/24 01:04 Phosphorus 4.8 mg/dL (2.5-4.5) H 04/12/24 01:04 Total Bilirubin 0.2 mg/dL (0.15-1.2) 04/11/24 18:46 AST 34 U/L (0-32) H 04/11/24 18:46 ALT 26 U/L (0-33) 04/11/24 18:46 Alkaline Phosphatase 169 U/L (35-105) H 04/11/24 18:46 Total Protein 8.8 g/dL (6.6-8.7) H 04/11/24 18:46 Albumin 2.8 g/dL (3.5-5.2) L 04/12/24 01:04 Globulin 5.0 g/dL (1.3-4.6) H 04/11/24 18:46 Procalcitonin 0.39 ng/mL (0-0.5) 04/11/24 18:46 TSH 59.27 uIU/mL (0.27-4.20) H 04/11/24 18:46 Urine Color Yellow (Yellow) 04/11/24 20:14 Urine Appearance Cloudy (CLEAR) A 04/11/24 20:14 Urine pH 5 (5-7) 04/11/24 20:14 Ur Specific [place] 1.020 (1.005-1.030) 04/11/24 20:14 Urine Protein Neg (Negative) 04/11/24 20:14 Urine Glucose (UA) Norm (Normal) 04/11/24 20:14 Urine Ketones Negative (Negative) 04/11/24 20:14 Urine Blood Neg (Negative) 04/11/24 20:14 Urine Nitrate Negative (Negative) 04/11/24 20:14 Urine Bilirubin Neg (Negative) 04/11/24 20:14 Urine Urobilinogen Neg mg/dL (Negative) 04/11/24 20:14 Ur Leukocyte Esterase 2+ (Negative) H 04/11/24 20:14 Urine RBC 5-10 /hpf (0-2) H 04/11/24 20:14 Urine WBC 25-40 /hpf (0-5) H 04/11/24 20:14 Ur Squamous Epith Cells 0-4 /hpf (0-5) H 04/11/24 20:14 Calcium Oxalate Crystal 0-4 /hpf H 04/11/24 20:14 Amorphous Sediment 1+ /hpf 04/11/24 20:14 Urine Bacteria 3+ /hpf (NONE) H 04/11/24 20:14 Hyaline Casts 5-10 /lpf H 04/11/24 20:14 Urine Mucus Trace /hpf 04/11/24 20:14 Discharge Plan Discharge Patient Disposition: Admitted As Inpatient Admit Provider: Daniel Coronel Clinical Impression: Altered mental status, Acute hyponatremia, Acute hyperkalemia, Acute kidney insufficiency, Fistula of small intestine Urinary tract infection Qualifiers: Urinary tract infection type: acute cystitis Hematuria presence: with hematuria Qualified Code(s): N30.01 - Acute cystitis with hematuria Hypothyroidism Qualifiers: Hypothyroidism type: unspecified Qualified Code(s): E03.9 - Hypothyroidism, unspecified Condition: Stable Coding Level of Care Code ED Predictive Maintenance Specialist for Brendan Peralta
[2024-04-11 19:13] LABS: Basophils # 0.1 10^3/uL (0.0-0.1); Basophils % 0.5 %; Eosinophils # 0.1 10^3/uL (0.0-0.8); Eosinophils % 0.6 %; Hematocrit 42.7 % (36-47); Lymphocytes # 2.7 10^3/uL (0.8-4.8); Lymphocytes % 13.5 %; Mean Corpuscular HGB Conc 33.3 g/dL (30-55); Mean Corpuscular Hemoglobin 29.5 pg (27-33); Mean Corpuscular Volume 88.8 fl (85-98); Mean Platelet Volume 9.9 fL (7.4-10.4); Monocytes # 1.3 10^3/uL (0.2-0.9); Monocytes % 6.6 %; Neutrophils # 15.58 10^3/uL (1.8-7.7); Neutrophils % 78.2 %; Nucleated Red Blood Cells % 0 %; Platelet Count 556 10^3/cmm (157-399); Red Blood Count 4.81 10^6/uL (3.85-5.65); White Blood Count 19.91 10^3/uL (3.29-11.43)
[2024-04-11 19:36] LABS: Lactic Sepsis W/Reflex 2.7 mmol/L (0.5-2.2)
[2024-04-11 19:47] LABS: Procalcitonin 0.39 ng/mL (0-0.5); Thyroid Stimulating Hormone 59.27 uIU/mL (0.27-4.20)
[2024-04-11] MEDS: sodium chloride 0.9% 1,000 ML 999 ML IV (19:54)
[2024-04-11 19:58] LABS: Alanine Aminotransferase 26 U/L (0-33); Albumin Level 3.8 g/dL (3.5-5.2); Alkaline Phosphatase 169 U/L (35-105); Aspartate Amino Transferase 34 U/L (0-32); Calcium 9.7 mg/dL (8.5-10.5); Carbon Dioxide 21 mmol/L (22-29); Chloride 80 mmol/L (98-107); Creatinine Clr Calc Pharmacy 30.4299; Glucose 115 mg/dL (65-115); Osmolality Calculated 274 mOsm/kg (285-295); Total Bilirubin 0.2 mg/dL (0.15-1.2); Total Protein 8.8 g/dL (6.6-8.7)
[2024-04-11 20:00] LABS: Blood Urea Nitrogen 83 mg/dL (8-23); Sodium 119 mmol/L (136-145)
--- NOTE | 2024-04-11 20:03 | ECG_ITS ---
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 Measurements Intervals [place] Rate: 65 P: 38 NH: 150 QRS: -12 QRSD: 108 T: 110 QT: 416 QTc: 433 Interpretive Statements SINUS RHYTHM WITH SINUS ARRHYTHMIA LEFT VENTRICULAR HYPERTROPHY AND ST-T CHANGE [VOLTAGE CRITERIA PLUS ST/T ABNORMALITY] POSSIBLE ANTERIOR MYOCARDIAL INFARCTION , OF INDETERMINATE AGE [30 ms Q WAVE IN V3/V4, OR R < 0.2 mV IN V4] Compared to ECG 06/19/2023 10:45:01 ST (T wave) deviation now present Sinus bradycardia no longer present Myocardial infarct finding still present Electronically Signed On 04-12-2024 20:27:33 CDT by Chante Lopez M.D. [id number]
[2024-04-11 20:40] LABS: Add Urine Microscopic? YES; Bilirubin Urine Neg (Negative); Blood Urine Neg (Negative); Glucose Urine UA Norm (Normal); Ketones Urine Negative (Negative); Leukocyte Esterase Urine 2+ (Negative); Nitrate Urine Negative (Negative); Protein Urine Neg (Negative); Urine Appearance Cloudy (CLEAR); Urine Color Yellow (Yellow); Urobilinogen Urine Neg (Negative); pH Urine 5 (5-7)
[2024-04-11 20:41] LABS: Add Urine Culture? Yes; Amorphous Sediment Urine 1+ /hpf; Bacteria Urine 3+ /hpf; Calcium Oxalate Crystals Urine 0-4 /hpf; Mucus Urine TRACE /hpf; Squamous Epithelial Cell Urine 0-4 /hpf (0-5); WBC Urine 25-40 /hpf (0-5)
[2024-04-11 20:56] LABS: Reflex Lactate Order REFLEX LACTIC ORDERD
[2024-04-11] MEDS: iohexol 350 mg/mL 500 mL Btl (per mL) IV (21:05)
[2024-04-11] MEDS: piperacillin-tazobactam 3.375 GM in sodium chloride 0.9% (plus) 50 ML IV (21:48)
[2024-04-11] MEDS: sodium chloride 0.9% 1,000 ML 250 ML IV (21:48)
[2024-04-11 22:13] LABS: Lactic Acid level (Lactate) 1.5 mmol/L (0.5-2.2)
--- NOTE | 2024-04-11 22:53 | PM.HP ---
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 Patient is unable to provide any history on exam. Her 2 daughters at bedside and supportive. They help provide collateral information. They noticed that she was confused about 2 days ago. Progressively worsened over the past 2 days. They report that she has not interacting as she typically would. She follows at [facility] for her abdominal pathology. They reports she was post have surgery in 10 days to address her enterocutaneous fistula. In the emergency department, blood pressure was found to be soft at 87/54. Labs revealed leukocytosis to 19.91, thrombocytosis to 556, severe hyponatremia to 119, hyperkalemia to 6.0, hypochloremia at 80, metabolic acidosis with bicarb of 21, azotemia with BUN 83, elevated creatinine to 1.7, lactic acidosis to 2.7 and mildly elevated AST and alkaline phos. Urinalysis revealed 2+ leukocyte esterase, 25-40 WBCs, nitrite negative. TSH was markedly elevated at 55.27. Daughter reports has been on Synthroid they believe she is taking it as appropriate. General surgery consulted prior to consideration of admission. General surgery recommended transfer to tertiary care center for higher level of care of her enterocutaneous fistula with leak. Patient accepted to [facility]. She is pending bed. She will board with the hospitalist service for continued care while awaiting bed. Review of Systems Narrative: Attempted to obtain a complete review of systems, unable to due to patient's super status. Medications/Allergies Home Medications Medication Instructions Recorded Confirmed Last Taken Type famotidine 20 mg tablet 20 mg PO BID 12/06/21 03/03/24 06/19/23 History venlafaxine 75 mg capsule,extended 75 mg PO QAM 12/06/21 03/03/24 06/19/23 History release 24 hr donepezil 10 mg tablet 10 mg PO BEDTIME 03/06/23 03/03/24 06/18/23 History levothyroxine 125 mcg tablet 125 mcg PO QAM 03/06/23 03/03/24 06/19/23 History Lactobacillus acidophilus 10 10,000 mmu cells PO DAILY 06/19/23 03/03/24 06/19/23 History billion cell capsule (Probiotic) acetaminophen 325 mg capsule 650 mg PO QID PRN Pain 06/19/23 03/03/24 Unknown History amoxicillin 875 mg-potassium 1 tab PO BID 06/19/23 03/03/24 06/19/23 History clavulanate 125 mg tablet aspirin 81 mg tablet,delayed 81 mg PO DAILY 06/19/23 03/03/24 06/19/23 History release fluconazole 200 mg tablet 400 mg PO DAILY 06/19/23 03/03/24 06/19/23 History polysaccharide iron complex 150 mg 150 mg PO DAILY 06/19/23 03/03/24 06/19/23 History iron capsule (Ferrex) risperidone 0.5 mg tablet 0.5 mg PO BID 06/19/23 03/03/24 06/19/23 History Allergies Allergy/AdvReac Type Severity Reaction Status Date / Time Latex, Natural Rubber Allergy Unknown unknown Verified 04/11/24 18:13 tomato Allergy Unknown unknown Verified 04/11/24 18:13 PFSH Acute PFSH: Medical History Acute kidney insufficiency Altered mental status Acute non-ST elevation myocardial infarction (NSTEMI) Abdominal pain Incisional hernia without obstruction or gangrene Pneumonia Fall Acute cystitis Aortic stenosis Hernia Ovarian cancer Bowel obstruction DINA (acute kidney injury) COPD exacerbation Closed head injury GERD (gastroesophageal reflux disease) Dyslipidemia Hypothyroidism COPD (chronic obstructive pulmonary disease) Surgical History H/O: hysterectomy Social History Smoking and tobacco/nicotine status: current every day tobacco/nicotine user Vitals/I&O/Wt Last Vital Signs Temp 97.8 F 04/11/24 17:57 Pulse 66 04/11/24 22:15 Resp 14 04/11/24 22:15 BP 91/56 04/11/24 22:15 Pulse Ox 91 04/11/24 22:15 O2 Del Method Room Air 04/11/24 21:30 04/11/24 04/11/24 04/11/24 06:59 14:59 22:59 Intake Total 1000 / 1000 Balance 1000 / 1000 Weight last 48 hrs Weight 95.254 kg Physical Exam Narrative: General: Patient is in a stuporous state. Head: Normocephalic. Atraumatic. EOM intact. Neck: No JVD. Cardiovascular: 4+ systolic ejection murmur. No gallops. No rubs. Lungs: Breath sounds diminished bilateral bases. No wheezing. No crackles. No rhonchi. On room air. Skin: Marked erythema and skin breakdown on abdomen abdomen surrounding enterocutaneous fistula site. Candidiasis in skin folds. Abdomen: Multiple chronic appearing deformities. Hypoactive bowel sounds. Ostomy present. Fistula is present. Significant erythema and inflammation surrounding fistula site. Extremities: No cyanosis or clubbing. Musculoskeletal: No swollen or erythematous joints. Neurological: Moves all 4 extremities. No myoclonus. Stuporous state. Urinary Catheter Management: Thompson: Cath Placed During This Visit: yes Urinary Catheter Date of Insertion: 04/11/24 Urinary Catheter Time of Insertion: 20:17 Data 04/11/24 18:46 04/12/24 01:04 Micro: Microbiology 04/11/24 18:46 Blood Culture - Preliminary Blood SPECIMEN COLLECTED 04/11/24 18:33 Blood Culture - Preliminary Blood SPECIMEN COLLECTED A&P Assessment and plan (1) Sepsis: Presentation consistent with severe sepsis Source: UTI versus cellulitis of abdomen Endorgan damage: Encephalopathy, acute kidney injury, severe hyponatremia, hyperkalemia, lactic acidosis Follow-up blood and urine cultures She received 1 L IV fluid bolus followed by NS at 250 mL/h for several hours Will continue with bolusing until full 30 mL/kg body weight is administered Monitor hemodynamic state closely Start vancomycin for MRSA coverage MRSA screening ordered Continue Zosyn as she needs good anaerobic coverage given abdominal pathology (2) Acute hyponatremia: Severe hyponatremia initially of 119 Repeat after NS boluses, sodium is at 122 Continue IV fluids, plan to adjust rate after 30 mL/kg bw Trend renal function every 4 hours for now Avoid overcorrection (3) Fistula of small intestine: She initially had plans for outpatient fixation of Alejo in 10 days She is now on the transfer list to transfer to [facility] when beds available Monitor fistula output General surgery has evaluated, appreciate recommendations (4) Urinary tract infection: Follow urine culture Broad-spectrum antibiotics as above Qualifiers: Hematuria presence: with hematuria Urinary tract infection type: acute cystitis Qualified Code(s): N30.01 - Acute cystitis with hematuria (5) Acute encephalopathy: Acute metabolic encephalopathy Treat underlying infection and optimize electrolytes Avoid sedating medications Neurochecks Supportive care (6) Acute hyperkalemia: Suspect hyperkalemia is related to her decreased renal function Telemetry monitoring Plan for Kayexalate if she is able to take orals medications by a.m. Trend renal panel (7) DINA (acute kidney injury): Acute kidney injury likely prerenal in the setting of sepsis Receiving IV fluid resuscitation Renally dose medications Strict I's and O's Daily weights (8) Hypothyroidism: TSH 59.27, free T4 is currently pending Daughters believes she is receiving the medication early in the morning at the facility Will need to confirm the dose that she is getting and how she is getting it For now, will start IV Synthroid pending free T4 level due to altered mentation Qualifiers: Hypothyroidism type: unspecified Qualified Code(s): E03.9 - Hypothyroidism, unspecified (9) GERD (gastroesophageal reflux disease): Continue famotidine (10) Dementia: Continue home donepezil Continue home risperidone Plan DVT prophylaxis: CODE STATUS: DNR Attestations Medical Necessity Statement*: Patient presents with altered mental status, found to have acute metabolic encephalopathy with severe sepsis likely from urinary versus abdominal cellulitis with severe electrolyte abnormalities with expected hospitalization to cross at least 2 midnights for treatment of underlying severe sepsis, electrolyte treatment, and supportive care. Critical Care Time: The high probability of a clinically significant, sudden or life threatening deterioration of the patient's neurologic, renal, electrolyte, cardiovascular system(s) required my full and direct attention, intervention and personal management. The critical care time is as shown. This time is in addition to time spent performing any reported procedures but includes the following: [x] Data and vital sign review and interpretation [x] Patient assessment, examination and intervention [x] Documentation [x] Medication orders and management Critical Care Time (min): 60 Coding Level of Care Code Acute Code for [facility] Fwd Diagnoses Sepsis A41.9 Acute hyponatremia E87.1 Fistula of small intestine K63.2 Urinary tract infection N30.01 Hematuria presence: with hematuria Urinary tract infection type: acute cystitis Acute encephalopathy G93.40 Acute hyperkalemia E87.5 DINA (acute kidney injury) N17.9 Hypothyroidism E03.9 Hypothyroidism type: unspecified GERD (gastroesophageal reflux disease) K21.9 Dementia F03.90
[2024-04-12] VITALS (74 sets, daily range): BP systolic 79–130; BP diastolic 38–75; PULSE 49–71; RESP 9–20; TEMP 36.4–37.2; O2SAT 90–99; BMI 36.6
--- NOTE | 2024-04-12 00:43 | PC.NURSE ---
This resume writer and another nurse cleansed pt's skin on her abd from the stool and fluids leaking from her fistula. abd pads replaced, barrier cream placed on all excoriated areas apart from the skin directly around the fistula d/t c/o pain/burning from pt. sheets and gown changed. Pt started resting with eyes closed immediately after completion with no complaints.
--- NOTE | 2024-04-12 00:45 | PC.NURSE ---
Report given to Dayanna Baldwin RN, she now assumes care of this pt.
[2024-04-12 01:25] LABS: Albumin Level 2.8 g/dL (3.5-5.2); Blood Urea Nitrogen 67 mg/dL (8-23); Calcium 7.9 mg/dL (8.5-10.5); Carbon Dioxide 21 mmol/L (22-29); Chloride 88 mmol/L (98-107); Creatinine Clr Calc Pharmacy 36.9506; Glucose 106 mg/dL (65-115); Phosphorus 4.8 mg/dL (2.5-4.5); Sodium 122 mmol/L (136-145)
[2024-04-12 01:26] LABS: Anion Gap 18.6 (5-19); Potassium 5.6 mmol/L (3.5-5.1)
[2024-04-12] MEDS: sodium chloride 0.9% 1,000 ML 250 ML IV ×4 (01:43→14:56)
--- NOTE | 2024-04-12 01:52 | P.CONIM_ITS ---
Providers/Reason For Consult 2 Consulting Physician/Specialty*: General surgery Reason for Consult*: Evaluation of enterocutaneous fistula Primary Care Provider: Everette Harmon Jr, MD History of Present Illness History of Present Illness Paulina Kraus is a 74 year old female with a very complex history including major abdominal surgery, ostomy creation, complex abdominal wall reconstruction complicated by enterocutaneous fistula that has had a very protracted course for the last year. She presents today to the hospital with altered mental status fine to have hyponatremia and a UTI. Patient is being admitted to the medical service for management of the hyponatremia and UTI and I was asked to provide input regarding any additional need for care in our hospital during this hospital stay. Of note patient has a appointment in [place] next week for evaluation for possible repair of this fistula. Review of Systems 2 General: Reports: ROS unobtainable due to medical condition and ROS unobtainable due to mental status Medications/Allergies Home Medications Medication Instructions Recorded Confirmed Last Taken Type famotidine 20 mg tablet 20 mg PO BID 12/06/21 03/03/24 06/19/23 History venlafaxine 75 mg capsule,extended 75 mg PO QAM 12/06/21 03/03/24 06/19/23 History release 24 hr donepezil 10 mg tablet 10 mg PO BEDTIME 03/06/23 03/03/24 06/18/23 History levothyroxine 125 mcg tablet 125 mcg PO QAM 03/06/23 03/03/24 06/19/23 History Lactobacillus acidophilus 10 10,000 mmu cells PO DAILY 06/19/23 03/03/24 06/19/23 History billion cell capsule (Probiotic) acetaminophen 325 mg capsule 650 mg PO QID PRN Pain 06/19/23 03/03/24 Unknown History amoxicillin 875 mg-potassium 1 tab PO BID 06/19/23 03/03/24 06/19/23 History clavulanate 125 mg tablet aspirin 81 mg tablet,delayed 81 mg PO DAILY 06/19/23 03/03/24 06/19/23 History release fluconazole 200 mg tablet 400 mg PO DAILY 06/19/23 03/03/24 06/19/23 History polysaccharide iron complex 150 mg 150 mg PO DAILY 06/19/23 03/03/24 06/19/23 History iron capsule (Ferrex) risperidone 0.5 mg tablet 0.5 mg PO BID 06/19/23 03/03/24 06/19/23 History Allergies Allergy/AdvReac Type Severity Reaction Status Date / Time Latex, Natural Rubber Allergy Unknown unknown Verified 04/11/24 18:13 tomato Allergy Unknown unknown Verified 04/11/24 18:13 Current Medications Generic Name Dose Route Start Last Admin Trade Name Freq PRN Reason Stop Dose Admin Sodium Chloride 1,000 mls @ 250 mls/hr 04/11/24 21:45 04/12/24 01:43 Sodium Chloride 0.9% IV Infused .Q4H VELIA Infusion PFSH Acute 2 PFSH: Medical History Hernia Ovarian cancer Bowel obstruction DINA (acute kidney injury) COPD exacerbation Closed head injury GERD (gastroesophageal reflux disease) Dyslipidemia Hypothyroidism COPD (chronic obstructive pulmonary disease) Surgical History H/O: hysterectomy Social History Smoking and tobacco/nicotine status: current every day tobacco/nicotine user Vitals/I&O/Wt Last Vital Signs Temp 97.8 F 04/11/24 17:57 Pulse 63 04/12/24 01:45 Resp 13 04/12/24 01:45 BP 105/62 04/12/24 01:45 Pulse Ox 94 04/12/24 01:45 O2 Del Method Room Air 04/12/24 01:45 04/11/24 04/11/24 04/12/24 14:59 22:59 06:59 Intake Total 1050 / 1050 1000 / 2050 Balance 1050 / 1050 1000 / 2050 Weight last 48 hrs Weight 210 lb Physical Exam 2 Narrative: Patient is somnolent GI: OTHER: abdomen is soft and nontender at this moment, on the left hemiabdomen ostomy is noted, on the midline there is a large area of excoriation and ulceration of the superficial dermis in the middle of this crater there is a enterocutaneous fistula that had 2 areas of output 1 superior and 1 inferior and then's leaking enteric content. There is no current fistula management system at that level, which is producing significant irritation in the skin. Urinary Catheter Management: Thompson: Cath Placed During This Visit: yes Urinary Catheter Date of Insertion: 04/11/24 Urinary Catheter Time of Insertion: 20:17 Data 04/11/24 18:46 04/12/24 01:04 Micro: Microbiology 04/11/24 18:46 Blood Culture - Preliminary Blood SPECIMEN COLLECTED 04/11/24 18:33 Blood Culture - Preliminary Blood SPECIMEN COLLECTED A&P Assessment and plan (1) Incisional hernia without obstruction or gangrene: (2) Fistula of small intestine: Plan This is a 74-year-old female presenting with sepsis due to UTI and hyponatremia in the setting of type output enterocutaneous fistula. Patient has a very complex surgical history, her abdomen appears to be very hostile has multiple fistulous tracts as well as an ostomy and multiple ventral hernias. Patient has been evaluated by the hospitalist team for management of the current clinical status but since the patient has a complex abdominal history I was asked to provide my opinion. After evaluating the patient it is apparent that in the case of need of any kind of surgical intervention that is not something that can be done in our hospital and not our level of care, patient should only receive surgical intervention in the highest level of care at the [facility] by expert colorectal surgeons. Regarding the management of her current fistula, no current containment is noted on the skin which is causing excoriation of the skin. Patient will also benefit to be transferred to a higher level of care where there is ostomy nurse availability and where advance wound care can be provided to provide control of the leakage of the fistula into the skin and therefore facilitate the healing and improvement of her clinical condition. I cannot provide the scan of wound care in our institution at this time as it requires a specialized training. With this consideration the most appropriate level of care for this patient will be probably [facility]. Have discussed with the emergency department and they have informed me that the patient is in the eighth now in the wait list to be transferred to [place]. In the interim she is going to be admitted to the medical team to receive medical management of her sepsis and UTI. No further intervention will be considered during this admission from the general surgery standpoint. Daily wound care should be continued by bedside nurse. I discussed this findings with the patient and family members 5 members show understanding and agree with my assessment. Coding Level of Care Code 44435 Diagnoses Incisional hernia without obstruction or gangrene K43.2 Fistula of small intestine K63.2
[2024-04-12] MEDS: piperacillin-tazobactam 3.375 GM in sodium chloride 0.9% (plus) 50 ML IV ×2 (03:51→12:39)
[2024-04-12] MEDS: heparin 5,000 unit/mL INJ 1 mL 5000 UNIT SUBCUT ×2 (04:11→15:53)
[2024-04-12] MEDS: vancomycin 1,250 MG/250 ML PIGGYBACK 250 MG IV ×2 (04:11→22:42)
--- NOTE | 2024-04-12 05:57 | PC.NURSE ---
Patient with excoriated abd fold, involving fistula, draining green stool material. Patient without drainage from ostomy bag site. Abd pads and 4x4 to leaking fistula sites x 2 - unable to tape in place or place drainage bag due to excoriation.
[2024-04-12 06:15] LABS: Albumin Level 2.8 g/dL (3.5-5.2); Anion Gap 17.5 (5-19); Blood Urea Nitrogen 55 mg/dL (8-23); Calcium 7.7 mg/dL (8.5-10.5); Carbon Dioxide 21 mmol/L (22-29); Chloride 93 mmol/L (98-107); Glucose 96 mg/dL (65-115); Phosphorus 3.9 mg/dL (2.5-4.5); Potassium 4.5 mmol/L (3.5-5.1); Sodium 127 mmol/L (136-145)
[2024-04-12 06:22] LABS: Free T4 Free Thyroxine 0.77 ng/dL (0.82-1.77)
[2024-04-12 06:46] LABS: Creatinine Clr Calc Pharmacy 40.3944
[2024-04-12 06:48] LABS: Creatine Phosphokinase 852 U/L (26-192)
[2024-04-12] MEDS: fluconazole 100 mg Tablet 400 MG PO (08:10)
[2024-04-12] MEDS: famotidine 20 mg Tablet PO ×2 (08:11→17:47)
[2024-04-12] MEDS: iron polysaccharide complex 150 mg Capsule PO (08:11)
[2024-04-12] MEDS: risperiDONE 0.25 mg Tablet 0.5 MG PO ×2 (08:11→17:47)
[2024-04-12] MEDS: levothyroxine 100 mcg SDV 125 MCG IVP (08:11)
[2024-04-12] MEDS: venlafaxine ER (24HR) 75 mg Capsule PO (08:11)
[2024-04-12] MEDS: aspirin 81 mg EC Tablet PO (08:11)
--- NOTE | 2024-04-12 09:40 | PC.NURSE ---
copious amount of yellow stool oozing from abdomen where fistula has formed. I used 4 gauze pads and 3 abd pads to soak up stool after removing the soaked gauze.
--- NOTE | 2024-04-12 09:49 | PC.NURSE ---
abdominal fistula weeping sites - gauze replaced with 8 4x4 sponges.
--- NOTE | 2024-04-12 10:46 | P.MISC_ITS ---
Miscellaneous Note Note: seen today pt accepted to [facility], awaiting bed vitals stable at this time
--- NOTE | 2024-04-12 10:46 | PM.MISC ---
Miscellaneous Note Note: seen today pt accepted to [facility], awaiting bed vitals stable at this time
--- NOTE | 2024-04-12 11:08 | PC.NURSE ---
abdominal gauze changed due to being soak in about 30ml of stool. 1 4x4 10 pk used.
[2024-04-12 11:55] LABS: Albumin Level 2.8 g/dL (3.5-5.2); Anion Gap 13.3 (5-19); Blood Urea Nitrogen 45 mg/dL (8-23); Calcium 7.8 mg/dL (8.5-10.5); Carbon Dioxide 23 mmol/L (22-29); Chloride 98 mmol/L (98-107); Creatinine Clr Calc Pharmacy 53.8592; Glucose 90 mg/dL (65-115); Phosphorus 3.8 mg/dL (2.5-4.5); Potassium 4.3 mmol/L (3.5-5.1); Sodium 130 mmol/L (136-145)
--- NOTE | 2024-04-12 13:47 | PC.NURSE ---
Patient continues to leak stool from abdomen. I change it almost hourly. The last change I did had about 50ml of stool out. I chnaged the dressings soakng up the stool and changes patient's gown and bed linens.
[2024-04-12 15:39] LABS: Albumin Level 2.5 g/dL (3.5-5.2); Blood Urea Nitrogen 34 mg/dL (8-23); Calcium 7.3 mg/dL (8.5-10.5); Carbon Dioxide 20 mmol/L (22-29); Chloride 101 mmol/L (98-107); Creatinine Clr Calc Pharmacy 60.5916; Glucose 85 mg/dL (65-115); Phosphorus 3.2 mg/dL (2.5-4.5); Sodium 132 mmol/L (136-145)
--- NOTE | 2024-04-12 15:41 | PC.NURSE ---
NS changed to 125hr per telephone conversation with Dr. Tineo who also told me to start levophed on patient due to declining blood pressures.
[2024-04-12 15:43] LABS: Anion Gap 15.3 (5-19); Potassium 4.3 mmol/L (3.5-5.1)
[2024-04-12] MEDS: norepinephrine 4 MG/250 ML BAG 11 MG IV (15:53)
[2024-04-12] MEDS: sodium chloride 0.9% 1,000 ML 125 ML IV (17:47)
[2024-04-12] MEDS: piperacillin-tazobactam 3.375 GM in sodium chloride 0.9% (plus) 100 ML IV (17:52)
[2024-04-12] MEDS: acetaminophen 325 mg Tablet 650 MG PO (18:04)
[2024-04-12] MEDS: sennosides 8.6 mg Tablet 17.1999999999999993 MG PO (20:07)
[2024-04-12] MEDS: donepezil 5 MG Tablet 10 MG PO (20:07)
--- NOTE | 2024-04-12 21:35 | XRR_ITS ---
PROCEDURE INFORMATION: Exam: XR Chest Exam date and time: 04/12/2024 9:40 PM Age: 74 years old Clinical indication: Device placement; Patient HX: Left picc confirmation TECHNIQUE: Imaging protocol: Radiologic exam of the chest. Views: 1 view. COMPARISON: CT chest abdpel w/*[id number] 04/11/2024 9:04 PM FINDINGS: Tubes, catheters and devices: Left upper extremity PICC in place terminating in the region of the cavoatrial junction. Lungs: Mild interstitial prominence, likely chronic. No consolidation. Pleural spaces: No pleural effusion or pneumothorax. Heart/Mediastinum: Heart size is within normal limits. Vasculature: Atherosclerotic calcifications of the aorta are noted. Bones/joints: No acute osseous abnormalities are seen. XR/XR chest 1V portable [id number] IMPRESSION: Left upper extremity PICC in radiographically appropriate position.
--- NOTE | 2024-04-12 21:53 | PC.NURSE ---
Dr. Coronel contacted for orders for PICC line due to patient being on levophed and PICC team is currently in house, order received for PICC line placement. Patient's daughter, Krystle Kraus was called and obtained consent for PICC line placement using two nurse verification with this RN and Kimberlee CORBIN.
--- NOTE | 2024-04-12 22:25 | PC.NURSE ---
Consent obtained by mysel, nurse, and the patient's family. All risk and benefits discussed. Risk included dvt and infection. LUE scanned with US and brachial vein was the best option. Vein was straight, 4 mm, and free of visible clot. Pt prepped and draped in usual sterile fashion. Using real time US lidociane injected, vein accesed and picc floated into position. Chest xray obtained and waiting confirmation. EBl less then 5 ml.
[2024-04-13] VITALS (90 sets, daily range): BP systolic 83–134; BP diastolic 37–69; PULSE 56–88; RESP 11–21; TEMP 36.4–37.1; O2SAT 94–99
[2024-04-13] MEDS: piperacillin-tazobactam 3.375 GM in sodium chloride 0.9% (plus) 100 ML IV ×3 (02:20→18:03)
[2024-04-13] MEDS: sodium chloride 0.9% 1,000 ML 125 ML IV (02:21)
[2024-04-13] MEDS: heparin 5,000 unit/mL INJ 1 mL 5000 UNIT SUBCUT ×2 (03:15→15:33)
[2024-04-13] MEDS: norepinephrine 4 MG/250 ML BAG 22.5 MG IV (03:27)
[2024-04-13] MEDS: venlafaxine ER (24HR) 75 mg Capsule PO (05:05)
[2024-04-13 06:21] LABS: Basophils # 0.1 10^3/uL (0.0-0.1); Eosinophils # 0.4 10^3/uL (0.0-0.8); Eosinophils % 3.8 %; Hematocrit 34.2 % (36-47); Lymphocytes # 2.2 10^3/uL (0.8-4.8); Lymphocytes % 21.3 %; Mean Corpuscular HGB Conc 32.5 g/dL (30-55); Mean Corpuscular Hemoglobin 29.4 pg (27-33); Mean Corpuscular Volume 90.7 fl (85-98); Monocytes # 0.8 10^3/uL (0.2-0.9); Monocytes % 7.6 %; Neutrophils # 6.79 10^3/uL (1.8-7.7); Neutrophils % 65.8 %; Nucleated Red Blood Cells % 0 %; Platelet Count 443 10^3/cmm (157-399); Red Blood Count 3.77 10^6/uL (3.85-5.65); Red Cell Distribution Width 13.3 % (12.1-15.1); White Blood Count 10.31 10^3/uL (3.29-11.43)
[2024-04-13 06:43] LABS: Alanine Aminotransferase 19 U/L (0-33); Albumin Level 2.7 g/dL (3.5-5.2); Alkaline Phosphatase 114 U/L (35-105); Anion Gap 14.7 (5-19); Aspartate Amino Transferase 26 U/L (0-32); Blood Urea Nitrogen 17 mg/dL (8-23); Calcium 7.6 mg/dL (8.5-10.5); Carbon Dioxide 21 mmol/L (22-29); Chloride 108 mmol/L (98-107); Creatinine Clr Calc Pharmacy 61.2015; Globulin 3.5 g/dL (1.3-4.6); Glucose 105 mg/dL (65-115); Magnesium 2.3 mg/dL (1.7-2.3); Osmolality Calculated 292 mOsm/kg (285-295); Phosphorus 1.9 mg/dL (2.5-4.5); Potassium 3.7 mmol/L (3.5-5.1); Sodium 140 mmol/L (136-145); Total Bilirubin 0.2 mg/dL (0.15-1.2); Total Protein 6.2 g/dL (6.6-8.7)
[2024-04-13 09:24] LABS: Glucose Point of Care 117 mg/dL (70-110)
--- NOTE | 2024-04-13 09:24 | PC.CHAP ---
Pastoral Care Encounter/Spiritual Assessment Type of Contact [] Declined coffee shop manager visit [] Patient/Family/Request visit [] Outpatient visit [] Follow-up visit [] Physician referral [] Code/Alert [x] Routine visit [] Staff referral [] Actively dying [x] Patient sleeping [] Family support [] [] Out of room [] Palliative care [] [] Receiving care in room [] Pre-surgical visit [] Trauma [] Long length of stay [x] ICU visit [] Other: Relational/Emotional Strength [] Patient feels connected with others/family/visitors/staff [] Distress [] Loneliness/isolation [] Abandonment Spirituality of Patient [] Person of Awa [] Attends Holiness of their Awa [] Believes in Prayer [] Reads Bible or Cheondoism materials [] There are Spiritual issues to be addressed Supervisor [employer] Interventions [x] Prayer [] Active listening [] Non-anxious presence [] Spiritual/emotional support [] Crisis/trauma care [] Spiritual counseling [] Bereavement support [] Provided bereavement packet [] Provided Bible/devotional materials [] Provided toy/stuffed animal, coloring book to patient or family member [] Provided Communion [] Anointing/[place] [] Salvation [] Completed spiritual assessment [] Other: Impact on Illness or Injury [] Angry [] Fearful [] Anxious [] Often cries [] Exhaustion [] Unable to work [] Unable to attend holiness [] Unable to walk/stand [] Unable to read [] Unable to drive [] Unable to eat/drink [] Unable to sleep [] Unable to be with family [] Patient intubated [] Other: Summary Time spent with patient
[2024-04-13] MEDS: fluconazole 100 mg Tablet 400 MG PO (09:26)
[2024-04-13] MEDS: aspirin 81 mg EC Tablet PO (09:28)
[2024-04-13] MEDS: iron polysaccharide complex 150 mg Capsule PO (09:28)
[2024-04-13] MEDS: famotidine 20 mg Tablet PO ×2 (09:28→18:08)
[2024-04-13] MEDS: risperiDONE 0.25 mg Tablet 0.5 MG PO ×3 (09:29→18:08)
[2024-04-13] MEDS: levothyroxine 100 mcg SDV 125 MCG IVP (09:32)
[2024-04-13] MEDS: sodium chloride 0.9% 1,000 ML 75 ML IV (10:55)
--- NOTE | 2024-04-13 11:22 | PC.SOCIAL ---
IMM Update Pg. 2 of IMM updated and reviewed with patient, who verbalized understanding. Copy provided.
[2024-04-13 12:13] LABS: Procalcitonin 0.16 ng/mL (0-0.5); Thyroid Stimulating Hormone 28.84 uIU/mL (0.27-4.20); Vitamin B12 425 pg/mL (232-1245)
[2024-04-13 12:24] LABS: Iron 39 ug/dL (37-145); Percent Saturation 13.4 % (20-50); Total Iron Binding Capacity 290 mcg/dl; Unsaturated Iron Binding 251 ug/dL (112-347)
[2024-04-13 12:54] LABS: Cortisol Random 23.54 ug/dL (2.47-19.5)
[2024-04-13] MEDS: acetaminophen 325 mg Tablet 650 MG PO (15:28)
[2024-04-13] MEDS: vancomycin 1,250 MG/250 ML PIGGYBACK 250 MG IV (15:31)
--- NOTE | 2024-04-13 15:57 | P.PN_ITS ---
Subjective 2 Subjective: Hospital course, labs appreciated. Examination patient laying comfortably in bed currently on Levophed of 6 with a mean artery pressure of 70, denies any nausea vomiting, headache. 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 Has remained afebrile. Vitals/I&O/Wt Last Vital Signs Temp 98.4 F 04/13/24 12:00 Pulse 85 04/13/24 12:15 Resp 18 04/13/24 12:15 BP 115/58 04/13/24 12:15 Pulse Ox 96 04/13/24 12:15 O2 Del Method Room Air 04/13/24 12:15 04/13/24 04/13/24 04/13/24 06:59 14:59 22:59 Intake Total 1583.000 / 5137.017 1880.563 / 1880.563 468.75 / 2349.313 Output Total 1200 / 2720 625 / 625 Balance 383.000 / 2417.017 1255.563 / 1255.563 468.75 / 1724.313 Weight last 48 hrs Weight 86.5 kg Weight 84.958 kg Weight 84.958 kg Weight 95.254 kg Physical Exam 2 Narrative: General: No acute distress, AO x3, slow to respond HEENT: PERRLA, pupils bilaterally equal and reactive Chest: Normal vesicular breath sounds, no added sounds, equal good air entry bilaterally CVS: S1-S2 regular, ejection systolic murmur at aortic region 2/6 radiating to carotids, no tachycardia, no gallops, no rubs Abdomen: Soft, nontender, bowel sounds sluggish, colostomy present, medial to colostomy enterocutaneous fistula present with leakage and excoriation around the skin Neuro: No focal deficits, no facial deformity, AO x3, power 5/5 in all limbs Resp: COMMON NORMALS: clear to auscultation bilaterally AUSCULTATION: clear to auscultation bilaterally Cardio: COMMON NORMALS: regular rate, S1 normal heart sound present and S2 normal heart sound present RATE: regular rate HEART SOUNDS: S1 normal heart sound present, S2 normal heart sound present and Murmur heart sound present Urinary Catheter Management: Thompson: Cath Placed During This Visit: yes Reason for Continuing Indwelling Catheter: Accurate Measurement of Urinary Output in Critically Ill Patients Urinary Catheter Date of Insertion: 04/11/24 Urinary Catheter Time of Insertion: 20:17 Quick SOFA Score: Respiratory Rate: 18 Blood Pressure: 115/58 [place] Coma Scale: 14 qSOFA Score: 1 If qSOFA score 2 or greater, continue: Blood Pressure Mean: 77 N orepinephrine Current Rate (?g/kg/min): 5 Bilirubin (mg/dl): 0.2 Platelets (x10?/ml): 443 Creatinine (mg/dl): 0.8 Evaluation: Current stage of sepsis: septic shock Sepsis stage criteria used: [facility] Sep-1 and Sepsis-3 Crystalloid fluids: 30 mL/kg crystalloid fluids ordered and initiated within 3 hours Blood cultures ordered: Yes Possible source: GI tract/intra-abdominal Focused Exam: Vital signs: Temp Pulse Resp BP Pulse Ox O2 Del Method 04/13/24 12:15 85 18 115/58 96 Room Air 04/13/24 12:00 98.4 F 72 16 115/58 96 Room Air 04/13/24 11:45 74 13 103/50 95 Room Air 04/13/24 11:30 77 14 108/49 96 Room Air 04/13/24 11:15 77 13 106/51 96 Room Air 04/13/24 11:00 78 13 101/63 95 Room Air 04/13/24 10:45 78 13 113/65 Room Air 04/13/24 10:30 80 13 116/55 04/13/24 10:15 74 14 83/37 04/13/24 10:00 84 14 99/52 98 04/13/24 09:45 82 16 134/65 99 04/13/24 09:30 61 14 134/65 97 04/13/24 09:15 81 17 110/51 97 04/13/24 09:00 97.9 F 69 13 107/52 97 Room Air 04/13/24 08:45 65 12 04/13/24 08:30 67 12 04/13/24 08:15 80 15 04/13/24 08:00 81 14 118/69 04/13/24 07:45 80 14 119/56 95 04/13/24 07:30 70 21 H 110/62 94 04/13/24 07:15 58 L 13 110/59 96 04/13/24 07:00 69 14 107/51 95 04/13/24 06:45 78 18 113/63 95 04/13/24 06:30 70 13 95/60 95 04/13/24 06:15 73 12 101/57 96 04/13/24 06:00 81 14 107/53 97 04/13/24 05:51 77 04/13/24 05:45 87 11 L 104/63 97 04/13/24 05:30 80 12 118/54 97 04/13/24 05:15 69 13 91/62 98 04/13/24 05:14 98.8 F 04/13/24 05:00 61 12 124/60 97 04/13/24 04:45 68 14 112/58 97 04/13/24 04:30 62 14 116/50 96 04/13/24 04:15 64 15 117/52 97 Respiratory exam: Yes clear to auscultation bilaterally Cardiovascular exam: Yes regular rate, S1 normal heart sound present, S2 normal heart sound present and Murmur heart sound present Capillary refill: < 3 Seconds Date exam was performed: 04/13/24 Time exam was performed: 16:14 2 Sepsis Screen No Definite Risk 04/12/24 02:56 Respiratory Rate 18 breaths/min (12 - 18) 04/13/24 12:15 Blood Pressure 115/58 mmHg 04/13/24 12:15 [place] Coma Scale Score 14 04/13/24 11:51 Quick SOFA Score 1 04/12/24 02:56 SOFA Score: 2 [place] Coma Scale Score 14 04/13/24 11:51 Blood Pressure Mean 77 mmHg 04/13/24 12:15 Total Bilirubin 0.2 mg/dL (0.15-1.2) 04/13/24 06:07 Platelet Count 443 10^3/cmm (157-399) H 04/13/24 06:07 Creatinine 0.8 mg/dL (0.5-0.9) 04/13/24 06:07 Data 04/13/24 06:07 04/13/24 06:07 Micro: Microbiology 04/11/24 20:14 Urine Culture - Preliminary Urine,Clean Catch Gram Negative Rods 04/11/24 18:46 Blood Culture - Preliminary Blood NEGATIVE TO DATE 04/11/24 18:33 Blood Culture - Preliminary Blood NEGATIVE TO DATE A&P Assessment and plan (1) Sepsis: Currently in septic shock. Source: Enterocutaneous fistula End organ damage: Acute infectious encephalopathy, acute kidney injury, shock Patient did receive full 30 mL/kg BW on admission. Continue with normal saline at 100 cc/h for now. Watch for fluid overload. Follow-up blood cultures, urine culture, recheck procalcitonin, follow-up MRSA swab. Continue with IV vancomycin and Zosyn for now. Wean Levophed keeping mean artery pressure over 65. Check cortisol level. Strict input charting as possible. (2) Hypothyroidism: As per the [facility] patient has been getting oral levothyroxine 150 mcg daily at the [facility]. Appreciate thyroid profile on admission. Will recheck. Check cortisol level. Continue with IV levothyroxine 125 mcg daily for now. Qualifiers: Hypothyroidism type: unspecified Qualified Code(s): E03.9 - Hypothyroidism, unspecified (3) Acute hyponatremia: Severe hyponatremia initially of 119 on admission. Continue to monitor. Currently sodium levels normal. Repeat BMP in evening. 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 Currently GNR. Broad-spectrum antibiotics as above Qualifiers: Hematuria presence: with hematuria Urinary tract infection type: acute cystitis Qualified Code(s): N30.01 - Acute cystitis with hematuria (6) Acute encephalopathy: Acute metabolic encephalopathy Treat underlying infection and optimize electrolytes Avoid sedating medications Neurochecks Supportive care (7) Acute hyperkalemia: Resolved for now. Continue to monitor. (8) DINA (acute kidney injury): Acute kidney injury likely prerenal in the setting of sepsis and dehydration. Renal function is normal for now. Medical reconciliation done for nephrotoxic drugs. Monitor BMP daily for now. Monitor electrolytes. Replace phosphorus. (9) GERD (gastroesophageal reflux disease): Continue famotidine (10) Dementia: Continue home donepezil Continue home risperidone Plan DVT prophylaxis: CODE STATUS: DNR/DNI Famotidine for PUD PPx Regular diet Attestations 2 Medical Necessity Statement*: Requires further hospitalization for management of septic shock in setting of enterocutaneous fistula while transfer to [facility] is awaited Critical Care Time: The high probability of a clinically significant, sudden or life threatening deterioration of the patient's [cardiac, renal, ID, GI] system(s) required my full and direct attention, intervention and personal management. The critical care time is as shown. This time is in addition to time spent performing any reported procedures but includes the following: [x] Data and vital sign review and interpretation [x] Patient assessment, examination and intervention [x] Documentation [x] Medication orders and management Coding Level of Care Code Critical Care >/= 30 minutes Critical care time (in minutes): 60 The high probability of a clinically significant, sudden or life threatening deterioration, as referenced in this documentation, required my full and direct attention, intervention and personal management. The critical care time shown is in addition to time spent performing any reported separately billable procedures and includes the following: [x] Data and vital sign review and interpretation [x ] Patient assessment, examination and intervention [x] Medication orders and management [x] Patient/Family updates as able [x] Care Coordination and Documentation. Diagnoses Sepsis A41.9 Hypothyroidism E03.9 Hypothyroidism type: unspecified Acute hyponatremia E87.1 Fistula of small intestine K63.2 Urinary tract infection N30.01 Hematuria presence: with hematuria Urinary tract infection type: acute cystitis Acute encephalopathy G93.40 Acute hyperkalemia E87.5 DINA (acute kidney injury) N17.9 GERD (gastroesophageal reflux disease) K21.9 Dementia F03.90
[2024-04-13 17:24] LABS: Methicillin-Resist S.aureu PCR NOT DETECTED (NOT DETECTED)
[2024-04-13] MEDS: phosphorus 250 mg Tablet PO (18:08)
[2024-04-13 18:12] LABS: Glucose Point of Care 111 mg/dL (70-110)
[2024-04-13 18:19] LABS: Phosphorus 1.8 mg/dL (2.5-4.5)
--- NOTE | 2024-04-13 18:44 | PC.NURSE ---
Shift Summary: Able to titrate off of the Levophed by end of shift. Patient remains confused, oriented to person and place. Total urine output 975ml, total recorded output from fistula 550ml, though a very large volume equal to or greater than 550 spilled into the bed and sheets. Attempted to contain the fistula leakage with an ostomy bag but was not successful. Fistula output is mostly clear liquid with some chunks of food particles. Up to the chair for about 4 hours today. I.S. at bedside patient has used a few times, may need reminded to continue to use.
[2024-04-13] MEDS: norepinephrine 4 MG/250 ML BAG 7.5 MG IV (19:17)
--- NOTE | 2024-04-13 21:38 | PC.NURSE ---
Patient cleaned of a large amount of stool oozing from mid abdomen ostomy. linens changed. patient repositioned for comfort.
[2024-04-13] MEDS: donepezil 5 MG Tablet 10 MG PO (21:46)
[2024-04-13] MEDS: sodium chloride 0.9% 1,000 ML 100 ML IV (21:48)
[2024-04-14] VITALS (74 sets, daily range): BP systolic 84–127; BP diastolic 31–71; PULSE 56–86; RESP 12–20; TEMP 36.2–36.8; O2SAT 94–100
--- NOTE | 2024-04-14 | PC.NURSE ---
Patient cleaned of large amount feces. Linens changed.
[2024-04-14] MEDS: piperacillin-tazobactam 3.375 GM in sodium chloride 0.9% (plus) 100 ML IV ×3 (03:20→17:51)
[2024-04-14] MEDS: heparin 5,000 unit/mL INJ 1 mL 5000 UNIT SUBCUT ×2 (03:20→15:38)
[2024-04-14 05:33] LABS: Basophils # 0.1 10^3/uL (0.0-0.1); Basophils % 0.8 %; Eosinophils # 0.7 10^3/uL (0.0-0.8); Eosinophils % 6.7 %; Hematocrit 34.3 % (36-47); Lymphocytes # 2.3 10^3/uL (0.8-4.8); Lymphocytes % 22.7 %; Mean Corpuscular HGB Conc 30.9 g/dL (30-55); Mean Platelet Volume 9.3 fL (7.4-10.4); Monocytes # 0.8 10^3/uL (0.2-0.9); Monocytes % 7.3 %; Neutrophils # 6.37 10^3/uL (1.8-7.7); Neutrophils % 61.9 %; Nucleated Red Blood Cells % 0 %; Platelet Count 299 10^3/cmm (157-399); Red Blood Count 3.65 10^6/uL (3.85-5.65); Red Cell Distribution Width 13.4 % (12.1-15.1); White Blood Count 10.28 10^3/uL (3.29-11.43)
[2024-04-14 05:50] LABS: Chol HDL Ratio 3.46 mg/dL (0.0-4.40); Cholesterol 135 mg/dL (0-200); HDL Cholesterol 39 mg/dL (60-100); LDL Cholesterol Calculated 57 mg/dL (50-129); Magnesium 1.8 mg/dL (1.7-2.3); Triglycerides 197 mg/dL (0-150); VLDL Cholestrol Calculation 39 mg/dL (0-30)
[2024-04-14 05:51] LABS: Alanine Aminotransferase 18 U/L (0-33); Albumin Level 2.5 g/dL (3.5-5.2); Alkaline Phosphatase 111 U/L (35-105); Blood Urea Nitrogen 10 mg/dL (8-23); Calcium 7.4 mg/dL (8.5-10.5); Carbon Dioxide 19 mmol/L (22-29); Chloride 102 mmol/L (98-107); Creatinine Clr Calc Pharmacy 62.1882; Estmated Average Glucose 114; Globulin 3.5 g/dL (1.3-4.6); Glucose 119 mg/dL (65-115); Hemoglobin A1C 5.6 % (4.0-6.0); Osmolality Calculated 278 mOsm/kg (285-295); Sodium 134 mmol/L (136-145); Total Bilirubin 0.2 mg/dL (0.15-1.2)
[2024-04-14 05:54] LABS: Anion Gap 16.4 (5-19); Aspartate Amino Transferase 23 U/L (0-32); Potassium 3.4 mmol/L (3.5-5.1)
[2024-04-14 06:11] LABS: Folate Level 6.1 ng/mL (4.8-37.3)
[2024-04-14] MEDS: venlafaxine ER (24HR) 75 mg Capsule PO (06:22)
[2024-04-14] MEDS: sodium chloride 0.9% 1,000 ML 100 ML IV ×2 (08:52→20:17)
[2024-04-14] MEDS: levothyroxine 100 mcg SDV 125 MCG IVP (08:54)
[2024-04-14] MEDS: risperiDONE 0.25 mg Tablet 0.5 MG PO ×2 (08:57→17:51)
[2024-04-14] MEDS: iron polysaccharide complex 150 mg Capsule PO (08:57)
[2024-04-14] MEDS: phosphorus 250 mg Tablet PO ×2 (08:57→17:51)
[2024-04-14] MEDS: famotidine 20 mg Tablet PO ×2 (08:57→17:51)
[2024-04-14] MEDS: fluconazole 100 mg Tablet 400 MG PO (08:57)
[2024-04-14] MEDS: aspirin 81 mg EC Tablet PO (08:57)
--- NOTE | 2024-04-14 09:59 | PC.NURSE ---
[facility] called unit for update. Update given. Still no bed.
[2024-04-14 10:19] LABS: Vancomycin Trough 11.6 ug/mL (10-15)
--- NOTE | 2024-04-14 10:26 | PC.CHAP ---
Pastoral Care Encounter/Spiritual Assessment Type of Contact [] Declined clinic physician director visit [] Patient/Family/Request visit [] Outpatient visit [] Follow-up visit [] Physician referral [] Code/Alert [x] Routine visit [] Staff referral [] Actively dying [x] Patient sleeping [] Family support [] [] Out of room [] Palliative care [] [] Receiving care in room [] Pre-surgical visit [] Trauma [] Long length of stay [x] ICU visit [] Other: Relational/Emotional Strength [] Patient feels connected with others/family/visitors/staff [] Distress [] Loneliness/isolation [] Abandonment Spirituality of Patient [] Person of Awa [] Attends Judaism of their Awa [] Believes in Prayer [] Reads Bible or Yazdanism materials [] There are Spiritual issues to be addressed [employer]ant Interventions [x] Prayer [] Active listening [] Non-anxious presence [] Spiritual/emotional support [] Crisis/trauma care [] Spiritual counseling [] Bereavement support [] Provided bereavement packet [] Provided Bible/devotional materials [] Provided toy/stuffed animal, coloring book to patient or family member [] Provided Communion [] Anointing/[place] [] Salvation [] Completed spiritual assessment [] Other: Impact on Illness or Injury [] Angry [] Fearful [] Anxious [] Often cries [] Exhaustion [] Unable to work [] Unable to attend hindu [] Unable to walk/stand [] Unable to read [] Unable to drive [] Unable to eat/drink [] Unable to sleep [] Unable to be with family [] Patient intubated [] Other: Summary Time spent with patient
[2024-04-14] MEDS: vancomycin 1,250 MG/250 ML PIGGYBACK 250 MG IV (10:43)
[2024-04-14] MEDS: lidocaine 1% 5 ML in potassium chloride premix 100 ML 26.25 ML IV ×2 (12:01→15:38)
[2024-04-14] MEDS: diphenoxylate/atropine Tablet 2 TAB PO (12:01)
--- NOTE | 2024-04-14 14:42 | PM.PN ---
Subjective Subjective: No acute events overnight. Patient currently on 4 of Levophed. Was turned down to 2 L in the evening yesterday. Mean arterial pressure over 70. Patient at baseline mentation. Continues to have high output through the fistula Vitals/I&O/Wt Last Vital Signs Temp 97.2 F L 04/14/24 04:00 Pulse 56 L 04/14/24 12:00 Resp 12 04/14/24 12:00 BP 114/52 04/14/24 12:00 Pulse Ox 96 04/14/24 12:00 O2 Del Method Room Air 04/14/24 12:00 04/13/24 04/14/24 04/14/24 22:59 06:59 14:59 Intake Total 2962.812 / 4943.375 514.750 / 5458.125 2126.25 / 2126. Output Total 350 / 975 Balance 2612.812 / 3968.375 514.750 / 4483.125 2126. / 2126. 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 and excoriation around the skin Neuro: No focal deficits, no facial deformity, AO x3, power 5/5 in all limbs Resp: COMMON NORMALS: clear to auscultation bilaterally AUSCULTATION: clear to auscultation bilaterally Cardio: COMMON NORMALS: regular rate, S1 normal heart sound present and S2 normal heart sound present RATE: regular rate HEART SOUNDS: S1 normal heart sound present, S2 normal heart sound present and Murmur heart sound present Urinary Catheter Management: Thompson: Cath Placed During This Visit: yes Reason for Continuing Indwelling Catheter: Accurate Measurement of Urinary Output in Critically Ill Patients Urinary Catheter Date of Insertion: 04/11/24 Urinary Catheter Time of Insertion: 20:17 Quick SOFA Score: Respiratory Rate: 12 Blood Pressure: 114/52 [place] Coma Scale: 14 qSOFA Score: 1 If qSOFA score 2 or greater, continue: Blood Pressure Mean: 72 Norepinephrine Current Rate (?g/kg/min): 4 Bilirubin (mg/dl): 0.2 Platelets (x10?/ml): 299 Creatinine (mg/dl): 0.6 Evaluation: Current stage of sepsis: septic shock Sepsis stage criteria used: [facility] Sep-1 and Sepsis-3 Crystalloid fluids: 30 mL/kg crystalloid fluids ordered and initiated within 3 hours Blood cultures ordered: Yes Possible source: GI tract/intra-abdominal Focused Exam: Vital signs: Temp Pulse Resp BP Pulse Ox O2 Del Method 04/14/24 12:00 56 L 12 114/52 96 Room Air 04/14/24 11:30 57 L 16 127/49 97 Room Air 04/14/24 11:00 57 L 14 118/56 98 Room Air 04/14/24 10:30 60 13 117/59 98 Room Air 04/14/24 10:00 73 14 97 Room Air 04/14/24 09:30 74 13 97 Room Air 04/14/24 09:00 81 20 H 105/59 96 Room Air 04/14/24 08:30 76 16 87/60 97 Room Air 04/14/24 08:00 79 13 100/55 95 Room Air 04/14/24 07:30 65 12 100/53 95 Room Air 04/14/24 07:00 60 14 103/53 95 Room Air 04/14/24 06:30 70 16 119/58 95 Room Air 04/14/24 06:15 75 12 93/51 04/14/24 06:00 66 04/14/24 06:00 66 14 101/53 04/14/24 05:45 66 13 107/51 04/14/24 05:30 76 15 100/48 04/14/24 05:15 66 12 84/49 04/14/24 05:00 72 12 84/52 94 04/14/24 04:45 77 13 04/14/24 04:30 72 16 04/14/24 04:15 73 14 04/14/24 04:00 97.2 F L 76 14 94 04/14/24 03:45 72 15 04/14/24 03:30 76 14 04/14/24 03:15 75 12 04/14/24 03:00 83 16 04/14/24 02:45 74 16 101/58 Respiratory exam: Yes clear to auscultation bilaterally Cardiovascular exam: Yes regular rate, S1 normal heart sound present, S2 normal heart sound present and Murmur heart sound present Date exam was performed: 04/14/24 Time exam was performed: 14:47 Sepsis Screen No Definite Risk 04/12/24 02:56 Respiratory Rate 12 breaths/min (12 - 18) 04/14/24 12:00 Blood Pressure 114/52 mmHg 04/14/24 12:00 [place] Coma Scale Score 14 04/14/24 08:00 Quick SOFA Score 1 04/13/24 16:14 SOFA Score: [place] Coma Scale Score 14 04/14/24 08:00 Blood Pressure Mean 72 mmHg 04/14/24 12:00 Norepinephrine Current Rate 5 04/13/24 16:14 Total Bilirubin 0.2 mg/dL (0.15-1.2) 04/14/24 04:35 Platelet Count 299 10^3/cmm (157-399) 04/14/24 04:35 Creatinine 0.6 mg/dL (0.5-0.9) 04/14/24 04:35 Data 04/14/24 04:35 04/14/24 04:35 Micro: Microbiology 04/11/24 20:14 Urine Culture - Final Urine,Clean Catch Klebsiella pneumoniae A&P Assessment and plan (1) Sepsis: Currently in septic shock. Source: Enterocutaneous fistula End organ damage: Acute infectious encephalopathy, acute kidney injury, shock Patient did receive full 30 mL/kg BW on admission. Continue with normal saline at 100 cc/h for now. Watch for fluid overload. Follow-up blood cultures, urine culture, recheck procalcitonin, follow-up MRSA swab. Continue with IV vancomycin and Zosyn for now. Wean Levophed keeping mean artery pressure over 65. Check cortisol level. Strict input charting as possible. (2) Hypothyroidism: As per the [facility] patient has been getting oral levothyroxine 150 mcg daily at the [facility]. Appreciate thyroid profile on admission. Will recheck. Check cortisol level. Continue with IV levothyroxine 125 mcg daily for now. Qualifiers: Hypothyroidism type: unspecified Qualified Code(s): E03.9 - Hypothyroidism, unspecified (3) Acute hyponatremia: Severe hyponatremia initially of 119 on admission. Continue to monitor. Currently sodium levels normal. Repeat BMP in evening. 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 Currently GNR. Broad-spectrum antibiotics as above Qualifiers: Hematuria presence: with hematuria Urinary tract infection type: acute cystitis Qualified Code(s): N30.01 - Acute cystitis with hematuria (6) Acute encephalopathy: Acute metabolic encephalopathy Treat underlying infection and optimize electrolytes Avoid sedating medications Neurochecks Supportive care (7) Acute hyperkalemia: Resolved for now. Continue to monitor. (8) DINA (acute kidney injury): Acute kidney injury likely prerenal in the setting of sepsis and dehydration. Renal function is normal for now. Medical reconciliation done for nephrotoxic drugs. Monitor BMP daily for now. Monitor electrolytes. Replace phosphorus. (9) GERD (gastroesophageal reflux disease): Continue famotidine (10) Dementia: Continue home donepezil Continue home risperidone Plan DVT prophylaxis: CODE STATUS: DNR/DNI Famotidine for PUD PPx Plan for the day: Wean Levophed as possible keeping mean artery pressure 65. Patient continues to have high output through the enterocutaneous fistula. Discussed with surgery. Change diet to mechanical soft. Add Lomotil. Most likely Lomotil will not help much as patient has a proximal fistula but will try. Stop senna for now. Replace potassium with 80 mg IV. Repeat in AM. Will try to manage and manage the intake of fluid. Continue with NS at 100 cc/h for now. Watch for fluid overload. Urine culture growing Proteus. Culture sensitivities appreciated. Continue with IV Zosyn. Vancomycin discontinued. MRSA swab negative. Attestations Medical Necessity Statement*: Requires further hospitalization for management of septic shock in setting of enterocutaneous fistula leading to high output, enteritis while bed at higher center is elevated Critical Care Time: The high probability of a clinically significant, sudden or life threatening deterioration of the patient's [cardiac, GI, renal] system(s) required my full and direct attention, intervention and personal management. The critical care time is as shown. This time is in addition to time spent performing any reported procedures but includes the following: [x] Data and vital sign review and interpretation [x] Patient assessment, examination and intervention [x] Documentation [x] Medication orders and management Critical Care Time (min): 60 Coding Level of Care Code Critical Care >/= 30 minutes Critical care time (in minutes): 60 The high probability of a clinically significant, sudden or life threatening deterioration, as referenced in this documentation, required my full and direct attention, intervention and personal management. The critical care time shown is in addition to time spent performing any reported separately billable procedures and includes the following: [x] Data and vital sign review and interpretation [x] Patient assessment, examination and intervention [x] Medication orders and management [x] Patient/Family updates as able [x] Care Coordination and Documentation. Diagnoses Sepsis A41.9 Hypothyroidism E03.9 Hypothyroidism type: unspecified Acute hyponatremia E87.1 Fistula of small intestine K63.2 Urinary tract infection N30.01 Hematuria presence: with hematuria Urinary tract infection type: acute cystitis Acute encephalopathy G93.40 Acute hyperkalemia E87.5 DINA (acute kidney injury) N17.9 GERD (gastroesophageal reflux disease) K21.9 Dementia F03.90
[2024-04-14] MEDS: norepinephrine 4 MG/250 ML BAG 7.5 MG IV (15:38)
[2024-04-14] MEDS: donepezil 5 MG Tablet 10 MG PO (20:17)
[2024-04-15] VITALS (92 sets, daily range): BP systolic 75–140; BP diastolic 37–75; PULSE 62–89; RESP 10–46; TEMP 36.6–37.1; O2SAT 93–100
[2024-04-15] MEDS: piperacillin-tazobactam 3.375 GM in sodium chloride 0.9% (plus) 100 ML IV ×3 (04:11→18:11)
[2024-04-15] MEDS: heparin 5,000 unit/mL INJ 1 mL 5000 UNIT SUBCUT ×2 (04:11→15:24)
[2024-04-15 04:45] LABS: Basophils # 0.1 10^3/uL (0.0-0.1); Eosinophils # 1.3 10^3/uL (0.0-0.8); Eosinophils % 10.7 %; Hematocrit 33.1 % (36-47); Lymphocytes # 2.7 10^3/uL (0.8-4.8); Lymphocytes % 23.4 %; Mean Corpuscular HGB Conc 31.7 g/dL (30-55); Mean Corpuscular Hemoglobin 29.1 pg (27-33); Mean Corpuscular Volume 91.7 fl (85-98); Mean Platelet Volume 9.2 fL (7.4-10.4); Monocytes # 0.8 10^3/uL (0.2-0.9); Monocytes % 6.5 %; Neutrophils % 58.1 %; Nucleated Red Blood Cells % 0 %; Platelet Count 355 10^3/cmm (157-399); Red Blood Count 3.61 10^6/uL (3.85-5.65); Red Cell Distribution Width 13.5 % (12.1-15.1); White Blood Count 11.71 10^3/uL (3.29-11.43)
[2024-04-15] MEDS: venlafaxine ER (24HR) 75 mg Capsule PO (05:00)
[2024-04-15 05:02] LABS: Alanine Aminotransferase 18 U/L (0-33); Albumin Level 2.6 g/dL (3.5-5.2); Alkaline Phosphatase 115 U/L (35-105); Blood Urea Nitrogen 5 mg/dL (8-23); Calcium 7.6 mg/dL (8.5-10.5); Carbon Dioxide 18 mmol/L (22-29); Chloride 104 mmol/L (98-107); Creatinine Clr Calc Pharmacy 62.1882; Globulin 3.5 g/dL (1.3-4.6); Glucose 91 mg/dL (65-115); Osmolality Calculated 275 mOsm/kg (285-295); Sodium 134 mmol/L (136-145); Total Bilirubin 0.2 mg/dL (0.15-1.2); Total Protein 6.1 g/dL (6.6-8.7)
[2024-04-15 05:11] LABS: Magnesium 1.6 mg/dL (1.7-2.3)
[2024-04-15 05:21] LABS: Anion Gap 16.4 (5-19); Aspartate Amino Transferase 22 U/L (0-32); Potassium 4.4 mmol/L (3.5-5.1)
[2024-04-15] MEDS: sodium chloride 0.9% 1,000 ML 100 ML IV ×2 (08:30→18:24)
[2024-04-15] MEDS: magnesium sulfate premix 1 GM/100 ML PIGGYBACK IV (08:32)
[2024-04-15] MEDS: famotidine 20 mg Tablet PO ×2 (08:36→18:12)
[2024-04-15] MEDS: levothyroxine 100 mcg SDV 125 MCG IVP (08:36)
[2024-04-15] MEDS: fluconazole 100 mg Tablet 400 MG PO (08:36)
[2024-04-15] MEDS: risperiDONE 0.25 mg Tablet 0.5 MG PO ×2 (08:36→18:11)
[2024-04-15] MEDS: aspirin 81 mg EC Tablet PO (08:36)
[2024-04-15] MEDS: phosphorus 250 mg Tablet PO ×2 (08:36→18:11)
[2024-04-15] MEDS: iron polysaccharide complex 150 mg Capsule PO (08:36)
[2024-04-15 08:49] LABS: Phosphorus 2.4 mg/dL (2.5-4.5)
--- NOTE | 2024-04-15 09:48 | PC.NURSE ---
No beds available at [facility].
--- NOTE | 2024-04-15 11:18 | PC.SOCIAL ---
IMM Update Pg. 2 of IMM updated and reviewed with patient, who verbalized understanding. Copy provided.
[2024-04-15] MEDS: norepinephrine 4 MG/250 ML BAG 7.5 MG IV (12:26)
--- NOTE | 2024-04-15 13:45 | PM.PN ---
Subjective Subjective: No acute events overnight. Patient denies any nausea, vomiting, headache. Eating well during examination. On 3 of Levophed with mean artery pressure over 70. 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 Awaiting bed at [facility]. Vitals/I&O/Wt Last Vital Signs Temp 98.2 F 04/15/24 09:12 Pulse 68 04/15/24 12:15 Resp 16 04/15/24 12:15 BP 130/65 04/15/24 12:15 Pulse Ox 98 04/15/24 12:15 O2 Del Method Room Air 04/14/24 18:00 04/14/24 04/15/24 04/15/24 22:59 06:59 14:59 Intake Total 1286.063 / 3413.313 1580 / 4993.313 1061 / 1061 Output Total 1000 / 1000 1000 / 2000 Balance 286.063 / 2413.313 580 / 2993.313 1061 / 1061 Weight last 48 hrs Weight 91.081 kg Weight 91.081 kg Weight 88.995 kg Weight 88.995 kg Physical Exam Narrative: General: No acute distress, AO x3, slow to respond HEENT: PERRLA, pupils bilaterally equal and reactive Chest: Normal vesicular breath sounds, no added sounds, equal good air entry bilaterally CVS: S1-S2 regular, ejection systolic murmur at aortic region 2/6 radiating to carotids, no tachycardia, no gallops, no rubs Abdomen: Soft, nontender, bowel sounds sluggish, colostomy present, medial to colostomy enterocutaneous fistula present with leakage and excoriation around the skin Neuro: No focal deficits, no facial deformity, AO x3, power 5/5 in all limbs Resp: COMMON NORMALS: clear to auscultation bilaterally AUSCULTATION: clear to auscultation bilaterally Cardio: COMMON NORMALS: regular rate, S1 normal heart sound present and S2 normal heart sound present RATE: regular rate HEART SOUNDS: S1 normal heart sound present, S2 normal heart sound present and Murmur heart sound present Urinary Catheter Management: Thompson: Cath Placed During This Visit: yes Reason for Continuing Indwelling Catheter: Accurate Measurement of Urinary Output in Critically Ill Patients Urinary Catheter Date of Insertion: 04/11/24 Urinary Catheter Time of Insertion: 20:17 Quick SOFA Score: Respiratory Rate: 16 Blood Pressure: 130/65 Genevieve Coma Scale: 13 qSOFA Score: 1 If qSOFA score 2 or greater, continue: PaO2/FiO2 Ratio (mmHg): 408 Blood Pressure Mean: 86 Norepinephrine Current Rate (?g/kg/min): 3 Bilirubin (mg/dl): 0.2 Platelets (x10?/ml): 355 Creatinine (mg/dl): 0.6 SOFA Score: 5 Evaluation: Current stage of sepsis: septic shock Sepsis stage criteria used: [facility] Sep-1 and Sepsis-3 Crystalloid fluids: 30 mL/kg crystalloid fluids ordered and initiated within 3 hours Blood cultures ordered: Yes Possible source: GI tract/intra-abdominal Focused Exam: Vital signs: Temp Pulse Resp BP Pulse Ox 04/15/24 12:15 68 16 130/65 98 04/15/24 12:00 73 14 127/64 98 04/15/24 11:45 66 12 129/66 99 04/15/24 11:30 67 15 110/61 99 04/15/24 11:15 65 12 107/52 95 04/15/24 11:00 80 15 108/51 98 04/15/24 10:45 73 15 77/45 04/15/24 10:30 66 14 104/52 04/15/24 10:15 69 12 124/58 04/15/24 10:00 73 15 135/52 04/15/24 09:45 68 13 95/43 04/15/24 09:30 79 13 98/55 04/15/24 09:15 76 14 04/15/24 09:12 98.2 F 04/15/24 09:00 70 15 132/49 04/15/24 08:45 72 14 129/52 98 04/15/24 08:30 79 15 109/48 97 04/15/24 08:15 68 10 L 97 04/15/24 08:00 71 99/37 97 04/15/24 07:45 74 97/50 97 04/15/24 07:30 71 125/50 98 04/15/24 07:15 73 114/69 98 04/15/24 07:00 78 110/59 98 04/15/24 06:45 75 125/75 98 04/15/24 06:30 83 91/53 97 04/15/24 06:15 79 22 H 97/56 98 04/15/24 06:00 85 19 H 115/58 94 04/15/24 06:00 75 04/15/24 05:45 74 16 96/57 100 04/15/24 05:30 80 19 H 115/58 98 04/15/24 05:15 79 15 94/64 98 04/15/24 05:00 79 13 105/63 98 04/15/24 04:45 82 15 105/63 97 04/15/24 04:30 85 14 104/51 98 04/15/24 04:15 74 16 100/52 99 04/15/24 04:00 97.8 F 89 14 100/52 99 04/15/24 03:45 73 14 98/55 98 04/15/24 03:30 80 14 98/50 98 04/15/24 03:15 81 13 91/52 98 04/15/24 03:00 79 14 91/50 98 04/15/24 02:45 81 13 96/53 98 04/15/24 02:30 85 15 96/53 97 04/15/24 02:15 78 13 93/49 98 04/15/24 02:00 78 13 86/48 98 Respiratory exam: Yes clear to auscultation bilaterally Cardiovascular exam: Yes regular rate, S1 normal heart sound present, S2 normal heart sound present and Murmur heart sound present Date exam was performed: 04/15/24 Time exam was performed: 10:58 Sepsis Screen No Definite Risk 04/12/24 02:56 Respiratory Rate 16 breaths/min (12 - 18) 04/15/24 12:15 Blood Pressure 130/65 mmHg 04/15/24 12:15 Genevieve Coma Scale Score 13 04/15/24 08:00 Quick SOFA Score 1 04/14/24 14:48 SOFA Score: [place] Coma Scale Score 13 04/15/24 08:00 Blood Pressure Mean 86 mmHg 04/15/24 12:15 Norepinephrine Current Rate 4 04/14/24 14:48 Total Bilirubin 0.2 mg/dL (0.15-1.2) 04/15/24 03:58 Platelet Count 355 10^3/cmm (157-399) 04/15/24 03:58 Creatinine 0.6 mg/dL (0.5-0.9) 04/15/24 03:58 Data 04/15/24 03:58 04/15/24 03:58 Micro: Microbiology 04/11/24 20:14 Urine Culture - Final Urine,Clean Catch Klebsiella pneumoniae A&P Assessment and plan (1) Sepsis: Currently in septic shock. Source: Enterocutaneous fistula End organ damage: Acute infectious encephalopathy, acute kidney injury, shock Patient did receive full 30 mL/kg BW on admission. Continue with normal saline at 100 cc/h for now. Watch for fluid overload. Follow-up blood cultures, urine culture, recheck procalcitonin, follow-up MRSA swab. Continue with IV vancomycin and Zosyn for now. Wean Levophed keeping mean artery pressure over 65. Check cortisol level. Strict input charting as possible. (2) Hypothyroidism: As per the long term patient has been getting oral levothyroxine 150 mcg daily at the long term. Appreciate thyroid profile on admission. Will recheck. Cortisol level stable. Continue with IV levothyroxine 125 mcg daily for now. Qualifiers: Hypothyroidism type: unspecified Qualified Code(s): E03.9 - Hypothyroidism, unspecified (3) Acute hyponatremia: Severe hyponatremia initially of 119 on admission. Continue to monitor. Currently sodium levels normal. Repeat BMP in evening. 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 when beds available Monitor fistula output General surgery has evaluated, appreciate recommendations. (5) Urinary tract infection: Follow urine culture. Currently Klebsiella pneumonia. Broad-spectrum antibiotics as above. Qualifiers: Hematuria presence: with hematuria Urinary tract infection type: acute cystitis Qualified Code(s): N30.01 - Acute cystitis with hematuria (6) Acute encephalopathy: Acute metabolic encephalopathy Treat underlying infection and optimize electrolytes Avoid sedating medications Neurochecks Supportive care (7) Acute hyperkalemia: Resolved for now. Continue to monitor. (8) DINA (acute kidney injury): Acute kidney injury likely prerenal in the setting of sepsis and dehydration. Renal function is normal for now. Medical reconciliation done for nephrotoxic drugs. Monitor BMP daily for now. Monitor electrolytes. Replace phosphorus. (9) GERD (gastroesophageal reflux disease): Continue famotidine (10) Dementia: Continue home donepezil Continue home risperidone Plan DVT prophylaxis: CODE STATUS: DNR/DNI Famotidine for PUD PPx Plan for the day: Try to wean Levophed keeping mean artery pressure 65. Reports last electrolytes stable. Normal potassium needed today. Replace 1 g of IV magnesium. 1.6 today. Urine culture growing Klebsiella. Blood cultures so far negative. Continue with Zosyn. Continue with IV fluids at 100 cc/h. Awaiting bed at [facility]. PT evaluation. Out of bed to chair. Incentive spirometry. Attestations Medical Necessity Statement*: Requires further hospitalization for management of septic shock in setting of high output enterocutaneous fistula on Levophed, severe hypothyroidism while transferred to [facility] is awaited Critical Care Time: The high probability of a clinically significant, sudden or life threatening deterioration of the patient's [Cardiac, renal] system(s) required my full and direct attention, intervention and personal management. The critical care time is as shown. This time is in addition to time spent performing any reported procedures but includes the following: [x] Data and vital sign review and interpretation [x] Patient assessment, examination and intervention [x] Documentation [x] Medication orders and management Critical Care Time (min): 50 Coding Level of Care Code Critical Care >/= 30 minutes Critical care time (in minutes): 50 The high probability of a clinically significant, sudden or life threatening deterioration, as referenced in this documentation, required my full and direct attention, intervention and personal management. The critical care time shown is in addition to time spent performing any reported separately billable procedures and includes the following: [x] Data and vital sign review and interpretation [x] Patient assessment, examination and intervention [x] Medication orders and management [x] Patient/Family updates as able [x] Care Coordination and Documentation. Diagnoses Sepsis A41.9 Hypothyroidism E03.9 Hypothyroidism type: unspecified Acute hyponatremia E87.1 Fistula of small intestine K63.2 Urinary tract infection N30.01 Hematuria presence: with hematuria Urinary tract infection type: acute cystitis Acute encephalopathy G93.40 Acute hyperkalemia E87.5 DINA (acute kidney injury) N17.9 GERD (gastroesophageal reflux disease) K21.9 Dementia F03.90
[2024-04-15] MEDS: diphenoxylate/atropine Tablet 1 TAB PO (19:59)
[2024-04-15] MEDS: donepezil 5 MG Tablet 10 MG PO (19:59)
[2024-04-16] VITALS (27 sets, daily range): BP systolic 79–141; BP diastolic 50–83; PULSE 65–92; RESP 13–17; TEMP 36.6–36.7; O2SAT 92–100
[2024-04-16] MEDS: piperacillin-tazobactam 3.375 GM in sodium chloride 0.9% (plus) 100 ML IV (01:42)
--- NOTE | 2024-04-16 03:17 | PC.NURSE ---
[facility] Transfer called and stated patient has a bed in the medical ICU bed 8406 at [facility] Accepting Dr. is Dr. Honeycutt. Dr. Trujillo was contacted and reviewed patients chart and stated patient is suitable to go by ground ambulance. Telephone consent was obtained from patient's daughter by this nurse and Josh CORBIN. [facility] was called and stated they could take the patient at 7 am. Report called to [facility] Medical ICU and given to Sophie CORBIN.
[2024-04-16] MEDS: heparin 5,000 unit/mL INJ 1 mL 5000 UNIT SUBCUT (04:13)
[2024-04-16] MEDS: sodium chloride 0.9% 1,000 ML 100 ML IV (04:31)
[2024-04-16] MEDS: venlafaxine ER (24HR) 75 mg Capsule PO (05:10)
[2024-04-16 05:39] LABS: Basophils # 0.1 10^3/uL (0.0-0.1); Eosinophils # 1.1 10^3/uL (0.0-0.8); Eosinophils % 11.8 %; Lymphocytes # 2.5 10^3/uL (0.8-4.8); Lymphocytes % 27.2 %; Mean Corpuscular HGB Conc 31.8 g/dL (30-55); Mean Corpuscular Hemoglobin 29.2 pg (27-33); Mean Corpuscular Volume 91.7 fl (85-98); Mean Platelet Volume 9.6 fL (7.4-10.4); Monocytes # 0.6 10^3/uL (0.2-0.9); Monocytes % 6.1 %; Neutrophils # 4.96 10^3/uL (1.8-7.7); Neutrophils % 53.5 %; Nucleated Red Blood Cells % 0 %; Platelet Count 333 10^3/cmm (157-399); Red Cell Distribution Width 13.6 % (12.1-15.1); White Blood Count 9.29 10^3/uL (3.29-11.43)
[2024-04-16 06:02] LABS: Alanine Aminotransferase 17 U/L (0-33); Albumin Level 2.6 g/dL (3.5-5.2); Alkaline Phosphatase 111 U/L (35-105); Blood Urea Nitrogen 6 mg/dL (8-23); Calcium 7.7 mg/dL (8.5-10.5); Carbon Dioxide 23 mmol/L (22-29); Chloride 103 mmol/L (98-107); Creatinine Clr Calc Pharmacy 61.9909; Globulin 3.4 g/dL (1.3-4.6); Glucose 101 mg/dL (65-115); Osmolality Calculated 282 mOsm/kg (285-295); Sodium 137 mmol/L (136-145); Total Bilirubin 0.3 mg/dL (0.15-1.2)
[2024-04-16 06:03] LABS: Magnesium 1.7 mg/dL (1.7-2.3)
[2024-04-16 06:10] LABS: Anion Gap 14.8 (5-19); Aspartate Amino Transferase 19 U/L (0-32); Potassium 3.8 mmol/L (3.5-5.1)
[2024-04-16] MEDS: norepinephrine 4 MG/250 ML BAG 18.75 MG IV ×2 (06:19→07:51)
--- NOTE | 2024-04-16 08:00 | PC.NURSE ---
discharged to [facility] with [facility]. family at bedside.
--- NOTE | 2024-04-16 08:07 | PC.NURSE ---
transferred pt to [facility] via [facility]. family at bedside
--- NOTE | 2024-04-16 08:41 | P.TS_ITS ---
Transfer Summary Providers Date of Admission: 04/12/24 01:42 Date of Discharge/Transfer: 04/16/24 Attending Provider at Admission: Daniel Coronel MD Attending Provider at Transfer: Mark Cash MD Primary Care Provider: Everette Harmon Jr, MD Transfer Plans: Anticipated date of transfer: 04/16/24 . Diagnoses at Discharge Discharge Diagnosis (1) Sepsis: Status: Acute (2) Hypothyroidism: Status: Acute Qualifiers: Hypothyroidism type: unspecified Qualified Code(s): E03.9 - Hypothyroidism, unspecified (3) Acute hyponatremia: Status: Acute (4) Fistula of small intestine: Status: Acute (5) Urinary tract infection: Status: Acute Qualifiers: Hematuria presence: with hematuria Urinary tract infection type: acute cystitis Qualified Code(s): N30.01 - Acute cystitis with hematuria (6) Acute encephalopathy: Status: Acute (7) Acute hyperkalemia: Status: Acute (8) DINA (acute kidney injury): Status: Acute (9) GERD (gastroesophageal reflux disease): Status: Acute (10) Dementia: Status: Acute Reason for Visit Reason for Visit LEAKING FISTULA Brief History: History as per HPI: Paulina Kraus is a 74 year old female with a past medical history significant for complex abdominal surgeries including ostomy and abdominal wall reconstruction which 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 Patient is unable to provide any history on exam. Her 2 daughters at bedside and supportive. They help provide collateral information. They noticed that she was confused about 2 days ago. Progressively worsened over the past 2 days. They report that she has not interacting as she typically would. She follows at [facility] for her abdominal pathology. They reports she was post have surgery in 10 days to address her enterocutaneous fistula. In the emergency department, blood pressure was found to be soft at 87/54. Labs revealed leukocytosis to 19.91, thrombocytosis to 556, severe hyponatremia to 119, hyperkalemia to 6.0, hypochloremia at 80, metabolic acidosis with bicarb of 21, azotemia with BUN 83, elevated creatinine to 1.7, lactic acidosis to 2.7 and mildly elevated AST and alkaline phos. Urinalysis revealed 2+ leukocyte esterase, 25-40 WBCs, nitrite negative. TSH was markedly elevated at 55.27. Daughter reports has been on Synthroid they believe she is taking it as appropriate. General surgery consulted prior to consideration of admission. General surgery recommended transfer to tertiary care center for higher level of care of her enterocutaneous fistula with leak. Patient accepted to [facility]. She is pending bed. She will board with the hospitalist service for continued care while awaiting bed. Hospital Course Hospital Course Patient was admitted to the hospital for further management while she awaited a bed at [facility]. She was admitted to ICU for septic shock, started on broad-spectrum antibiotics and vasopressors along with fluid resuscitation. She continued to require IV fluids because of high output loss through enterocutaneous fistula. She remained afebrile and at her baseline mentation. During hospitalization she was found to have uncontrolled hypothyroidism for w hich she was transitioned over to IV levothyroxine. She is being transferred to the acute hospital on Levophed at 5 for further management. During hospitalization she was followed up with surgical team as well. Because of high output fluid loss through enterocutaneous fistula she was made n.p.o. And continued on fluid resuscitation. Physical Exam Narrative: General: No acute distress, AO x3, slow to respond HEENT: PERRLA, pupils bilaterally equal and reactive Chest: Normal vesicular breath sounds, no added sounds, equal good air entry bilaterally CVS: S1-S2 regular, ejection systolic murmur at aortic region 2/6 radiating to carotids, no tachycardia, no gallops, no rubs Abdomen: Soft, nontender, bowel sounds sluggish, colostomy present, medial to colostomy enterocutaneous fistula present with leakage and excoriation around the skin Neuro: No focal deficits, no facial deformity, AO x3, power 5/5 in all limbs Resp: COMMON NORMALS: clear to auscultation bilaterally AUSCULTATION: clear to auscultation bilaterally Cardio: COMMON NORMALS: regular rate, S1 normal heart sound present and S2 normal heart sound present RATE: regular rate HEART SOUNDS: S1 normal heart sound present, S2 normal heart sound present and Murmur heart sound present Urinary Catheter Management: Thompson: Cath Placed During This Visit: yes Reason for Continuing Indwelling Catheter: Accurate Measurement of Urinary Output in Critically Ill Patients Urinary Catheter Date of Insertion: 04/11/24 Urinary Catheter Time of Insertion: 20:17 TS Data Studies Completed and Pending Pending at discharge Category Date Time Status Blood Culture Stat Lab 04/11/24 18:46 Results Completed Studies During Hospitalization Category Date Time Status CT chest abdpel w/*[id number] Stat Cat Scan 04/11/24 18:00 Completed XR chest 1V portable [id number] Stat Exams 04/11/24 18:00 Completed XR chest 1V portable [id number] Stat Exams 04/12/24 21:35 Completed Laboratory Last Values WBC 9.29 10^3/uL (3.29-11.43) 04/16/24 04:06 RBC 3.60 10^6/uL (3.85-5.65) L 04/16/24 04:06 Hgb 10.50 g/dL (11.27-16.99) L 04/16/24 04:06 Hct 33.0 % (36-47) L 04/16/24 04:06 MCV 91.7 fl (85-98) 04/16/24 04:06 MCH 29.2 pg (27-33) 04/16/24 04:06 MCHC 31.8 g/dL (30-55) 04/16/24 04:06 RDW 13.6 % (12.1-15.1) 04/16/24 04:06 Plt Count 333 10^3/cmm (157-399) 04/16/24 04:06 MPV 9.6 fL (7.4-10.4) 04/16/24 04:06 Neut % (Auto) 53.5 % 04/16/24 04:06 Lymph % (Auto) 27.2 % 04/16/24 04:06 Mineral % (Auto) 6.1 % 04/16/24 04:06 Eos % (Auto) 11.8 % 04/16/24 04:06 Baso % (Auto) 1.0 % 04/16/24 04:06 Neut # (Auto) 4.96 10^3/uL (1.8-7.7) 04/16/24 04:06 Lymph # (Auto) 2.5 10^3/uL (0.8-4.8) 04/16/24 04:06 Mineral # (Auto) 0.6 10^3/uL (0.2-0.9) 04/16/24 04:06 Eos # (Auto) 1.1 10^3/uL (0.0-0.8) H 04/16/24 04:06 Baso # (Auto) 0.1 10^3/uL (0.0-0.1) 04/16/24 04:06 Nucleated RBC % (auto) 0 % 04/16/24 04:06 Nucleated RBCs # 0.0 /100WBC 04/16/24 04:06 Sodium 137 mmol/L (136-145) 04/16/24 04:06 Potassium 3.8 mmol/L (3.5-5.1) 04/16/24 04:06 Chloride 103 mmol/L (98-107) 04/16/24 04:06 Carbon Dioxide 23 mmol/L (22-29) 04/16/24 04:06 Anion Gap 14.8 (5-19) 04/16/24 04:06 BUN 6 mg/dL (8-23) L 04/16/24 04:06 Creatinine 0.5 mg/dL (0.5-0.9) 04/16/24 04:06 GFR Calculation Not Reportable 04/16/24 04:06 Glucose 101 mg/dL (65-115) 04/16/24 04:06 POC Glucose 111 mg/dL (70-110) H 04/13/24 16:02 Estimat Average Glucose 114 04/14/24 04:35 Hemoglobin A1c 5.6 % (4.0-6.0) 04/14/24 04:35 Calculated Osmolality 282 mOsm/kg (285-295) L 04/16/24 04:06 Lactic Acid 2.7 mmol/L (0.5-2.2) H 04/11/24 18:46 Lactic Acid (Sepsis) 1.5 mmol/L (0.5-2.2) 04/11/24 21:47 Calcium 7.7 mg/dL (8.5-10.5) L 04/16/24 04:06 Phosphorus 2.4 mg/dL (2.5-4.5) L 04/15/24 03:58 Magnesium 1.7 mg/dL (1.7-2.3) 04/16/24 04:06 Iron 39 ug/dL (37-145) 04/13/24 06:07 TIBC 290 mcg/dl 04/13/24 06:07 % Saturation 13.4 % (20-50) L 04/13/24 06:07 Unsat Iron Binding 251 ug/dL (112-347) 04/13/24 06:07 Total Bilirubin 0.3 mg/dL (0.15-1.2) 04/16/24 04:06 AST 19 U/L (0-32) 04/16/24 04:06 ALT 17 U/L (0-33) 04/16/24 04:06 Alkaline Phosphatase 111 U/L (35-105) H 04/16/24 04:06 Creatine Kinase 852 U/L (26-192) H* 04/12/24 05:29 Total Protein 6.0 g/dL (6.6-8.7) L 04/16/24 04:06 Albumin 2.6 g/dL (3.5-5.2) L 04/16/24 04:06 Globulin 3.4 g/dL (1.3-4.6) 04/16/24 04:06 Triglycerides 197 mg/dL (0-150) H 04/14/24 04:35 Cholesterol 135 mg/dL (0-200) 04/14/24 04:35 LDL Cholesterol, Calc 57 mg/dL (50-129) 04/14/24 04:35 Total VLDL Cholesterol 39 mg/dL (0-30) H 04/14/24 04:35 HDL Cholesterol 39 mg/dL (60-100) L 04/14/24 04:35 Cholesterol/HDL Ratio 3.46 mg/dL (0.0-4.40) 04/14/24 04:35 Vitamin B12 425 pg/mL (232-1245) 04/13/24 06:07 Folate 6.1 ng/mL (4.8-37.3) 04/14/24 04:35 Procalcitonin 0.16 ng/mL (0-0.5) 04/13/24 06:07 TSH 28.84 uIU/mL (0.27-4.20) H 04/13/24 06:07 Free T4 0.77 ng/dL (0.82-1.77) L 04/12/24 05:29 Random Cortisol 23.54 ug/dL (2.47-19.5) H 04/13/24 06:07 Urine Color Yellow (Yellow) 04/11/24 20:14 Urine Appearance Cloudy (CLEAR) A 04/11/24 20:14 Urine pH 5 (5-7) 04/11/24 20:14 Ur Specific [place] 1.020 (1.005-1.030) 04/11/24 20:14 Urine Protein Neg (Negative) 04/11/24 20:14 Urine Glucose (UA) Norm (Normal) 04/11/24 20:14 Urine Ketones Negative (Negative) 04/11/24 20:14 Urine Blood Neg (Negative) 04/11/24 20:14 Urine Nitrate Negative (Negative) 04/11/24 20:14 Urine Bilirubin Neg (Negative) 04/11/24 20:14 Urine Urobilinogen Neg mg/dL (Negative) 04/11/24 20:14 Ur Leukocyte Esterase 2+ (Negative) H 04/11/24 20:14 Urine RBC 5-10 /hpf (0-2) H 04/11/24 20:14 Urine WBC 25-40 /hpf (0-5) H 04/11/24 20:14 Ur Squamous Epith Cells 0-4 /hpf (0-5) H 04/11/24 20:14 Calcium Oxalate Crystal 0-4 /hpf H 04/11/24 20:14 Amorphous Sediment 1+ /hpf 04/11/24 20:14 Urine Bacteria 3+ /hpf (NONE) H 04/11/24 20:14 Hyaline Casts 5-10 /lpf H 04/11/24 20:14 Urine Mucus Trace /hpf 04/11/24 20:14 Vancomycin Trough 11.6 ug/mL (10-15) 04/14/24 09:49 MRSA (PCR) Not detected (NOT DETECTED) 04/12/24 06:10 Radiology Impressions Chest/Abdomen/Pelvis CT 04/11/24 18:00 IMPRESSION: 1. No acute thoracic findings. 2. Coronary calcification. IMPRESSION: 1. Comparison CT 06/19/2023. Interval improvement of anterior lower abdominal wall soft tissue edema/inflammatory response. 2. 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 3. Midline inferior ventral localized protrusion of anterior small bowel presumably related to the known fistula. No regional drainable abscess or significant stranding or obstruction. 4. A new left paramedian ventral hernia is noted just inferior and medial to the ostomy as described containing small amount of fat and short segment of bowel without obstruction. 5. Persistent right lower quadrant anterior deep subcutaneous collection with slight interval decrease in size however it demonstrates thick enhancing rim. Continued clinical and imaging follow-up should be obtained. 6. Mild hepatosplenomegaly. Probable hepatic steatosis. 7. No acute abdominopelvic findings otherwise. COMMENTS: Consistent with the [employer] [employer]'s Incidental Findings Committee white paper (J Am Ana Radiol 2018): Any incidental renal lesion less than 1 cm or classified as too small to characterize, or any incidental cystic renal lesion characterized as simple-appearing, is likely benign. No follow-up imaging is recommended for these lesions per consensus recommendations based on imaging criteria. Chest X-Ray 04/12/24 21:35 IMPRESSION: Left upper extremity PICC in radiographically appropriate position. Recent Clincial Data Last Vital Signs Temp 97.9 F 04/16/24 05:35 Pulse 84 04/16/24 05:26 Resp 14 04/16/24 05:15 BP 141/83 04/16/24 05:15 Pulse Ox 95 04/16/24 05:15 O2 Del Method Room Air 04/14/24 18:00 Vital Signs Temp Pulse Resp BP Pulse Ox 04/16/24 05:35 97.9 F 04/16/24 05:26 84 04/16/24 05:15 79 14 141/83 95 04/16/24 05:00 85 16 125/66 96 04/16/24 04:45 84 16 128/63 96 04/16/24 04:30 79 14 118/58 96 04/16/24 04:15 85 16 118/58 96 04/16/24 04:00 92 16 110/54 96 04/16/24 03:45 72 14 118/67 04/16/24 03:30 85 14 108/57 96 04/16/24 03:15 78 14 110/59 96 04/16/24 03:00 73 15 114/59 96 04/16/24 02:45 76 14 90/53 96 04/16/24 02:30 79 13 114/58 95 04/16/24 02:15 81 15 106/53 95 04/16/24 02:00 73 17 79/53 96 04/16/24 01:45 71 14 99/53 95 04/16/24 01:30 76 15 112/65 95 04/16/24 01:15 81 14 112/65 96 04/16/24 01:00 75 13 92/50 95 04/16/24 00:45 78 14 121/57 04/16/24 00:30 80 15 121/57 92 04/16/24 00:15 83 13 110/54 100 04/16/24 00:00 67 15 129/51 100 04/15/24 23:45 68 17 129/51 100 04/15/24 23:30 73 14 94/45 100 04/15/24 23:15 77 14 88/47 100 04/15/24 23:08 98.8 F 04/15/24 23:00 75 17 96/55 04/15/24 22:45 69 15 92/46 04/15/24 22:30 75 19 H 84/46 94 04/15/24 22:15 82 16 84/48 95 04/15/24 22:00 70 04/15/24 22:00 71 14 94/52 95 04/15/24 21:45 73 18 95/48 95 04/15/24 21:30 78 16 89/49 96 04/15/24 21:15 79 15 106/58 96 04/15/24 21:00 85 20 H 106/58 93 04/15/24 20:45 79 14 92/54 94 Intake & Output/Weight 04/14/24 04/15/24 04/16/24 04/17/24 06:59 06:59 06:59 06:59 Intake Total 5458.125 / 5458.125 4993.313 / 4993.313 3949.125 / 3949.125 .75 / .75 Output Total 975 / 975 1999 / 1999 1000 / 1000 Balance 4483.125 / 4483.125 2993.313 / 2993.313 2949.125 / 2949.125 28.75 / 28.75 Weight 88.995 kg 91.081 kg 88.496 kg Vitals Last Vital Signs Temp 97.9 F 04/16/24 05:35 Pulse 84 04/16/24 05:26 Resp 14 04/16/24 05:15 BP 141/83 04/16/24 05:15 Pulse Ox 95 04/16/24 05:15 O2 Del Method Room Air 04/14/24 18:00 TS Medications Medications Acetaminophen (Acetaminophen 325 Mg Tablet) 650 mg PO Q6H PRN PRN Reason: Mild/Mod Pain Or Temp >/= 101 Last Admin: 04/13/24 15:28 Dose: 650 mg Aspirin (Aspirin 81 Mg Ec Tablet) 81 mg PO DAILY [facility] Last Admin: 04/15/24 08:36 Dose: 81 mg Calcium Carbonate (Calcium Carbonate 500 Mg Chew Tablet) 1,000 mg PO Q4H PRN PRN Reason: DYSPEPSI Diphenoxylate HCl/Atropine (Diphenoxylate/Atropine Tablet) 1 tab PO Q4H PRN PRN Reason: DIARRHEA Last Admin: 04/15/24 19:59 Dose: 1 tab Donepezil HCl (Donepezil 5 Mg Tablet) 10 mg PO BEDTIME [facility] Last Admin: 04/15/24 19:59 Dose: 10 mg Famotidine (Famotidine 20 Mg Tablet) 20 mg PO BID [facility] Last Admin: 04/15/24 18:12 Dose: 20 mg Fluconazole (Fluconazole 100 Mg Tablet) 400 mg PO DAILY [facility] Last Admin: 04/15/24 08:36 Dose: 400 mg Heparin Sodium (Porcine) (Heparin 5,000 Unit/Ml Inj 1 Ml) 5,000 unit SUBCUT Q12H [facility] Last Admin: 04/16/24 04:13 Dose: 5,000 unit Piperacillin Sod/Tazobactam (Sod 3.375 gm/ Sodium Chloride) 100 mls @ 25 mls/hr IV Q8H [facility]; Protocol Last Infusion: 04/16/24 05:44 Dose: Infused Norepinephrine Bitartrate (Levophed) 4 mg in 250 mls @ 0 mls/hr IV .Q0M [facility]; Protocol Last Admin: 04/16/24 07:51 Dose: 5 mcg/min, 18.75 mls/hr Sodium Chloride (Sodium Chloride 0.9%) 1,000 mls @ 100 mls/hr IV .Q10H [facility] Last Admin: 04/16/24 04:31 Dose: 100 mls/hr Levothyroxine Sodium (Levothyroxine 100 Mcg Sdv) 125 mcg IVP DAILY [facility] Last Admin: 04/15/24 08:36 Dose: 125 mcg Non-Formulary Medication (Lactobacillus Acidophilus [Probiotic]) 1 mmu cells PO DAILY [facility] Ondansetron HCl (Ondansetron 2 Mg/Ml Sdv 2 Ml) 4 mg IVP Q8H PRN PRN Reason: vomiting, or N/V if npo Polysaccharide Iron Complex (Iron Polysaccharide Complex 150 Mg Capsule) 150 mg PO DAILY [facility] Last Admin: 04/15/24 08:36 Dose: 150 mg Potassium Phosphate (Phosphorus 250 Mg Tablet) 250 mg PO BID [facility] Last Admin: 04/15/24 18:11 Dose: 250 mg Risperidone (Risperidone 0.25 Mg Tablet) 0.5 mg PO BID [facility] Last Admin: 04/15/24 18:11 Dose: 0.5 mg Venlafaxine HCl (Venlafaxine Er (24hr) 75 Mg Capsule) 75 mg PO QAM [facility] Last Admin: 04/16/24 05:10 Dose: 75 mg Discontinued Medications Diphenoxylate HCl/Atropine (Diphenoxylate/Atropine Tablet) 2 tab PO ONCE ONE Stop: 04/14/24 11:14 Last Admin: 04/14/24 12:01 Dose: 2 tab Sodium Chloride (Sodium Chloride 0.9%) 1,000 mls @ 999 mls/hr IV .Q1H1M ONE Stop: 04/11/24 20:40 Last Infusion: 04/11/24 20:00 Dose: Infused Piperacillin Sod/Tazobactam (Sod 3.375 gm/ Sodium Chloride) 50 mls @ 100 mls/hr IV ONCE ONE; Protocol Stop: 04/11/24 21:16 Last Infusion: 04/11/24 22:15 Dose: Infused Sodium Chloride (Sodium Chloride 0.9%) 1,000 mls @ 250 mls/hr IV .Q4H [facility] Last Infusion: 04/12/24 22:49 Dose: Infused Piperacillin Sod/Tazobactam (Sod 3.375 gm/ Sodium Chloride) 50 mls @ 100 mls/hr IV Q6H [facility]; Protocol Last Infusion: 04/12/24 13:31 Dose: Infused Vancomycin HCl / Sodium (Chloride) 250 mls @ 0 mls/hr [id number] PROTOCOL [facility]; Protocol Vancomycin/PEG/NADA/Lysine/Water (Vancocin) 1,250 mg in 250 mls @ 250 mls/hr IV Q36H [facility] Last Infusion: 04/12/24 05:46 Dose: Infused Vancomycin/PEG/NADA/Lysine/Water (Vancocin) 1,250 mg in 250 mls @ 250 mls/hr IV Q18H [facility] Last Infusion: 04/14/24 12:27 Dose: Infused Sterile Water (Water) Confirm Administered Dose 10 mls @ as directed .ROUTE .STK-MED ONE Stop: 04/14/24 00:32 Last Admin: 04/14/24 01:29 Dose: Not Given Lidocaine HCl 5 ml/ Potassium (Chloride) 105 mls @ 26.25 mls/hr IV Q4H [facility] Stop: 04/14/24 19:14 Last Infusion: 04/15/24 09:17 Dose: Infused Magnesium Sulfate/Dextrose (Magnesium Sulfate Premix) 1 gm in 100 mls @ 200 m ls/hr IV ONCE ONE Stop: 04/15/24 08:34 Last Infusion: 04/15/24 09:17 Dose: Infused Iohexol (Iohexol 350 Mg/Ml 500 Ml Btl (Per Ml)) 0 ml IV ONCE ONE Stop: 04/11/24 21:06 Last Admin: 04/11/24 21:05 Dose: 100 ml Ondansetron HCl (Ondansetron 4 Mg Tablet) 4 mg PO Q8H PRN PRN Reason: NAUSEA Senna (Sennosides 8.6 Mg Tablet) 17.2 mg PO BEDTIME [facility] Last Admin: 04/13/24 21:42 Dose: Not Given Sodium Polystyrene Sulfonate (Sodium Polystyrene Sulfonate 15 Gm/60 Ml Btl) 15 gm PO ONCE ONE Stop: 04/12/24 06:01 Last Admin: 04/12/24 09:42 Dose: Not Given Allergies Latex, Natural Rubber Allergy (Unknown, Verified 04/11/24 18:13) unknown tomato Allergy (Unknown, Verified 04/11/24 18:13) unknown Home Medications famotidine 20 mg tablet 20 mg PO BID 12/06/21 [History Confirmed 04/13/24] venlafaxine 75 mg capsule,extended release 24 hr 75 mg PO QAM 12/06/21 [History Confirmed 04/13/24] donepezil 10 mg tablet 10 mg PO BEDTIME 03/06/23 [History Confirmed 04/13/24] Lactobacillus acidophilus 10 billion cell capsule (Probiotic) 10,000 mmu cells PO DAILY 06/19/23 [History Confirmed 04/13/24] acetaminophen 325 mg capsule 650 mg PO QID PRN Pain 06/19/23 [History Confirmed 04/13/24] aspirin 81 mg tablet,delayed release 81 mg PO DAILY 06/19/23 [History Confirmed 04/13/24] risperidone 0.5 mg tablet 0.5 mg PO BID 06/19/23 [History Confirmed 04/13/24] amino acids-protein hydrolysate 15 gram-101 kcal/30 mL oral liquid 1 ea PO BID 04/13/24 [History Confirmed 04/13/24] diphenhydramine HCl 25 mg tablet (Benadryl Allergy) 25 mg PO Q6H PRN ALERGIC REACTION 04/13/24 [History Confirmed 04/13/24] hydrocodone 5 mg-acetaminophen 325 mg tablet 1 tab PO Q4H PRN Pain 04/13/24 [History Confirmed 04/13/24] levothyroxine 150 mcg tablet 150 mcg PO QAM 04/13/24 [History Confirmed 04/13/24] multivitamin 1 tab PO QAM 04/13/24 [History Confirmed 04/13/24] simethicone 80 mg chewable tablet 80 mg PO Q12H PRN Gastric Reflux 04/13/24 [History Confirmed 04/13/24] sodium hypochlorite 0.125 % solution (Dakin's Solution) 1 applic topical DAILY 04/13/24 [History Confirmed 04/13/24] Discharge Plan Discharge Patient Disposition: Xfer Short-Term Hosp Condition: Stable Prescriptions: No Action venlafaxine 75 mg capsule,extended release 24hr 75 mg PO QAM famotidine 20 mg tablet 20 mg PO BID aspirin [Aspir-81] 81 mg Tablet,Delayed Release (Dr/Ec) 81 mg PO DAILY acetaminophen 325 mg Capsule 650 mg PO QID PRN (Reason: Pain) Probiotic 10 billion cell Capsule 10,000 mmu cells PO DAILY risperidone 0.5 mg tablet 0.5 mg PO BID donepezil 10 mg tablet 10 mg PO BEDTIME Daily Vitamin Tablet 1 tab PO QAM hydrocodone-acetaminophen 5-325 mg tablet 1 tab PO Q4H PRN (Reason: Pain) Benadryl Allergy 25 mg Tablet 25 mg PO Q6H PRN (Reason: ALERGIC REACTION) levothyroxine 150 mcg tablet 150 mcg PO QAM Gas-X 80 mg Tablet,Chewable 80 mg PO Q12H PRN (Reason: Gastric Reflux) Dakin's Solution 0.125 % Solution 1 applic TOPICAL DAILY Pro-Stat 101 15-101 gram-kcal/30 mL Liquid 1 ea PO BID Referrals: [facility] [Outside] Gerald Cooper [Referring] - Patient Instructions: Altered Mental Status (ED), Opioid Safety Transfer Attestations Time Spent in Transfer Care: greater than 30 min Quality Metrics Clinical Quality Measures [ No reported AMI, CVA or VTE this stay] Coding Level of Care Code 51690 Total time (in minutes) for Discharge: 50 Diagnoses Sepsis A41.9 Hypothyroidism E03.9 Hypothyroidism type: unspecified Acute hyponatremia E87.1 Fistula of small intestine K63.2 Urinary tract infection N30.01 Hematuria presence: with hematuria Urinary tract infection type: acute cystitis Acute encephalopathy G93.40 Acute hyperkalemia E87.5 DINA (acute kidney injury) N17.9 GERD (gastroesophageal reflux disease) K21.9 Dementia F03.90
== END 2024-04-16 08:00 | disposition short-term general hospital (02) | DRG 871 ==
LOC: ER 04-12 01:02 → ICU 04-12 02:23
PROVIDERS: Emergency Medicine; Admitting Provider Internal Medicine; Emergency Provider Emergency Medicine; PCP Family Medicine; Visit Provider Student in an Organized Health Care Education/Training Program
DX: A41.9 Sepsis, unspecified organism (principal); G93.41 Metabolic encephalopathy; N17.9 Acute kidney failure, unspecified; K63.2 Fistula of intestine; N30.01 Acute cystitis with hematuria; L03.311 Cellulitis of abdominal wall; E87.1 Hypo-osmolality and hyponatremia; E87.20 Acidosis, unspecified; R65.20 Severe sepsis without septic shock; J44.9 Chronic obstructive pulmonary disease, unspecified; K21.9 Gastro-esophageal reflux disease without esophagitis; E03.9 Hypothyroidism, unspecified; E78.5 Hyperlipidemia, unspecified; I35.0 Nonrheumatic aortic (valve) stenosis; F17.210 Nicotine dependence, cigarettes, uncomplicated; E87.5 Hyperkalemia; K43.2 Incisional hernia without obstruction or gangrene; F03.90 Unspecified dementia, unspecified severity, without behavioral disturbance, psychotic disturbance, mood disturbance, and anxiety; I25.2 Old myocardial infarction; Z87.01 Personal history of pneumonia (recurrent); Z85.43 Personal history of malignant neoplasm of ovary
CPT/HCPCS: 36415; 36416; 36573; 36592; 51702; 71045; 71260; 74177; 80053; 80061; 80069; 80202; 81001; 82533; 82550; 82607; 82746; 82962; 83036; 83540; 83550; 83605; 83735; 84100; 84145; 84439; 84443; 85025; 87040; 87077; 87086; 87186; 87641; 93005; 96365; 96372; 96374; 96376; 97110; 97161; 99291; C1751; J1644; J2543; J3370; J3475; J3480; J3490; J7030; Q9967

== ENCOUNTER 2024-04-25 08:21 | Emergency (ER) | payer MEDICARE, MEDICAID, SELFPAY ==
[2024-04-25] VITALS (10 sets, daily range): BP systolic 81–127; BP diastolic 57–82; PULSE 64–72; RESP 15–20; TEMP 36.6; O2SAT 94–98
--- NOTE | 2024-04-25 08:44 | ECG_ITS ---
[facility] Test Date: 2024-04-25 Pat Name: Paulina Kraus Department: Room: Gender: Female Director Of Blood: : 1950 Requested By: Raymundo Engle Order Number: [id number] Ru MD: Angel Casillas M.D. Measurements Intervals [place] Rate: 65 P: -9 NV: 141 QRS: -17 QRSD: 93 T: 95 QT: 386 QTc: 402 Interpretive Statements SINUS RHYTHM WITH SINUS ARRHYTHMIA LEFT VENTRICULAR HYPERTROPHY AND ST-T CHANGE [VOLTAGE CRITERIA PLUS ST/T ABNORMALITY] POSSIBLE ANTERIOR MYOCARDIAL INFARCTION , OF INDETERMINATE AGE [30 ms Q WAVE IN V3/V4, OR R < 0.2 mV IN V4] INTERPRETATION BASED ON A DEFAULT AGE OF 40 YEARS Compared to ECG 04/11/2024 20:43:01 No significant changes Electronically Signed On 04-26-2024 9:51:48 CDT by Angel Casillas M.D. [email or web address]
--- NOTE | 2024-04-25 08:45 | XRR_ITS ---
PROCEDURE INFORMATION: Exam: XR Chest Exam date and time: 04/25/2024 9:12 AM Age: 74 years old Clinical indication: Other: Decreased responsive; Patient HX: PT presents to ED via EMS from [facility] for C/O AMS. Per EMS PT was released from [facility] where abd fistula was placed. PT has colostomy. Per [facility] staff, PT wouldn't stay awake . PT has HX of alzheimers/dementia, copd. Blood glucose 101 via EMS. PT C/O buttocks, back pain, denies abd pain. PT alert to name. PT slow to answer, sometimes unwilling to answer, blank stares. PT pupils pinpoint. TECHNIQUE: Imaging protocol: Radiologic exam of the chest. Views: 1 view. COMPARISON: CR XR chest 1V portable [id number] 04/12/2024 9:40 PM FINDINGS: Lungs: Unremarkable. No consolidation. Pleural spaces: Unremarkable. No pleural effusion. No pneumothorax. Heart/Mediastinum: Unremarkable. No cardiomegaly. Bones/joints: Mild multilevel spondylosis no acute. XR/XR chest 1V portable [id number] IMPRESSION: Disease.
--- NOTE | 2024-04-25 08:55 | ED_ITS ---
HPI - Altered Mental Status 2 General: Chief Complaint: Altered Mental Status Stated Complaint: AMS Time Seen by Provider: 04/25/24 08:27 History of Present Illness: 74-year-old female sent in by nursing ho to be evaluated. They report this morning she was nonresponsive patient is just recently discharged from [facility]. Patient's main complaint to me is back pain and is not sure why she is in the ER. Review of Systems 2 Const: Reports: other (Please see HPI); Denies: fever(s) or chills Card: Denies: chest pain or palpitations Resp: Denies: dyspnea GI: Denies: abdominal pain, nausea or vomiting Musc: Reports: back pain (Chronic) PFSH ED 2 PFSH: Medical History Acute kidney insufficiency Altered mental status Acute non-ST elevation myocardial infarction (NSTEMI) Abdominal pain Incisional hernia without obstruction or gangrene Pneumonia Fall Acute cystitis Aortic stenosis Hernia Ovarian cancer Bowel obstruction DINA (acute kidney injury) COPD exacerbation Closed head injury GERD (gastroesophageal reflux disease) Dyslipidemia Hypothyroidism COPD (chronic obstructive pulmonary disease) Surgical History H/O: hysterectomy Social History Smoking and tobacco/nicotine status: current every day tobacco/nicotine user Physical Exam 2 Const: COMMON NORMALS: no acute distress and alert Eye: OTHER: Pinpoint Resp: COMMON NORMALS: normal respiratory effort, No use of accessory muscles and clear to auscultation bilaterally AUSCULTATION: clear to auscultation bilaterally Cardio: COMMON NORMALS: regular rate and regular rhythm RATE: regular rate RHYTHM: regular rhythm Extremity: COMMON NORMALS: normal to inspection and full ROM Neuro: SENSORIUM/ORIENTATION: Yes alert Psych: COMMON NORMALS: mental status grossly normal and cooperative Course 2 Vital Signs: Vital signs: Vital Signs Temperature 97.8 F 04/25/24 08:22 Pulse Rate 72 04/25/24 10:30 Respiratory Rate 16 04/25/24 10:25 Blood Pressure 127/82 04/25/24 10:30 Pulse Oximetry 98 04/25/24 10:25 Oxygen Delivery Wi thod Room Air 04/25/24 08:22 MDM - Altered Mental Status Medical Decision Making Patient did not show any signs of confusion or altered mental status while in the ER. Patient's labs were ordered reviewed and showed no acute findings. Patient had initial mild low blood pressure but her blood pressure was stable otherwise throughout the ER stay. Family reports that she has had some issues of on and off low blood pressures that been going on since she was hospitalized a little bit before. Lab Data 04/25/24 10:24 04/25/24 10:24 Radiology Impressions Chest X-Ray 04/25/24 08:45 IMPRESSION: Disease. ADDENDUM: 04/25/24 1042 ADDENDUM: The impression in this report should read No acute disease . Laboratory Results WBC 7.87 10^3/uL (3.29-11.43) 04/25/24 10:24 Corrected WBC Cancelled 04/25/24 09:18 RBC 4.10 10^6/uL (3.85-5.65) 04/25/24 10:24 Hgb 12.20 g/dL (11.27-16.99) 04/25/24 10:24 Hct 39.2 % (36-47) 04/25/24 10:24 MCV 95.6 fl (85-98) 04/25/24 10:24 MCH 29.8 pg (27-33) 04/25/24 10:24 MCHC 31.1 g/dL (30-55) 04/25/24 10:24 RDW 14.6 % (12.1-15.1) 04/25/24 10:24 Plt Count 318 10^3/cmm (157-399) 04/25/24 10:24 MPV 9.8 fL (7.4-10.4) 04/25/24 10:24 Gran % Cancelled 04/25/24 09:18 Neut % (Auto) 52.7 % 04/25/24 10:24 Lymph % (Auto) 37.4 % 04/25/24 10:24 Barry % (Auto) 6.0 % 04/25/24 10:24 Eos % (Auto) 2.5 % 04/25/24 10:24 Baso % (Auto) 1.0 % 04/25/24 10:24 Neut # (Auto) 4.15 10^3/uL (1.8-7.7) 04/25/24 10:24 Lymph # (Auto) 2.9 10^3/uL (0.8-4.8) 04/25/24 10:24 Barry # (Auto) 0.5 10^3/uL (0.2-0.9) 04/25/24 10:24 Eos # (Auto) 0.2 10^3/uL (0.0-0.8) 04/25/24 10:24 Baso # (Auto) 0.1 10^3/uL (0.0-0.1) 04/25/24 10:24 Absolute Gran (auto) Cancelled 04/25/24 09:18 Nucleated RBC % (auto) 0 % 04/25/24 10:24 Nucleated RBCs # 0.0 /100WBC 04/25/24 10:24 Sodium 136 mmol/L (136-145) 04/25/24 10:24 Potassium 4.5 mmol/L (3.5-5.1) 04/25/24 10:24 Chloride 100 mmol/L (98-107) 04/25/24 10:24 Carbon Dioxide 23 mmol/L (22-29) 04/25/24 10:24 Anion Gap 17.5 (5-19) 04/25/24 10:24 BUN 11 mg/dL (8-23) 04/25/24 10:24 Creatinine 0.6 mg/dL (0.5-0.9) 04/25/24 10:24 GFR Calculation Not Reportable 04/25/24 10:24 Glucose 91 mg/dL (65-115) 04/25/24 10:24 Calculated Osmolality 281 mOsm/kg (285-295) L 04/25/24 10:24 Calcium 8.8 mg/dL (8.5-10.5) 04/25/24 10:24 Total Bilirubin 0.4 mg/dL (0.15-1.2) 04/25/24 10:24 AST 14 U/L (0-32) 04/25/24 10:24 ALT 7 U/L (0-33) 04/25/24 10:24 Alkaline Phosphatase 102 U/L (35-105) 04/25/24 10:24 Total Protein 6.8 g/dL (6.6-8.7) 04/25/24 10:24 Albumin 3.0 g/dL (3.5-5.2) L 04/25/24 10:24 Globulin 3.8 g/dL (1.3-4.6) 04/25/24 10:24 All radiology interpretation(s) finalized by discharge EKG Data EKG 1: I personally reviewed and interpreted this EKG as follows: EKG interpretation date: 04/25/24 EKG interpretation time: 08:30 Interpretation: Heart rate 65, [place] 141, QRS 93, no acute ST changes or elevation noted. Unchanged EKG. Discharge Plan Discharge Patient Disposition: Home Clinical Impression: Dementia, Decreased responsiveness Condition: Stable Prescriptions: No Action venlafaxine 75 mg capsule,extended release 24hr 75 mg PO QAM famotidine 20 mg tablet 20 mg PO BID aspirin [Aspir-81] 81 mg Tablet,Delayed Release (Dr/Ec) 81 mg PO DAILY acetaminophen 325 mg Capsule 650 mg PO QID PRN (Reason: Pain) Probiotic 10 billion cell Capsule 10,000 mmu cells PO DAILY risperidone 0.5 mg tablet 0.5 mg PO BID donepezil 10 mg tablet 10 mg PO BEDTIME Daily Vitamin Tablet 1 tab PO QAM hydrocodone-acetaminophen 5-325 mg tablet 1 tab PO Q4H PRN (Reason: Pain) Benadryl Allergy 25 mg Tablet 25 mg PO Q6H PRN (Reason: ALERGIC REACTION) levothyroxine 150 mcg tablet 150 mcg PO QAM Gas-X 80 mg Tablet,Chewable 80 mg PO Q12H PRN (Reason: Gastric Reflux) Dakin's Solution 0.125 % Solution 1 applic TOPICAL DAILY Pro-Stat 101 15-101 gram-kcal/30 mL Liquid 1 ea PO BID Discharge Orders: Discharge ED (Routine); Ordered 04/25/24 Ordered By: Raymundo Engle Referrals: Everette Harmon Jr, MD [Primary Care Provider] - Discharge Diet: Advance as tolerated Discharge Activity: Increase activity as tolerated Patient Instructions: Altered Mental Status (ED), Opioid Safety, Pain Management Activity Restrictions/Additional Instructions: Please follow-up with your primary care provider and have medications reviewed. Return to the ER as needed. Ensure she is drinking plenty of fluids. Coding Level of Care Code ED Operations And Maintenance Technican for Brendan Peralta
--- NOTE | 2024-04-25 09:13 | PC.NURSE ---
pt's initial triage blood pressure hypotensive, pt placed in trendelenburg, blood pressure repeat 101/75. Dr. Engle notified.
[2024-04-25 10:28] LABS: Basophils # 0.1 10^3/uL (0.0-0.1); Eosinophils # 0.2 10^3/uL (0.0-0.8); Eosinophils % 2.5 %; Hematocrit 39.2 % (36-47); Lymphocytes # 2.9 10^3/uL (0.8-4.8); Lymphocytes % 37.4 %; Mean Corpuscular HGB Conc 31.1 g/dL (30-55); Mean Corpuscular Hemoglobin 29.8 pg (27-33); Mean Corpuscular Volume 95.6 fl (85-98); Mean Platelet Volume 9.8 fL (7.4-10.4); Monocytes # 0.5 10^3/uL (0.2-0.9); Neutrophils # 4.15 10^3/uL (1.8-7.7); Neutrophils % 52.7 %; Nucleated Red Blood Cells % 0 %; Platelet Count 318 10^3/cmm (157-399); Red Cell Distribution Width 14.6 % (12.1-15.1); White Blood Count 7.87 10^3/uL (3.29-11.43)
[2024-04-25 10:45] LABS: Alanine Aminotransferase 7 U/L (0-33); Alkaline Phosphatase 102 U/L (35-105); Aspartate Amino Transferase 14 U/L (0-32); Blood Urea Nitrogen 11 mg/dL (8-23); Calcium 8.8 mg/dL (8.5-10.5); Carbon Dioxide 23 mmol/L (22-29); Chloride 100 mmol/L (98-107); Globulin 3.8 g/dL (1.3-4.6); Glucose 91 mg/dL (65-115); Osmolality Calculated 281 mOsm/kg (285-295); Sodium 136 mmol/L (136-145); Total Bilirubin 0.4 mg/dL (0.15-1.2); Total Protein 6.8 g/dL (6.6-8.7)
[2024-04-25 10:49] LABS: Anion Gap 17.5 (5-19); Potassium 4.5 mmol/L (3.5-5.1)
--- NOTE | 2024-04-25 12:16 | PC.NURSE ---
this nurse called report to [facility], per pt's nurse, pt is bedbound and will need EMS ride back.
--- NOTE | 2024-04-25 18:23 | PC.NURSE ---
Addendum entered by Valeria Murray RN 04/25/24 18:27: Bolting Machine Operator notified and finding new colostomy bag. Med-Surg and ICU out of stock. Original Note: Pt colostomy bags had completely detached d/t stool around edge. this nurse removed bags, cleaned pt with bath wipes, applied new colostomy bag to L stoma, unable to apply new colostomy bag to center stoma d/t not having supplies at this time. wet dressing applied to stoma, surrounded by dry gauze and chux pad. complete bed change and new gown applied to pt. pt states she is comfortable at this time. updated about status of transport.
--- NOTE | 2024-04-25 18:51 | PC.NURSE ---
per [facility] staff ([facility]) pt is completely bed bound and unable to have assist to wheelchair, need for ambulance ride home. [facility] staff updated on pt transfer status.
== END 2024-04-25 20:40 | disposition home or self-care (01) ==
PROVIDERS: Emergency Provider Student in an Organized Health Care Education/Training Program; PCP Family Medicine
DX: F03.90 Unspecified dementia, unspecified severity, without behavioral disturbance, psychotic disturbance, mood disturbance, and anxiety (principal); R40.4 Transient alteration of awareness; Z79.82 Long term (current) use of aspirin; I25.2 Old myocardial infarction; Z85.43 Personal history of malignant neoplasm of ovary; J44.9 Chronic obstructive pulmonary disease, unspecified; E78.5 Hyperlipidemia, unspecified; Z72.0 Tobacco use
CPT/HCPCS: 36415; 71045; 80053; 85025; 93005; 99285

== ENCOUNTER → 2024-05-04 10:37 | Outpatient (BNVA) | payer MEDICARE, MEDICAID, SELFPAY | PROVIDERS: PCP Family Medicine; Visit Provider Podiatrist Foot & Ankle Surgery | DX: B35.1 Tinea unguium (principal); I73.9 Peripheral vascular disease, unspecified | CPT/HCPCS: 11721 ==